=== PATIENT | female | born 1975 | race Caucasian/White ===

== ENCOUNTER 2018-01-29 11:37 | Emergency (ER) | payer OTHER, SELFPAY ==
[2018-01-29 11:38] VITALS: BP 198/115; PULSE 97; RESP 17; TEMP 36.9; O2SAT 98; BMI 24.7
[2018-01-29 11:45] VITALS: BP 212/117; PULSE 100; RESP 14; O2SAT 100
--- NOTE | 2018-01-29 12:33 | ED.DCSUM_ITS ---
- ER Visit Summary Date of Service: 01/29/18 Chief Complaint: Left lower rib cage pain History of Present Illness: The patient is a 42 F no significant past medical or surgical history. Patient states she had a near slip and fall on Monday. This morning to have a left lower rib cage pain. Denies any abdominal pain. The chief complaint was abdominal pain but she does not have any abdominal pain she is having left lower anterior lateral rib cage pain. Associated nausea. No vomiting. No diarrhea or fever. No dysuria. States she denies any fall she slipped but did not she go down she caught herself. Denies any other complaints. No shortness of breath. Pain is worse with movement. Physical Examination: Middle-aged female no acute distress. Vital signs are stable her initial blood pressure 212/117. Pulse ox 100% on room air no signs of hypoxia. H EENT exam unremarkable atraumatic neck nontender. Lungs clear to auscultation bilaterally. Heart regular rate and rhythm no murmur. Chest wall is tender along the left anterior rib cage on the lower aspect. No crepitance. No subcu air. No bony deformity. Abdomen is soft and nontender. She has no abdominal tenderness whatsoever. No ecchymosis or bruising. It is all left lower rib cage pain. Pelvic girdle intact. She is moving all 4 extremities. The neurovascular intact. Calves are nontender without edema or cords. Neurologically she is awake alert with no focal motor deficits. Back exam the posterior ribs are nontender. The spine is nontender. There is no CVA tenderness. Test Results: Chest x-ray 2 views show acute abnormality read both by myself and the radiologist. Emergency Department Course and Treatment: [place] ?2 here for pain. Treatment Plan: Patient is doing well repeat exam. She is absolutely no abdominal pain on either on the first evaluation or her second exam at this time. They are comfortable being discharged home [place] and Motrin for pain. Disposition: Discharge Impression: Left lower rib cage strain This note was generated with [employer] dictation software. It may contain incorrect words, spelling, and punctuation that were not noted in review of the chart prior to signing ED Disposition - Plan for ED Patient: Chief Complaint: Abd Pain Referrals: Steven Dewey MD [Primary Care Provider] -
[2018-01-29] MEDS: HYDROcodone Bitartrate/Apap 5/325 Tablet PO (12:43)
--- NOTE | 2018-01-29 13:27 | RAD_ITS ---
STUDY: X-RAY CHEST REASON FOR EXAM: Female, 42 years old. Left lower rib pain and abdominal pain. TECHNIQUE: PA and lateral views of the chest. COMPARISON: None. FINDINGS: EKG electrodes are seen. The lungs are clear and expanded. Azygos lobe. There is no demonstrated pleural abnormality. Normal size heart. Normal mediastinum and syed. Normal visualized pulmonary arteries. Normal visualized aortic arch and descending thoracic aorta. Normal visualized thoracic spine. Normal visualized ribs, clavicles, and shoulders. There is no demonstrated abnormality of the visualized soft tissue structures of the upper abdomen. RAD/Chest PA and Lateral IMPRESSION: Normal x-ray examination of the chest. Electronically Signed: Dalton Sen MD at 13:59 EDT Tel [phone], Service support ,
[2018-01-29 14:51] VITALS: BP 198/105; PULSE 84; RESP 14; O2SAT 98
--- NOTE | 2018-01-29 15:30 | DCINST.ED_ITS ---
ED Disposition - Plan for ED Patient: Disposition: Home or Assisted Living Chief Complaint: Abd Pain Instructions: ED Strain Chest Wall Prescriptions: Hydrocodone/Acetaminophen [[place] 7.5-325 Tablet] 1 ea PO Q6H PRN PRN #20 tab PRN Reason: Pain Referrals: Steven Dewey MD [Primary Care Provider] - 1 Week if not improving Additional Instructions: Ice to your left lower rib cage and a pillow to support the rib cage. Motrin for pain and inflammation. And [place] for more severe pain.
[2018-01-29 15:40] VITALS: BP 200/108; PULSE 76; RESP 14; O2SAT 97
== END 2018-01-29 15:50 | disposition home or self-care (01) ==
PROVIDERS: Emergency Provider Emergency Medicine; Family Provider Family Medicine; PCP Family Medicine
DX: S29.012A Strain of muscle and tendon of back wall of thorax, initial encounter (principal); W18.40XA Slipping, tripping and stumbling without falling, unspecified, initial encounter; Y93.9 Activity, unspecified; Y92.9 Unspecified place or not applicable; Y99.9 Unspecified external cause status; R11.0 Nausea; Z72.0 Tobacco use; Z86.718 Personal history of other venous thrombosis and embolism
CPT/HCPCS: 71046; 99282

== ENCOUNTER 2018-10-17 14:42 | Emergency (ER) | payer OTHER, SELFPAY ==
[2018-10-17 14:43] VITALS: BP 160/83; PULSE 101; RESP 16; TEMP 36.4; O2SAT 97; BMI 25.9
--- NOTE | 2018-10-17 15:10 | ED.DCSUM_ITS ---
History of Present Illness Chief Complaint: Back Informant: Patient Onset: Today - 1 hour prior to presentation Injury: - - Walking Timing: Continuous Quality: Dull, Aching Location: Lumbar Current Severity: Severe Maximum Severity: Severe Worsened by: improves with: Movement, Ambulation, Bending Relieved by: Nothing Associated Symptoms: Numbness, - - All other associated symptoms were negative Narrative: Patient is a 43-year-old woman who has no significant history with back problems. She does have history of hypertension diagnosed 1 year ago. She denies bowel bladder dysfunction. She denies saddle paresthesia or anesthesia. She reports foot drop. She denies weakness in her quadricep muscle going up or down steps. She reports numbness of her right leg. The entire leg is numb. There is no history of trauma. He denies fever, chills or night sweats. She denies urologic or gynecologic symptoms. She has taken nothing for the pain. Prior similar symptoms: No Recent Illness/Hospitalization: No - Past Medical History (1) History of hypertension Status: Acute Past Medical History - Allergies and Home Meds Allergies/Adverse Reactions: Allergies latex Allergy (Verified 10/17/18 14:45) Rash Primary Care Physician: Tracy Lee NP-C [Primary Care Provider] - Prior records reviewed: Yes Surgical History: no surgical history Lives: Spouse/ Significant Other Smoking Status: Current every day smoker Drugs: None Review of Systems General: Denies: Chills, Fever, Malaise, Sweats ENT: Denies: Rhinorrhea, Sore throat Cardiovascular: Denies: Chest pain Respiratory: Denies: Dyspnea, Cough, Dyspnea on exertion Gastrointestinal: Denies: Abdominal pain, Nausea, Vomiting Genitourinary: Denies: Dysuria, Hematuria, Frequency Musculoskeletal: Reports: Back pain. Denies: Myalgias, Arthralgias, Neck pain, Swelling, Extremity Pain Skin: Denies: Rash, Wounds Neurological: Reports: Numbness. Denies: Headache, Weakness, Parasthesia Hematologic: Denies: Easy bruising Allergy: Denies: Uticaria Physical Exam Vital Signs/Narrative: Vital Signs Temp Pulse Resp BP Pulse Ox 10/17/18 14:43 97.6 F L 101 H 16 160/83 H 97 Inital Vital Signs reviewed: Yes General: Well nourished, Well developed, - - Patient appears uncomfortable with movement and grimaces. Head: Normocephalic, Atraumatic Eyes: Perrl, EOMI. Negative for: Pale conjunctiva, Scleral icterus, - ENT: Moist mucous membranes, No rhinorrhea Neck: Supple, Nontender Cardiovascular: Regular rate, Regular rhythm, No murmurs, Normal S1, Normal S2 Respiratory: No distress, CTA bilaterally, Chest nontender Abdomen: Soft, Nontender, Nondistended, Normal bowel sounds, No masses Rectal: Deferred Back: Normal Inspection, Paraspinal Tenderness - Bilateral, Negative SLR - Right, Negative SLR - Left. Negative for: Nontender Extremeties: Nontender, No edema, - - DP and PT pulse are 2+ and symmetric. Skin: Normal color, No rash Neuro: Alert, Oriented, Normal Strength, Normal Sensation, Normal DTR, Normal Gait, Normal Reflexes - DTR 3+ patella and ankle and symmetric. There is no clonus or Babinski sign., - - Was observed and patient does not have foot drop. She is able to walk on her heels and toes. She is able do one leg squat right and left side. Reflexes: Right Patellar, Right Achilles, Left Patellar, Left Achilles. Negative for: Right Clonus, Right Babinski, Left Clonus, Left Babinski Psychological: Normal affect Diagnostic/Tx/Re-eval - Medical Decision Making Patient's history and physical is consistent with muscular strain. There is no radicular pain and with negative straight leg test and normal neurologic exam imaging is not indicated. Patient was treated with Naprosyn 5 mg and one [place] tablet in the department and discharged with prescription for Naprosyn. She was informed if she is not better in 3 to 5 days she is to follow-up with her primary care physician. She was discharged with appropriate home-going instructions. Differential is muscular pain, herniated disc, vascular disease. Patient did have vascular studies which were unremarkable. ED Disposition - Plan for ED Patient: Disposition: Home or Assisted Living Diagnosis: Acute bilateral low back pain without sciatica Instructions: ED Sprain Strain Lumbar Prescriptions: Naproxen [Naprosyn] 500 mg PO BID #14 tablet Referrals: Tracy Lee NP-C [Primary Care Provider] - 3-5 Days if not improving Additional Instructions: Your prescription was electronically transmitted to [facility] your designated pharmacy of choice.
[2018-10-17 15:13] VITALS: BP 127/87; PULSE 92; RESP 16; O2SAT 98
[2018-10-17] MEDS: HYDROcodone Bitartrate/Apap 5/325 Tablet PO (15:13)
[2018-10-17] MEDS: Naproxen 250 MG Tablet 500 MG PO (15:15)
== END 2018-10-17 15:25 | disposition home or self-care (01) ==
PROVIDERS: Emergency Provider Emergency Medicine; Family Provider Nurse Practitioner Primary Care; PCP Nurse Practitioner Primary Care
DX: M54.5 Low back pain (principal); I10 Essential (primary) hypertension; M21.379 Foot drop, unspecified foot; F17.200 Nicotine dependence, unspecified, uncomplicated; Z79.899 Other long term (current) drug therapy
CPT/HCPCS: 99283

== ENCOUNTER 2020-07-14 20:40 | Emergency (ER) | payer OTHER, SELFPAY ==
[2020-07-14 20:41] VITALS: BP 189/106; PULSE 102; RESP 16; TEMP 36.6; O2SAT 100; BMI 25.6
--- NOTE | 2020-07-14 20:46 | RAD_ITS ---
STUDY: X-RAY - RIGHT ANKLE REASON FOR EXAM: Female, 44 years old. PAIN TECHNIQUE: 3 view(s) of the ankle. COMPARISON: None. FINDINGS: Normal visualized distal tibia and fibula. Normal medial and lateral malleoli. Normal tibiotalar articulation and ankle mortise. Normal visualized talus and calcaneus. The visualized subtalar, talonavicular, calcaneocuboid and tarsal articulations are normal. Soft tissue swelling overlying the lateral malleolus RAD/Ankle min 3 Views IMPRESSION: Mild lateral malleolus sprain. No acute fracture or dislocation Electronically Signed: Law Hernandez MD at 21:01 EST , Service support ,
--- NOTE | 2020-07-14 20:59 | ED.DCSUM_ITS ---
History of Present Illness Chief Complaint: Lower Extremity Injury Informant: Patient Onset: Days Context: Gradual Onset Current Severity: Mild Maximum Severity: Moderate Narrative: Patient presents with pain over the anterior right ankle for the past 3 days. Patient states the night before pain develop she was bowling. She does not remember rolling her ankle or any injury. Someone at work mentioned tonight that she might a blood clot she became concerned about this. No calf pain or swelling. No history of blood clots. - Past Medical History (1) Asthma Status: Chronic (2) GERD (gastroesophageal reflux disease) Status: Chronic (3) History of hypertension Status: Chronic Past Medical History - Allergies and Home Meds Allergies/Adverse Reactions: Allergies latex Allergy (Verified 07/14/20 20:40) Rash Primary Care Physician: Tracy Lee NP, [employer] [Primary Care Provider] - Surgical History: no surgical history Smoking Status: Current every day smoker Review of Systems General: Denies: Chills, Fever Eyes: Denies: Visual changes - bilaterally ENT: Denies: Bilateral ear pain Cardiovascular: Denies: Chest pain Respiratory: Denies: Dyspnea, Cough Gastrointestinal: Denies: Abdominal pain, Nausea, Vomiting, Diarrhea Genitourinary: Denies: Dysuria Musculoskeletal: Reports: Extremity Pain Skin: Denies: Rash Neurological: Denies: Headache Hematologic: Denies: Easy bruising, Easy bleeding Allergy: Denies: Uticaria Physical Exam Vital Signs/Narrative: Vital Signs Temp Pulse Resp BP Pulse Ox 07/14/20 20:41 97.8 F 102 H 16 189/106 H 100 Inital Vital Signs reviewed: Yes General: Well nourished, Well developed Head: Normocephalic ENT: Moist mucous membranes Neck: Supple Cardiovascular: Regular rate, Regular rhythm Respiratory: No distress, CTA bilaterally Abdomen: Soft, Nontender Extremities: - - Tenderness over the anterior ankle along the tendon sheath. No overlying skin changes. No bony tenderness. Strong distal pulses and normal cap refill. Skin: Normal color Neurological: Alert, Oriented x3 Psychological: Normal affect Diagnostic/Tx/Re-eval Right ankle x-rays obtained per nursing protocol. No acute fracture per my interpretation. - Medical Decision Making I discussed with patient I believe she has tendinitis. She will be treated with a prednisone burst. She will continue Tylenol at home. Rc wrap was applied to the ankle. ED Disposition - Plan for ED Patient: Disposition: Home or Assisted Living Diagnosis: Tendinitis of right ankle Instructions: ED Tendonitis Prescriptions: Prednisone [Deltasone] 40 mg PO DAILY #10 tab Transmission Status: Pending to [facility] #30 Referrals: Tracy Lee NP, [employer] [Primary Care Provider] - 1 Week if not improving
[2020-07-14] MEDS: predniSONE 20 MG Tablet 40 MG PO (21:16)
== END 2020-07-14 21:23 | disposition home or self-care (01) ==
LOC: ED 21:11
PROVIDERS: Emergency Provider Emergency Medicine; PCP Nurse Practitioner Primary Care
DX: M77.51 Other enthesopathy of right foot and ankle (principal); I10 Essential (primary) hypertension; J45.909 Unspecified asthma, uncomplicated; K21.9 Gastro-esophageal reflux disease without esophagitis; F17.200 Nicotine dependence, unspecified, uncomplicated; Z79.899 Other long term (current) drug therapy; Z91.040 Latex allergy status
CPT/HCPCS: 73610; 99283

== ENCOUNTER 2021-04-29 12:28 | Emergency (ER) | payer OTHER, SELFPAY ==
[2021-04-29 12:29] VITALS: BP 138/89; PULSE 106; RESP 18; TEMP 35.4; O2SAT 100; BMI 25.3
--- NOTE | 2021-04-29 13:28 | EDS_ITS ---
HPI History of Present Illness HPI Narrative: Patient per with left hip pain that began today. Patient states she was cooking when she started feeling pain in her posterior left hip. Patient denies any falls. Patient denies any trauma or injury. Patient states her pain has been constant. Patient states her pain is throbbing but burning at times. Patient states her pain is worse with ambulation. Patient admits to some numbness and tingling over the left lower leg and into her toes. Chief Complaint: Lower Extremity Injury Informant: patient Onset/Context/Timing Onset: Today Context: Sudden Onset Timing: Continuous Quality of Pain: Burning and Throbbing Location: Left posterior hip and low back Worsened by: Ambulation Relieved by: Nothing Associated Symptoms Associated Symptoms: Positive for Parasthesia; Negative for Weakness and Loss of Funtion PFSH [facility] Medical History (Updated 04/29/21 @ 13:[address] Murtaza Quach DO) High cholesterol Hypertension Medical History no medical history Home Medications amlodipine 2.5 mg PO DAILY 10/17/18 [History Last Taken Unknown] atorvastatin 10 mg PO DAILY 10/17/18 [History Last Taken Unknown] lisinopril-hydrochlorothiazide 1 ea PO DAILY 10/17/18 [History Last Taken Unknown] prednisone 40 mg PO DAILY #10 tab 07/14/20 [Rx Last Taken Unknown] diazepam 5 mg PO Q8 PRN #10 tab 04/29/21 [Rx Last Taken Unknown] naproxen 500 mg PO BID PRN #20 tab 04/29/21 [Rx Last Taken Unknown] Allergy/AdvReac Type Severity Reaction Status Date / Time latex Allergy Rash Verified 04/29/21 12:29 Surgical History (Updated 04/29/21 @ 13:[address] Murtaza Quach DO) Hx of cholecystectomy Social History Smoking Status: Current every day smoker tobacco type: cigarettes ROS ROS ED Constitutional Constitutional ED: Denies chills or fever(s) Eyes Eyes: Denies blurry vision or change in vision ENT ENT ED: Denies rhinorrhea or sore throat Cardiovascular Cardiovascular: Denies chest pain or palpitations Respiratory/Chest Respiratory/Chest: Denies cough or dyspnea Gastrointestinal Gastrointestinal: Denies nausea or vomiting Genitourinary Genitourinary ED: Denies dysuria or hematuria Musculoskeletal Musculoskeletal: Reports back pain; Denies neck pain Integumentary Denies abscess or rash Neurologic Neurologic: Reports paresthesias LLE; Denies headache(s) or weakness Allergic/Immunologic Allergic/Immunologic ED: Denies mouth swelling or urticaria EXAM Physical Exam Const Vital Signs: 04/29/21 12:29 Temperature 95.7 F L Temperature Source Temporal Pulse Rate 106 H Respiratory Rate 18 Blood Pressure 138/89 H Blood Pressure Mean 105 Pulse Ox 100 Oxygen Delivery Method Room Air Positive well nourished HEENT Reports moist mucous membranes Neck full ROM Back/Spine Back/Spine Narrative: There is tenderness to palpation over the left lower lumbar paraspinal muscles. There is tenderness over the sciatic notch and along the distribution of the sciatic nerve. There is no midline tenderness. There is no bony crepitance or step-off. There is good range of motion of the lumbar spine. Strength is 5/5 bilaterally in the lower extremities. There are no s ensory deficits noted. Deep tendon reflexes are 2+/4 bilaterally in the lower extremities. Neuro oriented x3, CN's II-XII intact bilaterally and moves all extremities Sensorium / Orientation: alert Motor Exam: strength 5/5 throughout Deep Tendon Reflexes: Rt Patellar (L4): 2+, Lt Patellar (L4): 2+, Rt Ankle (S1): 2+ and Lt Ankle (S1): 2+ Deep Tendon Reflexes Back: Rt Patellar (L4): 2+, Lt Patellar (L4): 2+, Rt Ankle (S1): 2+ and Lt Ankle (S1): 2+ Psych mental status grossly normal MDM MDM MDM Narrative Medical decision making narrative: Patient was advised of her findings. Patient was advised that this is most likely sciatica nerve pain. Patient was given prescriptions for Naprosyn and Valium to take at night. Patient was instructed to use ice to the area. Patient was instructed to follow-up with her primary care physician in 5 to 7 days. Patient understood and was agreeable with the plan. All questions were answered. Discharge Plan Triage Chief Complaint: Lower Extremity Injury ED Provider: Murtaza Quach Dx/Rx/DC Orders Clinical Impression: Sciatica Instructions: ED Sciatica Prescriptions: New naproxen 500 MG tablet 500 mg PO BID PRN Qty: 20 RF: 0 diazepam [diazepam] 5 MG tablet 5 mg PO Q8 PRN (Reason: Muscle Spasm) Qty: 10 RF: 0 No Action atorvastatin 10 MG tablet 10 mg PO DAILY RF: 0 lisinopril-hydrochlorothiazide 1 EACH tablet 1 ea PO DAILY RF: 0 amlodipine 2.5 MG tablet 2.5 mg PO DAILY RF: 0 prednisone 20 MG tablet 40 mg PO DAILY Qty: 10 RF: 0 Primary Care Provider: Tracy Lee NP Referrals: Tracy Lee NP, [employer] [Primary Care Provider] - Disposition Disposition: Home, Self Care
[2021-04-29] MEDS: diazePAM 5 MG Tablet PO (13:55)
[2021-04-29] MEDS: Naproxen 250 MG Tablet 500 MG PO (13:55)
[2021-04-29 14:02] VITALS: RESP 14
== END 2021-04-29 14:02 | disposition home or self-care (01) ==
PROVIDERS: Emergency Provider Emergency Medicine; PCP Nurse Practitioner Primary Care
DX: M54.32 Sciatica, left side (principal); I10 Essential (primary) hypertension; E78.00 Pure hypercholesterolemia, unspecified; F17.210 Nicotine dependence, cigarettes, uncomplicated; Z79.52 Long term (current) use of systemic steroids; Z79.899 Other long term (current) drug therapy
CPT/HCPCS: 99283

== ENCOUNTER 2022-03-18 23:21 | Inpatient (IN) | payer SELFPAY ==
[2022-03-18 23:21] VITALS: BP 195/124; PULSE 137; RESP 28; TEMP 36.4; O2SAT 94
[2022-03-18 23:22] VITALS: BP 195/124; PULSE 137; RESP 28; TEMP 36.4; O2SAT 94; BMI 26.6
[2022-03-18 23:36] VITALS: O2SAT 95
[2022-03-18 23:41] VITALS: BP 218/109; PULSE 124; RESP 20; O2SAT 95
--- NOTE | 2022-03-18 23:51 | EKG12_ITS ---
Test Reason : DYSRHYTHMIA Blood Pressure : / mmHG Vent. Rate : 123 BPM Atrial Rate : 123 BPM P-R Int : 122 ms QRS Dur : 064 ms QT Int : 336 ms P-R-T Axes : 055 058 043 degrees QTc Int : 481 ms Sinus tachycardia with Premature supraventricular complexes Otherwise normal ECG Confirmed by SIMEON TOLBERT, MARIN ([id number]), image editor ANABELLA BETANCUR ([id number]) on 03/21/2022 8:34:54 AM Referred By: DONNIE Confirmed By:MARIN HENDRIX MD
--- NOTE | 2022-03-18 23:54 | ED.RN ---
no old ekgs on file
[2022-03-19] VITALS (21 sets, daily range): BP systolic 120–196; BP diastolic 68–109; PULSE 77–119; RESP 12–23; TEMP 36.4–37.4; O2SAT 84–100; BMI 25.8
[2022-03-19] MEDS: dilTIAZem 25 MG/5 ML Vial 20 MG IV BOLUS (00:05)
[2022-03-19] MEDS: 0.9% Normal Saline 1,000 ML 999 ML IV (00:06)
--- NOTE | 2022-03-19 00:15 | CT_ITS ---
STUDY: CTA CHEST REASON FOR EXAM: Female, 46 years old. dyspnea RADIATION DOSAGE (If Supplied By Facility): CTDIvol = ( 10.16 ) mGy, DLP = ( 388.54 ) mGycm TECHNIQUE: The examination was performed with the intravenous administration of IV 100mL Isovue-370. Post-processing of the angiographic images was performed, with multiplanar reformation and 3D reconstruction. Individualized dose optimization techniques were used for this CT. COMPARISON: None. FINDINGS: Normal enhancement of the main pulmonary artery and right and left pulmonary arteries. Normal enhancement of the bilateral peripheral pulmonary arteries. There is no demonstrated pulmonary embolism. Normal thoracic aorta and visualized great vessels. There is no demonstrated aortic dissection. Normal heart and pericardium. Normal mediastinum. Normal hilar regions. Normal visualized trachea and bronchi. The lungs are well expanded. There is diffuse interstitial thickening in both lungs suggesting pulmonary edema. Normal pleura. Normal chest wall structures. Normal osseous structures. Normal visualized upper abdomen. CT/CTA Chest W/WO Contrast IMPRESSION: Pulmonary edema. There is no demonstrated pulmonary embolism or arterial dissection. Electronically Signed: Nikolai Keating MD at 1:21 EDT ,
[2022-03-19 00:16] LABS: Absolute Neutrophil Count 6.8 X10^3/uL (2.0-7.7); Basophil# 0.01 X10^3/uL; Basophil% 0.1 % (0-1); Eosinophil# 0.12 X10^3/uL; Eosinophils% 1.1 % (0-5); Hematocrit 37.1 % (37-47); Hemoglobin 13.1 g/dL (12.0-15.0); Lymphocyte % 31.2 % (19-41); Mean Corp Hgb Conc 35.3 g/dL (32-36); Mean Corpuscular Hgb 33.8 pg (27.0-32.0); Mean Corpuscular Volume 95.6 fL (81-99); Mean Platelet Vol. 10.1 fl (6.2-12.0); Monocyte% 7.1 % (0-10); NRBC Flagged by Analyzer 0 % (0-5); Neutrophil # 6.77 X10^3/uL (2.7-7.7); Neutrophil % 60.2 % (47-70); Platelet Count 265 K/mm3 (150-450); RBC Distribution Width CV 13.5 % (11.6-14.6); RBC Distribution Width SD 47.7 fl (35.1-43.9); Red Blood Count 3.88 M/mm3 (4.2-5.4); White Blood Count 11.2 K/mm3 (4.4-11.0)
[2022-03-19 00:24] LABS: Internal QC Validated? YES +Cl - CLEAR BKGD; Pregnancy, Urine Negative Negative
[2022-03-19 00:24] LABS: Partial Thromboplast Time 26.7 Seconds (24.1-36.2); Prothrombin Time (Protime)PT. 12.6 SECONDS (11.7-14.9)
[2022-03-19 00:34] LABS: Anion Gap 10 (5-15); BUN 14 mg/dL (7-18); Calcium,Total 8.6 mg/dL (8.5-10.1); Chloride 106 mmol/L (98-107); Creatinine, Serum 1.17 mg/dL (0.55-1.02); EST Glomerular Filtration Rate 53 mL/min (>60); Est Glom Filt Rate - Afr Amer 64 mL/min (>60); Estimated Creatinine Clearance 48.53 ml/min; Glucose 120 mg/dL (74-106); Magnesium 2.1 mg/dL (1.6-2.6); Potassium 2.9 mmol/L (3.5-5.1); Sodium Level 138 mmol/L (136-145); Troponin-I HS 98 pg/mL (3.0-54.0)
[2022-03-19] MEDS: Morphine 4 MG/ML Syringe IV (00:55)
[2022-03-19] MEDS: Ondansetron 4 MG/2 ML Vial IV ×2 (00:55→14:04)
[2022-03-19] MEDS: Furosemide 40 MG/4 ML Vial IV (01:43)
[2022-03-19] MEDS: Nitroglycerin SL (ED/IMG/CATH) 0.4 MG TABLET SL (01:44)
[2022-03-19 02:16] LABS: BNP,B-Type NATRIURETIC PEPTIDE 542.8 pg/mL (0-100)
[2022-03-19 02:18] LABS: Troponin-I HS 115 pg/mL (3.0-54.0)
[2022-03-19] MEDS: Morphine 2 MG/ML Syringe IV (02:27)
--- NOTE | 2022-03-19 03:20 | EKG12_ITS ---
Test Reason : AM EKG Blood Pressure : / mmHG Vent. Rate : 076 BPM Atrial Rate : 076 BPM P-R Int : 108 ms QRS Dur : 062 ms QT Int : 444 ms P-R-T Axes : 050 060 072 degrees QTc Int : 499 ms Sinus rhythm with short TX Prolonged QT Abnormal ECG When compared with ECG of 19-MAR-2022 04:21, MANUAL COMPARISON REQUIRED, DATA IS UNCONFIRMED Confirmed by LAILA TOLBERT, MASTER ([id number]), restaurant expeditor ANABELLA BETANCUR ([id number]) on 03/21/2022 12:49:12 PM Referred By: SERG Confirmed By:MASTER ULLOA MD
[2022-03-19] MEDS: Aspirin 325 MG Tablet PO (03:21)
[2022-03-19] MEDS: Potassium Chloride Oral Tablet 20 MEQ 40 MEQ PO (03:21)
[2022-03-19] MEDS: Enoxaparin 80 MG/0.8 ML Syringe 70 MG SC ×2 (03:22→21:04)
--- NOTE | 2022-03-19 03:22 | EX.ED.DYSGE1 ---
HPI History of Present Illness Chief Complaint: Shortness of Breath Narrative Narrative: Patient is a 46-year-old female with history of hypertension hyperlipidemia. She states roughly 4 weeks ago she stopped her medications. She reports that she has been feeling normal but this evening she was sitting down watching TV when she developed sudden onset chest pressure and shortness of breath sensation. She denies any nausea vomiting or diaphoresis associated with this. She does report a history of a DVT approximately 3 to 4 years ago and states she is not on blood thinner medication. [facility] Medical History High cholesterol Hypertension Home Medications amlodipine 2.5 mg tablet 2.5 mg PO DAILY 10/17/18 [History Last Taken Unknown] atorvastatin 10 mg tablet 10 mg PO DAILY 10/17/18 [History Last Taken Unknown] lisinopril 20 mg-hydrochlorothiazide 12.5 mg tablet 1 ea PO DAILY 10/17/18 [History Last Taken Unknown] Allergy/AdvReac Type Severity Reaction Status Date / Time latex Allergy Rash Verified 03/18/22 23:38 Family History (Updated 03/19/22 @ 03:[address] Murtaza Elias DO) Other Heart disease Surgical History (Updated 04/29/21 @ 13:[address] Murtaza Quach DO) Hx of cholecystectomy Social History Smoking Status: Current every day smoker tobacco type: cigarettes alcohol intake: current alcohol intake frequency: a few times a month substance use type: marijuana ROS ROS ED Constitutional Constitutional ED: Denies chills or fever(s) ENT ENT ED: Denies sore throat Cardiovascular Cardiovascular: Reports chest pain and racing heartbeat Respiratory/Chest Respiratory/Chest: Reports dyspnea; Denies cough Gastrointestinal Gastrointestinal: Denies abdominal pain, diarrhea, nausea or vomiting Genitourinary Genitourinary ED: Denies dysuria Musculoskeletal Musculoskeletal: Denies myalgias Integumentary Denies rash Neurologic Neurologic: Denies headache(s) Hematologic/Lymphatic Hematologic/Lymphatic: Denies easy bleeding or easy bruising EXAM Physical Exam Const Vital Signs: 03/18/22 23:22 03/18/22 23:21 03/18/22 23:36 Temperature 97.6 F L 97.6 F L Temperature Source Temporal Temporal Pulse Rate 137 H 137 H Respiratory Rate 28 H 28 H Respiratory Effort Short of Breath Labored Blood Pressure 195/124 H 195/124 H Blood Pressure Mean 147 147 Pulse Ox 94 94 Oxygen Delivery Method Room Air Room Air Room Air Oxygen Flow Rate (L/min) 03/18/22 23:41 03/19/22 01:00 03/19/22 01:08 Temperature Temperature Source Pulse Rate 124 H 113 H Respiratory Rate 20 H 20 H Respiratory Effort Blood Pressure 218/109 H 184/95 H Blood Pressure Mean 145 124 Pulse Ox 95 84 93 Oxygen Delivery Method Room Air Room Air Nasal Cannula Oxygen Flow Rate (L/min) 4 03/19/22 01:44 03/19/22 01:59 Temperature Temperature Source Pulse Rate 119 H 107 H Respiratory Rate 12 Respiratory Effort Blood Pressure 192/109 H 166/95 H Blood Pressure Mean 118 Pulse Ox 92 Oxygen Delivery Method Room Air Oxygen Flow Rate (L/min) Positive well nourished and well developed General Appearance ED: well developed HEENT Reports moist mucous membranes Eyes PERRL and EOMs intact bilaterally Neck supple and no JVD Chest Wall palpation of chest normal Resp Resp Narrative: Patient is tachypneic but there is no accessory muscle use nasal flaring or retractions. Breath sounds are slightly diminished throughout with faint rhonchi in the bilateral bases consistent with her history of smoking. Cardio regular rhythm Rate: tachycardic and other Other Details: Tachycardic rate with regular rhythm. radial pulses are plus 2 out of 4 bilaterally are equal and symmetric GI non-tender and non-distended GI Narrative: No voluntary guarding or rigidity no pulsatile mass Auscultation: normoactive bowel sounds Palpation: soft Extremity normal to inspection Extremity Narrative: No asymmetric edema no pitting edema negative Homans' sign bilaterally Neuro oriented x3 and CN's II-XII intact bilaterally Sensorium / Orientation: alert Psych mental status grossly normal Skin no rashes or lesions noted MDM MDM MDM Narrative Medical decision making narrative: Patient presented to the ER hypertensive and tachycardic with tachypnea but was satting in the mid 90s on room air. With the sudden onset of symptoms and the fact she had a previous DVT and is now tachycardic I have concern for development of a pulmonary embolus. Secondary to this a CTA was obtained along with basic blood work. Labs showed hypokalemia with a potassium of 2.9 and elevated troponin at 98. CTA revealed pulmonary edema changes without infiltrate aortic dissection or pulmonary embolus. 2-hour delta troponin did increase slightly to 115. At this time patient will need admitted to the hospital secondary to the elevated troponin and new findings of pulmonary edema. Lab Data Attestation: I reviewed the patient's lab results. Labs: Laboratory Results - last 24 hr 03/19/22 03/19/22 03/19/22 00:07 00:07 00:07 WBC 11.2 H RBC 3.88 L Hgb 13.1 Hct 37.1 MCV 95.6 MCH 33.8 H MCHC 35.3 RDW Std Deviation 47.7 H RDW Coeff of Shilo 13.5 Plt Count 265 MPV 10.1 Immature Gran % (Auto) 0.300 Neut % (Auto) 60.2 Lymph % (Auto) 31.2 [place] % (Auto) 7.1 Eos % (Auto) 1.1 Baso % (Auto) 0.1 Absolute Neuts (auto) 6.8 Absolute Lymphs (auto) 3.50 Nucleated RBC % 0 PT 12.6 INR 1.0 APTT 26.7 Sodium 138 Potassium 2.9 L Chloride 106 Carbon Dioxide 22.0 Anion Gap 10 BUN 14 Creatinine 1.17 H Estim Creat Clear Calc 48.53 Est GFR (MDRD) Af Amer 64 Est GFR (MDRD) Non-Af 53 L BUN/Creatinine Ratio 12.0 Glucose 120 H Calcium 8.6 Magnesium 2.1 Troponin I High Sens 98 H B-Natriuretic Peptide Urine Test 03/19/22 03/19/22 03/19/22 00:10 01:56 01:56 WBC RBC Hgb Hct MCV MCH MCHC RDW Std Deviation RDW Coeff of Shilo Plt Count MPV Immature Gran % (Auto) Neut % (Auto) Lymph % (Auto) [place] % (Auto) Eos % (Auto) Baso % (Auto) Absolute Neuts (auto) Absolute Lymphs (auto) Nucleated RBC % PT INR APTT Sodium Potassium Chloride Carbon Dioxide Anion Gap BUN Creatinine Estim Creat Clear Calc Est GFR (MDRD) Af Amer Est GFR (MDRD) Non-Af BUN/Creatinine Ratio Glucose Calcium Magnesium Troponin I High Sens 115 H B-Natriuretic Peptide 542.8 H Urine Test Negative Radiography Diagnostic Testing: Clinical Impression(s) from Imaging Studies Chest CTA 03/19/22 00:15 IMPRESSION: Pulmonary edema. There is no demonstrated pulmonary embolism or arterial dissection. Electronically Signed: Nikolai Keating MD at 1:21 EDT , Critical Care Time Critical Care Time: Yes Critical care time (excluding procedures): - (Critical care time of 31 minutes) Discharge Plan Triage Chief Complaint: Shortness of Breath ED Provider: Chauncey Ray Dx/Rx/DC Orders Clinical Impression: Non-ST elevated myocardial infarction (non-STEMI), Pulmonary edema, Hypertension, Acute hypokalemia Primary Care Provider: Tracy Lee NP Disposition Disposition: Acute Care Hospital [facility]
--- NOTE | 2022-03-19 03:23 | HP.PCM.HOS_ITS ---
HPI - General General Date of Admission: 03/19/22 Date of Service: 03/19/22 Chief Complaint: chest pain HPI Narrative JESÚS TINOCO, is a 46 F who presents with chest pain. Around 11 PM on the , patient was laying down watching TV where she developed midsternal chest pressure. She felt short of breath as well. And roommate called EMS and scan to the hospital. In the hospital, her blood pressure was extremely high at 218/109. There was concern for PE so patient did undergo a CTA of her chest. No PE was identified but some pulmonary edema was seen. Her troponin went from 98-1 15. Her BNP was elevated at 542. Patient received 20 mg of diltiazem, morphine, nitroglycerin, 40 mg of furosemide, 3 and 25 mg of aspirin, 78 mg of enoxaparin and potassium. Patient feels better but still having chest pressure. Patient has never had an event like this before. Patient does have a history of hypertension but there was an issue with her getting her medications where the prescription had lapsed and patient did not get it filled. She did not feel it necessary as she felt fine. [facility] Medical History High cholesterol Hypertension Home Medications amlodipine 2.5 mg tablet 2.5 mg PO DAILY 10/17/18 [History Last Taken Unknown] atorvastatin 10 mg tablet 10 mg PO DAILY 10/17/18 [History Last Taken Unknown] lisinopril 20 mg-hydrochlorothiazide 12.5 mg tablet 1 ea PO DAILY 10/17/18 [History Last Taken Unknown] Allergy/AdvReac Type Severity Reaction Status Date / Time latex Allergy Rash Verified 03/18/22 23:38 Family History (Updated 03/19/22 @ 03:[address] Murtaza Elias DO) Other Heart disease Surgical History Hx of cholecystectomy Social History (Updated 03/19/22 @ 03:[address] Murtaza Elias DO) Smoking Status: Current every day smoker tobacco type: cigarettes alcohol intake: current alcohol intake frequency: a few times a month substance use type: marijuana Vital Signs Vital Signs Vital Signs: 03/18/22 23:22 03/18/22 23:21 03/18/22 23:36 Temperature 36.4 C L 36.4 C L Temperature Source Temporal Temporal Pulse Rate 137 H 137 H Respiratory Rate 28 H 28 H Respiratory Effort Short of Breath Labored Blood Pressure 195/124 H 195/124 H Blood Pressure Mean 147 147 Pulse Ox 94 94 Oxygen Delivery Method Room Air Room Air Room Air Oxygen Flow Rate (L/min) 03/18/22 23:41 03/19/22 01:00 03/19/22 01:08 Temperature Temperature Source Pulse Rate 124 H 113 H Respiratory Rate 20 H 20 H Respiratory Effort Blood Pressure 218/109 H 184/95 H Blood Pressure Mean 145 124 Pulse Ox 95 84 93 Oxygen Delivery Method Room Air Room Air Nasal Cannula Oxygen Flow Rate (L/min) 4 03/19/22 01:44 03/19/22 01:59 03/19/22 03:13 Temperature 36.7 C Temperature Source Temporal Pulse Rate 119 H 107 H 111 H Respiratory Rate 12 23 H Respiratory Effort Blood Pressure 192/109 H 166/95 H 187/101 H Blood Pressure Mean 118 129 Pulse Ox 92 97 Oxygen Delivery Method Room Air Room Air Oxygen Flow Rate (L/min) Weight Weight: 66.2 kg Body Mass Index (BMI) 26.6 Physical Exam Const alert and no apparent distress HEENT normocephalic, head/scalp atraumatic, hearing grossly normal bilaterally and moist oral mucous membranes Eyes PERRL and EOMs intact bilaterally Neck no lymphadenopathy and supple Resp normal respiratory effort, no retractions, no use of accessory muscles and clear to auscultation bilaterally Cardio regular rate, regular rhythm, S1 normal heart sound and S2 normal heart sound GI normal to inspection, nondistended, normoactive bowel sounds, soft to palpation, non-tender, non-distended and hepatosplenomegaly Extremity normal to inspection and full ROM Neuro moves all extremities and no focal motor deficits Neuro Narrative: Normal gait Psych affect normal Results Lab / Micro Data Attestation: I reviewed the patient's lab results. Result Diagrams: 03/19/22 00:07 03/19/22 00:07 Labs: Laboratory Results - last 24 hr 03/19/22 00:07: WBC 11.2 H, RBC 3.88 L, Hgb 13.1, Hct 37.1, MCV 95.6, MCH 33.8 H , MCHC 35.3, RDW Std Deviation 47.7 H, RDW Coeff of Shilo 13.5, Plt Count 265, MPV 10.1, Immature Gran % (Auto) 0.300, Neut % (Auto) 60.2, Lymph % (Auto) 31.2, Stokes % (Auto) 7.1, Eos % (Auto) 1.1, Baso % (Auto) 0.1, Absolute Neuts (auto) 6.8, Absolute Lymphs (auto) 3.50, Nucleated RBC % 0 03/19/22 00:07: PT 12.6, INR 1.0, APTT 26.7 03/19/22 00:07: Sodium 138, Potassium 2.9 L, Chloride 106, Carbon Dioxide 22.0, Anion Gap 10, BUN 14, Creatinine 1.17 H, Estim Creat Clear Calc 48.53, Est GFR (MDRD) Af Amer 64, Est GFR (MDRD) Non-Af 53 L, BUN/Creatinine Ratio 12.0, Glucose 120 H, Calcium 8.6, Magnesium 2.1, Troponin I High Sens 98 H 03/19/22 00:10: Urine Test Negative 03/19/22 01:56: B-Natriuretic Peptide 542.8 H 03/19/22 01:56: Troponin I High Sens 115 H EKG Initial EKG: Attestation: I personally reviewed and interpreted this EKG as follows: Prior EKG tracings: available for review EKG Rhythm Intrepretation: Sinus Tachycardia Radiology Impression Chest CTA 03/19/22 00:15 IMPRESSION: Pulmonary edema. There is no demonstrated pulmonary embolism or arterial dissection. Electronically Signed: Nikolai Keating MD at 1:21 EDT , Assessment & Plan Assessment/Plan (1) Non-STEMI (non-ST elevated myocardial infarction): PLAN: May be type 2 given CHF and hypertensive urgency. However, risk factors given uncontrolled HTN, tobacco abuse and family history Plan: * continue ASA, enoxaparin * check echo * consult cardiology. DW pt about the possibility of a LHC (if so, then it may not be able to be done until 03/21) (2) CHF exacerbation: PLAN: suspect HFpEF, but no baseline echo. Also, I suspect flash pulmonary edema given hypertensive urgency. Received 40 of IV furosemide in ED Plan: * check echo * furosemide 40 PO BID for now. Pt well compensated now. (3) Hypertensive urgency: PLAN: Has not taken medication in 3 weeks when there was issue for a lapsed Rx. She did not pursue it further since she felt fine. Start lisinopril 20/d in addition to furosmide. PLAN: Plan VTE prophylaxis: anticoagulation. Charges/Coding Visit Charges Inpatient E&M: 59856 Init Hosp L3
[2022-03-19] MEDS: hydrALAZINE 20 MG/ML Vial 5 MG IV ×2 (04:42→09:16)
[2022-03-19 05:46] LABS: Bedside Glucose 107 mg/dL (74-106)
--- NOTE | 2022-03-19 05:55 | ECHOD_ITS ---
Reason For Study: Chest pain, SOB Procedure This was a 2D Doppler, Color Flow transthoracic echocardiogram. The exam was of adequate technical quality. Exam performed portable in patient room. Left Ventricle Normal LV size. Left ventricular systolic function is normal. The estimated ejection fraction is 65 %. Diastolic function is indeterminate. No regional wall motion abnormalities noted. Right Ventricle Normal RV size. Normal systolic function. Atria Normal left atrium. Normal right atrium. No doppler evidence for ASD. Mitral Valve There is no mitral annular calcification. Mild focal mitral valve calcification of the anterior leaflet. Trivial mitral valve insufficiency. Tricuspid Valve Normal tricuspid valve. Trivial tricuspid valve insufficiency. Unable to estimate RV systolic pressure due to insufficient tricuspid regurgitant envelope. Aortic Valve Trisinus/trileaflet aortic valve. Mild focal aortic valve calcification. Pulmonic Valve The pulmonic valve is not well visualized. Great Vessels Normal sized aortic root. Pericardium/Pleural No pericardial effusion. MMode/2D Measurements & Calculations LVIDd: 3.8 cm IVSd: 1.2 cm Ao root diam: 2.3 cm LVIDs: 2.4 cm LVPWd: 1.1 cm RVDd: 3.0 cm FS: 36.4 % LAV(MOD-bp): 38.9 ml LVAd ap4: 19.2 cm2 LVAd ap2: 20.7 cm2 LAV(MOD-bp) Indexed: 23.2 ml/m2 LVLd ap4: 7.0 cm LVLd ap2: 7.5 cm LAV(MOD-sp2): 40.5 ml EDV(MOD-sp4): 43.6 ml EDV(MOD-sp2): 49.2 ml LAV(MOD-sp4): 36.6 ml EDV(sp4-el): 44.6 ml EDV(sp2-el): 48.0 ml LVAs ap4: 11.6 cm2 LVAs ap2: 11.3 cm2 LVLs ap4: 6.2 cm LVLs ap2: 6.7 cm ESV(MOD-sp4): 18.8 ml ESV(MOD-sp2): 17.7 ml ESV(sp4-el): 18.3 ml ESV(sp2-el): 16.3 ml EF(MOD-sp4): 56.9 % EF(MOD-sp2): 64.1 % EF(sp4-el): 58.9 % SV(MOD-sp4): 24.8 ml SV(MOD-sp2): 31.6 ml SV(sp4-el): 26.3 ml LA dimension(2D): 3.8 cm LA A4 area: 14.9 cm2 RA A4 area: 10.2 cm2 Time Measurements MV dec time: 0.14 sec Doppler Measurements & Calculations MV E max nick: 134.9 cm/sec Lat Peak E' Nick: 6.9 cm/sec Med Peak E' Nick: 8.9 cm/sec MV A max nick: 79.8 cm/sec E/E' lat: 19.7 E/E' med: 15.2 MV E/A: 1.7 MV dec slope: 962.1 cm/sec2 Ao V2 max: 170.1 cm/sec LV V1 max: 152.7 cm/sec Ao max P.6 mmHg LV V1 max P.3 mmHg PA V2 max: 89.2 cm/sec ECHO/Echo Complete Interpretation Summary Left ventricular systolic function is normal. The estimated ejection fraction is 65 %. Mild focal mitral valve calcification of the anterior leaflet. Trivial mitral valve insufficiency. Trivial tricuspid valve insufficiency. Mild focal aortic valve calcification. Unable to estimate RV systolic pressure due to insufficient tricuspid regurgita nt envelope. Diastolic function is indeterminate. Ordering Physician: Murtaza Elias Referring Physician: Tracy Lee Performed By: Akilah Becker RDCS
[2022-03-19] MEDS: oxyCODONE 5 MG Tablet PO ×2 (05:58→10:24)
[2022-03-19 06:41] LABS: Troponin-I HS 105 pg/mL (3.0-54.0)
[2022-03-19 06:48] LABS: Anion Gap 9 (5-15); BUN 13 mg/dL (7-18); BUN/Creat Ratio 12.7 RATIO (10-20); Calcium,Total 7.9 mg/dL (8.5-10.1); Chloride 105 mmol/L (98-107); Cholesterol 234 mg/dL (200); Creatinine, Serum 1.02 mg/dL (0.55-1.02); EST Glomerular Filtration Rate 62 mL/min (>60); Est Glom Filt Rate - Afr Amer 76 mL/min (>60); Estimated Creatinine Clearance 55.67 ml/min; Glucose 100 mg/dL (74-106); High Density Lipoprotein 45 mg/dL; Potassium 3.5 mmol/L (3.5-5.1); Sodium Level 136 mmol/L (136-145); Thyroid Stim Hormone (TSH) 3.34 uIU/mL (0.358-3.74); Triglycerides 155 mg/dL; Very Low Density Lipoprotein 31 mg/dL (5-40)
[2022-03-19 07:05] LABS: Bedside Glucose 108 mg/dL (74-106)
[2022-03-19] MEDS: Furosemide 40 MG Tablet PO ×2 (09:08→17:07)
[2022-03-19] MEDS: Lisinopril 20 MG Tablet PO (09:08)
[2022-03-19] MEDS: Aspirin E.C. 81 MG Tablet PO (09:08)
[2022-03-19] MEDS: Acetaminophen 325 MG Tablet 650 MG PO (09:09)
--- NOTE | 2022-03-19 10:50 | CASEMGMT ---
RN CM Face to Face with patient for initial transition planning/care coordination assessment. RN CM introduced self and role at [facility]. Patient lying in bed, alert and oriented, family at bedside. Patient willing to participate in assessment and is able to answer all questions appropriately. Care providers, pharmacy, and demographics verified. Patient wishes to discharge home, denies need for home health at this time. Patient states she has no further needs or concerns at this time. CM to follow for discharge planning needs that may arise. PCP: SHAHNAZ Lee Specialists: none Preferred Pharmacy: [facility] Insurance: [facility] [employer] [facility] Prescription Benefit: yes Living Will/HPOA: none LNOK: mother Living Arrangements: Patient lives with friend in a single story home with 2 steps and railing to enter the home. Patient is independent at home. Transportation: self, family DME/HHC: Patient states he has crutches, grab bars, and BP cuff at home. Patient denies previous HHC Disposition Plan: Patient to discharge home with family support and follow-up plans in place. Jacklyn GLASS, RN, CM
--- NOTE | 2022-03-19 11:46 | PCM.PN.HOSP ---
Subjective Subjective Follow-up for non-STEMI Patient was admitted with chest discomfort and shortness of breath/dyspnea. Patient with high troponin. Blood pressure was high, accelerated hypertension. Chest x-ray initially reviewed and shows pulmonary edema and patient feels better after Lasix. Shortness of breath is improved. She also recently developed cough. Objective Data Objective Data Vital Signs: Vital Signs Temp Pulse Resp BP Pulse Ox O2 Del Method O2 Flow Rate 97.9 F 100 16 155/79 H 100 Room Air 4 03/19/22 10:03/19/22 10:03/19/22 10:03/19/22 10:03/19/22 10:03/19/22 10:03/19/22 01:08 Oxygen Flow Rate (L/min) 4 Oxygen Delivery Method Room Air Weight: 141 lb 1.533 oz Body Mass Index (BMI) 25.8 Intake & Output: Intake and Output for Last 24 Hours 03/17/22 03/18/22 03/19/22 23:59 23:59 23:59 Intake Total 1000 / 1000 Balance 1000 / 1000 Lab / Micro Data Result Diagrams: 03/19/22 00:07 03/19/22 05:32 Labs: Laboratory Results - last 24 hr 03/19/22 00:07: WBC 11.2 H, RBC 3.88 L, Hgb 13.1, Hct 37.1, MCV 95.6, MCH 33.8 H, MCHC 35.3, RDW Std Deviation 47.7 H, RDW Coeff of Shilo 13.5, Plt Count 265, MPV 10.1, Immature Gran % (Auto) 0.300, Neut % (Auto) 60.2, Lymph % (Auto) 31.2, [place] % (Auto) 7.1, Eos % (Auto) 1.1, Baso % (Auto) 0.1, Absolute Neuts (auto) 6.8, Absolute Lymphs (auto) 3.50, Nucleated RBC % 0 03/19/22 00:07: PT 12.6, INR 1.0, APTT 26.7 03/19/22 00:07: Sodium 138, Potassium 2.9 L, Chloride 106, Carbon Dioxide 22.0, Anion Gap 10, BUN 14, Creatinine 1.17 H, Estim Creat Clear Calc 48.53, Est GFR (MDRD) Af Amer 64, Est GFR (MDRD) Non-Af 53 L, BUN/Creatinine Ratio 12.0, Glucose 120 H, Calcium 8.6, Magnesium 2.1, Troponin I High Sens 98 H 03/19/22 00:10: Urine Test Negative 03/19/22 01:56: B-Natriuretic Peptide 542.8 H 03/19/22 01:56: Troponin I High Sens 115 H 03/19/22 04:16: POC Glucose 107 H 03/19/22 05:32: Sodium 136, Potassium 3.5, Chloride 105, Carbon Dioxide 22.0, Anion Gap 9, BUN 13, Creatinine 1.02, Estim Creat Clear Calc 55.67, Est GFR (MDRD) Af Amer 76, Est GFR (MDRD) Non-Af 62, BUN/Creatinine Ratio 12.7, Glucose 100, Calcium 7.9 L, Triglycerides 155, Cholesterol 234 H, LDL Cholesterol 158 H, VLDL Cholesterol 31, HDL Cholesterol 45, TSH 3.34 03/19/22 05:32: Troponin I High Sens 105 H 03/19/22 06:41: POC Glucose 108 H Radiography Diagnostic Testing: Radiology Impression Chest CTA 03/19/22 00:15 IMPRESSION: Pulmonary edema. There is no demonstrated pulmonary embolism or arterial dissection. Electronically Signed: Nikolai Keating MD at 1:21 EDT , Physical Exam Narrative No prior heart disease. Physical exam General: Alert, Oriented x3, Cooperative HEENT: Atraumatic, PERRLA, EOMI, Normocephalic Oral: No Gingival or Mucosal Lesions/ Ulcerations Neck: Supple, No JVD, Negative Carotid Bruits Lungs: Air entry equal in bilateral lung bases. No crepitation/rhonchi Cardiovascular: Regular rate, Regular Rhythm, Normal S1, Normal S2, No murmurs Abdomen: Bowel Sounds Present, Soft, Non Tender, Non-Distended : No renal angle tenderness. No suprapubic tenderness. Extremities: No edema, Capillary Refill Less than 3 Seconds Skin: No rashes, No breakdown Musculoskeletal: No Tenderness to Palpation of Joints or Extremities Neurological: Cranial nerves II-XII grossly intact, DTR 2+/4 and Symmetrical, Neuro grossly intact Psych/Mental Status: Normal Affect, Appropriate. Assessment & Plan Assessment/Plan (1) Non-STEMI (non-ST elevated myocardial infarction): PLAN: Non-STEMI, type II OH due to increased demand from CHF exacerbation and hypertensive urgency/instructed hypertension. However, risk factors given uncontrolled HTN, tobacco abuse and family history right of way clearer shows sinus rhythm/sinus tachycardia. Twelve-lead EKG sinus tachycardia with PAC possible biatrial enlargement. 2D echo EF 65%, no major valve insufficiency/stenosis. Chest CTA individually reviewed shows pulmonary edema. No PE or arterial dissection. Management plan Patient was seen and evaluated by master machinist. Consult reviewed and appreciated. Troponins 98, 115 and 105, flat and mildly elevated. Type II OH event Continue aspirin and enoxaparin. Telephone Information Supervisor recommended continue medical management and will follow whether she requires invasive LHC. (2) CHF exacerbation: PLAN: Acute on chronic HFpEF from uncontrolled blood pressure BNP 542. Heart failure core measures including intake and output, fluid restriction less than 1500 mL, daily weight monitoring, kidney and electrolytes monitoring. Continue Lasix 40 mg twice daily. (3) Hypertensive urgency: PLAN: Has not taken medication in 3 weeks when there was issue for a lapsed Rx. She did not pursue it further since she felt fine. Start lisinopril 20 milligrams daily in addition to furosmide. PLAN: Plan VTE prophylaxis: anticoagulation.
--- NOTE | 2022-03-19 12:30 | CON.PCM.CA_ITS ---
Assessment & Plan Assessment/Plan (1) Non-STEMI (non-ST elevated myocardial infarction): PLAN: The patient is referred for findings compatible with an acute non-ST segment elevation DE. This may be a type II DE secondary to her hypertensive urgency/emergency and subsequent concerns of flash pulmonary edema/CHF. Her cardiac enzymes have remained without significant change. Her ECG demonstrates no acute ECG changes. Her transthoracic echocardiogram demonstrates overall preserved left ventricular wall motion and systolic function/LVEF. At the moment she should continue medical management. As her clinical course progresses consideration will be given as to further noninvasive or invasive evaluation for the possibility of underlying CAD, etc. (2) CHF exacerbation: PLAN: The patient presented with findings thought compatible with acute CHF thought secondary to flash pulmonary edema thought secondary to her hypertensive urgency/emergency. She appears to be symptomatically improved at this time. She will need to continue medical management. It may be reasonable to obtain a follow-up chest x-ray to further evaluate her pulmonary process. She has also undergone evaluation with a transthoracic echocardiogram with the findings as noted. (3) Hypertensive urgency: PLAN: The patient admits she had been without her antihypertensive therapy for a period of time. It appears without her antihypertensive therapy she developed her hypertensive urgency/emergency. Again this may be the trigger for her acute coronary findings/events. She will need to continue medical management to bring her blood pressure under better control. (4) Asthma: PLAN: The patient has a history of asthma. She will continue evaluation care per internal medicine. (5) GERD (gastroesophageal reflux disease): PLAN: The patient has history of GERD. Again she will continue evaluation care per internal medicine. Addt'l Comments The patient's case was discussed and reviewed with the patient and previously with Dr. Elias of the [facility] hospitalist staff. This note was generated using a voice recognition system and there may be incorrect words, spelling or punctuation that were not noted when reviewing the office note prior to saving. HPI Consult Data Date of Consult: 03/19/22 HPI Narrative HPI Narrative: JESÚS TINOCO, is a 46 year old white female who presents for evaluation of chest discomfort/shortness of breath/dyspnea, abnormal cardiac enzymes, hypertensive urgency/emergency, and concerns of possible flash pulmonary edema. The patient admits to a longstanding history of hypertension. She states that she had been without her medication for period of time based upon communication issues between her physician and pharmacist. She felt she was doing well without her medications. She notes recently she had developed a coug h. She notes yesterday she felt more of her cough, a chest pressure sensation, a shortness of breath sensation, a sensation as if she could not get air , and subsequently elected to present to the hospital for further evaluation. She notes that yesterday she would not have been able to lie supine and breathe comfortably. There was no ongoing nausea, emesis, or diaphoresis. She denied any near-syncope or syncope. She states prior to these events, on her good days she had been up and ambulating and feeling well with no concerns. She notes to the best of her knowledge she has no cardiovascular history other than her hypertension. She does not recall going through any previous cardiovascular diagnostic studies. She was evaluated in the emergency department and was noted to have findings of an underlying sinus tachycardia and marked hypertension with a systolic blood pressure 218 mmHg and a diastolic blood pressure 109 mmHg. She was noted to have an elevated troponin I level and an elevated BNP level. She underwent evaluation with a chest CTA which demonstrated concerns of pulmonary edema but no findings of thromboembolic disease or great vessel disease. She was subsequently treated with additional medical therapy which reportedly included aspirin, nitroglycerin sublingual, morphine sulfate, IV diltiazem, IV furosemide, potassium supplement, and subcutaneous enoxaparin. She was then placed in the PCU for further evaluation and care. This was for concerns of a non-ST segment elevation DE and CHF thought secondary to hypertensive urgency/emergency. She has undergone subsequent evaluation with additional troponin I levels. It is noted her troponin I levels have not changed significantly with respect to a peak and decline. She has had no new acute electrocardiographic changes. Her cardiac rhythm has remained sinus rhythm. Today she states she feels much better. She states she does not have the chest pressure. She notes her breathing is much improved. She states she has been able to lie back and breathe more comfortably which she would not of been able to do prior to coming to the hospital. She is also undergone evaluation with a transthoracic echocardiogram. The results are noted below. [facility] Medical History High cholesterol Hypertension Home Medications amlodipine 2.5 mg tablet 2.5 mg PO DAILY Check with primary doctor 10/17/18 [History Last Taken Unknown] atorvastatin 10 mg tablet 10 mg PO DAILY Check with primary doctor 10/17/18 [History Last Taken Unknown] lisinopril 20 mg-hydrochlorothiazide 12.5 mg tablet 1 ea PO DAILY Check with primary doctor 10/17/18 [History Last Taken Unknown] Allergy/AdvReac Type Severity Reaction Status Date / Time latex Allergy Rash Verified 03/18/22 23:38 Family History (Updated 03/19/22 @ 03:[address] Murtaza Elias DO) Other Heart disease Surgical History Hx of cholecystectomy Social History (Updated 03/19/22 @ 03:[address] Murtaza Elias DO) Smoking Status: Current every day smoker tobacco type: cigarettes alcohol intake: current alcohol intake frequency: a few times a month substance use type: marijuana ROS Constitutional Constitutional: Reports as per HPI Eyes Eyes: Reports as per HPI ENT HEENT: Reports as per HPI Cardiovascular Cardiovascular: Reports chest pain, dyspnea and orthopnea Respiratory/Chest Respiratory/Chest: Reports dyspnea Gastrointestinal Gastrointestinal: Reports as per HPI Genitourinary Genitourinary: Reports as per HPI Musculoskeletal Musculoskeletal: Reports as per HPI Integumentary Integumentary: Reports as per HPI Neurologic Neurologic: Reports as per HPI Psychiatric Psychiatric: Reports as per HPI Physical Exam Const alert, oriented x3, no apparent distress and healthy appearing Orientation / Consciousness: awake HEENT normocephalic, head/scalp atraumatic and hearing grossly normal bilaterally Eyes PERRL, EOMs intact bilaterally, conjunctivae normal and no scleral icterus Neck full ROM, supple and no JVD Carotids: normal carotid upstroke Resp normal respiratory effort Auscultation: diminished lung sounds bilateral lower Cardio regular rate, regular rhythm, S1 normal heart sound and S2 normal heart sound Cardio Narrative: Positive S4 Heart Sounds: gallop S4 gallop and abnormal sounds GI normal to inspection, nondistended, normoactive bowel sounds Extremity no pedal edema Skin no rashes or lesions noted Psych mental status grossly normal Risk Stratification Risk Stratification Applicable: Yes Age >/= 65: No >/= 3 CAD Risk Factors (HTN, HLD, DM, family hx of CAD, or current smoker): Yes Aspirin Use in the Past 7 Days: No Severe Angina (>/= episodes in 24 hours): No EKG ST Changes >/= 0.5mm: No Positive Cardiac Marker: Yes JAMES Risk Stratification Score: 2 JAMES % Risk: 8% Risk Procedure Criteria Type of Procedure Procedure Type: Elective Elective Risks - COVID COVID Risk Discussion: The surgeon/proceduralist and patient have discussed in detail the risk of exposure to and/or potential harm posed by the COVID-19 virus with having a surgery/procedure at this time versus the risk of delaying the surgery/procedure. It is not possible to know either the risk of delaying the surgery or procedure or chance of getting an infection with perfect accuracy, but a joint decision was made between the patient and the surgeon/proceduralist to proceed at this time with the scheduled surgery/procedure as indicated on the consent form. Objective Data Vital Signs: Vital Signs Temp Pulse Resp BP Pulse Ox O2 Del Method O2 Flow Rate 97.9 F 100 16 155/79 H 100 Room Air 4 03/19/22 10:22 03/19/22 10:22 03/19/22 10:03/19/22 10:03/19/22 10:03/19/22 10:03/19/22 01:08 Oxygen Flow Rate (L/min) 4 Oxygen Delivery Method Room Air Weight: 141 lb 1.533 oz Body Mass Index (BMI) 25.8 Intake & Output: Intake and Output for Last 24 Hours 03/17/22 03/18/22 03/19/22 23:59 23:59 23:59 Intake Total 1000 / 1000 Balance 1000 / 1000 Lab / Micro Data Result Diagrams: 03/19/22 00:07 03/19/22 05:32 Labs: Laboratory Results - last 24 hr 03/19/22 00:07: WBC 11.2 H, RBC 3.88 L, Hgb 13.1, Hct 37.1, MCV 95.6, MCH 33.8 H , MCHC 35.3, RDW Std Deviation 47.7 H, RDW Coeff of Shilo 13.5, Plt Count 265, MPV 10.1, Immature Gran % (Auto) 0.300, Neut % (Auto) 60.2, Lymph % (Auto) 31.2, Rhea % (Auto) 7.1, Eos % (Auto) 1.1, Baso % (Auto) 0.1, Absolute Neuts (auto) 6.8, Absolute Lymphs (auto) 3.50, Nucleated RBC % 0 03/19/22 00:07: PT 12.6, INR 1.0, APTT 26.7 03/19/22 00:07: Sodium 138, Potassium 2.9 L, Chloride 106, Carbon Dioxide 22.0, Anion Gap 10, BUN 14, Creatinine 1.17 H, Estim Creat Clear Calc 48.53, Est GFR (MDRD) Af Amer 64, Est GFR (MDRD) Non-Af 53 L, BUN/Creatinine Ratio 12.0, Glucose 120 H, Calcium 8.6, Magnesium 2.1, Troponin I High Sens 98 H 03/19/22 00:10: Urine Test Negative 03/19/22 01:56: B-Natriuretic Peptide 542.8 H 03/19/22 01:56: Troponin I High Sens 115 H 03/19/22 04:16: POC Glucose 107 H 03/19/22 05:32: Sodium 136, Potassium 3.5, Chloride 105, Carbon Dioxide 22.0, Anion Gap 9, BUN 13, Creatinine 1.02, Estim Creat Clear Calc 55.67, Est GFR (MDRD) Af Amer 76, Est GFR (MDRD) Non-Af 62, BUN/Creatinine Ratio 12.7, Glucose 100, Calcium 7.9 L, Triglycerides 155, Cholesterol 234 H, LDL Cholesterol 158 H, VLDL Cholesterol 31, HDL Cholesterol 45, TSH 3.34 03/19/22 05:32: Troponin I High Sens 105 H 03/19/22 06:41: POC Glucose 108 H Cardiology Labs/Tests 03/19/22 00:07: WBC 11.2 H, RBC 3.88 L, Hgb 13.1, Hct 37.1, MCV 95.6, MCH 33.8 H , MCHC 35.3, Plt Count 265, MPV 10.1, Immature Gran % (Auto) 0.300, Neut % (Auto) 60.2, Lymph % (Auto) 31.2, Rhea % (Auto) 7.1, Eos % (Auto) 1.1, Baso % (Auto) 0.1, Absolute Neuts (auto) 6.8, Nucleated RBC % 0 03/19/22 00:07: PT 12.6, INR 1.0, APTT 26.7 03/19/22 00:07: Sodium 138, Potassium 2.9 L, Chloride 106, Carbon Dioxide 22.0, Anion Gap 10, BUN 14, Creatinine 1.17 H, Est GFR (MDRD) Af Amer 64, Est GFR (MDRD) Non-Af 53 L, BUN/Creatinine Ratio 12.0, Glucose 120 H, Calcium 8.6, Magnesium 2.1 03/19/22 01:56: B-Natriuretic Peptide 542.8 H 03/19/22 05:32: Sodium 136, Potassium 3.5, Chloride 105, Carbon Dioxide 22.0, Anion Gap 9, BUN 13, Creatinine 1.02, Est GFR (MDRD) Af Amer 76, Est GFR (MDRD) Non-Af 62, BUN/Creatinine Ratio 12.7, Glucose 100, Calcium 7.9 L, Triglycerides 155, Cholesterol 234 H, LDL Cholesterol 158 H, VLDL Cholesterol 31, HDL Cholesterol 45 Rhythm: Sinus rhythm/sinus tachycardia EKG: Sinus rhythm/sinus tachycardia; PACs; possible biatrial enlargement ECHO: As noted below Radiography Diagnostic Testing: Radiology Impression Chest CTA 03/19/22 00:15 IMPRESSION: Pulmonary edema. There is no demonstrated pulmonary embolism or arterial dissection. Electronically Signed: Nikolai Keating MD at 1:21 EDT , Echocardiogram 03/19/22 05:55 Interpretation Summary Left ventricular systolic function is normal. The estimated ejection fraction is 65 %. Mild focal mitral valve calcification of the anterior leaflet. Trivial mitral valve insufficiency. Trivial tricuspid valve insufficiency. Mild focal aortic valve calcification. Unable to estimate RV systolic pressure due to insufficient tricuspid regurgitant envelope. Diastolic function is indeterminate. Ordering Physician: Murtaza Elias Referring Physician: Tracy Lee Performed By: Akilah Becker RDCS
[2022-03-19] MEDS: Carvedilol 3.125 MG TABLET PO ×2 (14:04→21:03)
[2022-03-19] MEDS: amLODIPine 2.5 MG Tablet PO (14:04)
[2022-03-19] MEDS: Ketorolac 15 MG/ML Vial IV (16:26)
[2022-03-19 17:11] LABS: Hemoglobin A1c 5.2 % (3.8-5.6)
[2022-03-19] MEDS: Atorvastatin Calcium 10 MG Tablet PO (21:03)
[2022-03-20] VITALS (10 sets, daily range): BP systolic 127–170; BP diastolic 69–95; PULSE 77–96; RESP 16–18; TEMP 36.6–37.1; O2SAT 94–98
[2022-03-20] MEDS: Acetaminophen 325 MG Tablet 650 MG PO (03:24)
--- NOTE | 2022-03-20 05:19 | NURSING ---
pt. off floor to x-ray
--- NOTE | 2022-03-20 05:20 | RAD_ITS ---
EXAM: XR CHEST, 2 VIEWS CLINICAL INDICATION: CHF TECHNIQUE: Frontal and lateral views of the chest. This report was created using [employer] report generation technology. COMPARISON: XR Chest dated 01/29/2018 FINDINGS: LUNGS AND PLEURAL SPACES: Normal. No consolidation or edema. No pneumothorax. No effusion. HEART: Normal heart size. MEDIASTINUM: No mediastinal or hilar mass. BONES/JOINTS: No acute abnormality. SOFT TISSUES: Normal. RAD/Chest PA and Lateral IMPRESSION: No acute cardiopulmonary abnormality. No interval change. Electronically Signed: Obinna Miramontes MD at 8:22 EDT ,
[2022-03-20 06:02] LABS: Absolute Lymphocyte Count 3.14 X10^3/uL (0.83-4.51); Absolute Neutrophil Count 4.3 X10^3/uL (2.0-7.7); Basophil# 0.01 X10^3/uL; Basophil% 0.1 % (0-1); Eosinophils% 1.2 % (0-5); Hematocrit 42.2 % (37-47); Hemoglobin 13.9 g/dL (12.0-15.0); Lymphocyte # 3.14 X10^3/ul (0.83-4.51); Lymphocyte % 37.5 % (19-41); Mean Corp Hgb Conc 32.9 g/dL (32-36); Mean Corpuscular Hgb 32.2 pg (27.0-32.0); Mean Corpuscular Volume 97.7 fL (81-99); Mean Platelet Vol. 10.1 fl (6.2-12.0); Monocyte# 0.79 X10^3/uL; Monocyte% 9.4 % (0-10); NRBC Flagged by Analyzer 0 % (0-5); Neutrophil # 4.31 X10^3/uL (2.7-7.7); Neutrophil % 51.6 % (47-70); Platelet Count 303 K/mm3 (150-450); RBC Distribution Width CV 13.6 % (11.6-14.6); RBC Distribution Width SD 49.4 fl (35.1-43.9); Red Blood Count 4.32 M/mm3 (4.2-5.4); White Blood Count 8.4 K/mm3 (4.4-11.0)
[2022-03-20 06:17] LABS: Anion Gap 7 (5-15); BUN 13 mg/dL (7-18); BUN/Creat Ratio 11.1 RATIO (10-20); Calcium,Total 8.5 mg/dL (8.5-10.1); Chloride 103 mmol/L (98-107); Creatinine, Serum 1.17 mg/dL (0.55-1.02); EST Glomerular Filtration Rate 53 mL/min (>60); Est Glom Filt Rate - Afr Amer 64 mL/min (>60); Estimated Creatinine Clearance 48.53 ml/min; Glucose 104 mg/dL (74-106); Potassium 3.4 mmol/L (3.5-5.1); Sodium Level 135 mmol/L (136-145)
[2022-03-20] MEDS: Aspirin E.C. 81 MG Tablet PO (08:40)
[2022-03-20] MEDS: amLODIPine 2.5 MG Tablet PO (08:41)
[2022-03-20] MEDS: Lisinopril 20 MG Tablet PO (08:41)
[2022-03-20] MEDS: Furosemide 40 MG Tablet PO ×2 (08:41→17:10)
[2022-03-20] MEDS: Carvedilol 3.125 MG TABLET PO (08:41)
--- NOTE | 2022-03-20 10:24 | CT_ITS ---
EXAM: CT HEAD WITHOUT INTRAVENOUS CONTRAST CLINICAL INDICATION: HEADACHE TECHNIQUE: Multiple axial images were obtained of the head without intravenous contrast. This CT exam was performed using one or more of the following dose reduction techniques: automated exposure control, adjustment of the mA and/or kV according to patient size, and/or use of iterative reconstruction technique. This report was created using [employer] technology. COMPARISON: None. FINDINGS: BRAIN AND EXTRA-AXIAL SPACES: Normal. No intra- or extra-axial hemorrhage. No evidence of acute infarct. No intracranial mass or mass effect. There is preservation of the sy/white matter interface. Posterior fossa structures are unremarkable. Ventricles are appropriate for age. No hydrocephalus. Basal cisterns are patent. BONES/JOINTS: Normal. No discrete lytic or blastic abnormalities. SINUSES: Unremarkable as visualized. No acute sinusitis. MASTOID AIR CELLS: Normal. Clear. ORBITS: Visualized globes, extraocular muscles, optic nerves and retrobulbar fat appear unremarkable. CT/Brain/Head without Contrast IMPRESSION: Normal CT brain without intravenous contrast. Electronically Signed: Obinna Miramontes MD at 10:50 EDT ,
[2022-03-20] MEDS: Pantoprazole Sodium 40 MG Tablet PO (10:26)
[2022-03-20] MEDS: Ibuprofen 400 MG Tablet PO (10:26)
--- NOTE | 2022-03-20 13:12 | PN.CARD_ITS ---
Subjective Subjective The patient is awake and alert. She states overall she does feel better. She notes that it still is uncomfortable for her to take a deep breath. At times she states she can hear herself wheezing. Objective Data Vital Signs: Vital Signs Temp Pulse Resp BP Pulse Ox O2 Del Method O2 Flow Rate 98.0 F 77 16 152/95 H 98 Room Air 4 03/20/22 08:35 03/20/22 08:35 03/20/22 08:35 03/20/22 08:35 03/20/22 10:59 03/20/22 10:59 03/19/22 01:08 Oxygen Flow Rate (L/min) 4 Oxygen Delivery Method Room Air Weight: 141 lb 1.533 oz Body Mass Index (BMI) 25.8 Intake & Output: Intake and Output for Last 24 Hours 03/18/22 03/19/22 03/20/22 23:59 23:59 23:59 Intake Total 1900 / 1900 Output Total 100 / 100 Balance 1800 / 1800 Lab / Micro Data Result Diagrams: 03/20/22 05:35 03/20/22 05:35 Labs: Laboratory Results - last 24 hr 03/19/22 05:32: Hemoglobin A1c 5.2 03/20/22 05:35: WBC 8.4, RBC 4.32, Hgb 13.9, Hct 42.2, MCV 97.7, MCH 32.2 H, MCHC 32.9 D, RDW Std Deviation 49.4 H, RDW Coeff of Shilo 13.6, Plt Count 303, MPV 10.1, Immature Gran % (Auto) 0.200, Neut % (Auto) 51.6, Lymph % (Auto) 37.5, Williamson % (Auto) 9.4, Eos % (Auto) 1.2, Baso % (Auto) 0.1, Absolute Neuts (auto) 4.3, Absolute Lymphs (auto) 3.14, Nucleated RBC % 0 03/20/22 05:35: Sodium 135 L, Potassium 3.4 L, Chloride 103, Carbon Dioxide 25.0, Anion Gap 7, BUN 13, Creatinine 1.17 H, Estim Creat Clear Calc 48.53, Est GFR (MDRD) Af Amer 64, Est GFR (MDRD) Non-Af 53 L, BUN/Creatinine Ratio 11.1, Glucose 104, Calcium 8.5 Cardiology Labs/Tests 03/19/22 05:32: Hemoglobin A1c 5.2 03/20/22 05:35: WBC 8.4, RBC 4.32, Hgb 13.9, Hct 42.2, MCV 97.7, MCH 32.2 H, MCHC 32.9 D, Plt Count 303, MPV 10.1, Immature Gran % (Auto) 0.200, Neut % (Auto) 51.6, Lymph % (Auto) 37.5, Williamson % (Auto) 9.4, Eos % (Auto) 1.2, Baso % (Auto) 0.1, Absolute Neuts (auto) 4.3, Nucleated RBC % 0 03/20/22 05:35: Sodium 135 L, Potassium 3.4 L, Chloride 103, Carbon Dioxide 25.0, Anion Gap 7, BUN 13, Creatinine 1.17 H, Est GFR (MDRD) Af Amer 64, Est GFR (MDRD) Non-Af 53 L, BUN/Creatinine Ratio 11.1, Glucose 104, Calcium 8.5 Rhythm: Sinus rhythm Radiography Diagnostic Testing: Radiology Impression Chest X-Ray 03/20/22 05:20 IMPRESSION: No acute cardiopulmonary abnormality. No interval change. Electronically Signed: Obinna Miramontes MD at 8:22 EDT , Brain CT 03/20/22 10:24 IMPRESSION: Normal CT brain without intravenous contrast. Electronically Signed: Obinna Miramontes MD at 10:50 EDT , Physical Exam Const alert, oriented x3, no apparent distress and healthy appearing Orientation / Consciousness: awake HEENT normocephalic, head/scalp atraumatic and hearing grossly normal bilaterally Eyes PERRL, EOMs intact bilaterally, conjunctivae normal and no scleral icterus Neck full ROM, supple and no JVD Carotids: normal carotid upstroke Resp normal respiratory effort Auscultation: wheezes right lower Cardio regular rate, regular rhythm, S1 normal heart sound and S2 normal heart sound Cardio Narrative: Positive S4 Heart Sounds: gallop S4 gallop and abnormal sounds GI normal to inspection, nondistended, normoactive bowel sounds Extremity no pedal edema Skin no rashes or lesions noted Psych mental status grossly normal Assessment & Plan Assessment/Plan (1) Non-STEMI (non-ST elevated myocardial infarction): PLAN: The patient is referred for findings compatible with an acute non-ST segment elevation MO. This may be a type II MO secondary to her hypertensive urgency/emergency and subsequent concerns of flash pulmonary edema/CHF. Her cardiac enzymes have remained without significant change. Her ECG demonstrated no acute ECG changes. Her transthoracic echocardiogram demonstrates overall preserved left ventricular wall motion and systolic function/LVEF. At the moment she should continue medical management. Her case has been discussed and reviewed with her. Based upon her cardiovascular risks and her cardiovascular event it was felt reasonable that she undergo further evaluation for the possibility of CAD with a diagnostic cardiac catheterization. The procedure and risk were discussed with her. She was agreeable to this approach. (2) CHF exacerbation: PLAN: The patient presented with findings thought compatible with acute CHF thought secondary to flash pulmonary edema thought secondary to her hypertensive urgency/emergency. She appears to be symptomatically improved at this time. Her chest x-ray was reviewed. She had no new acute cardiopulmonary findings. She will need to continue medical management. She has also undergone evaluation with a transthoracic echocardiogram with the findings as noted. She will continue evaluation and care as noted. (3) Hypertensive urgency: PLAN: The patient admits she had been without her antihypertensive therapy for a period of time. It appears without her antihypertensive therapy she developed her hypertensive urgency/emergency. Again this may be the trigger for her acute coronary findings/events. Her medications will be adjusted and attempt to bring her blood pressure under better control. (4) Asthma: PLAN: The patient has a history of asthma. She states she does hear herself wheeze at times. She will continue evaluation care per internal medicine. (5) GERD (gastroesophageal reflux disease): PLAN: The patient has history of GERD. Again she will continue evaluation care per internal medicine. Addt'l Comments The patient's case was discussed and reviewed with the patient, her mother who was present at the time, and Dr. Laguna. This note was generated using a voice recognition system and there may be incorrect words, spelling or punctuation that were not noted when reviewing the office note prior to saving. Procedure Criteria Type of Procedure Procedure Type: Elective Elective Risks - COVID COVID Risk Discussion: The surgeon/proceduralist and patient have discussed in detail the risk of exposure to and/or potential harm posed by the COVID-19 virus with having a surgery/procedure at this time versus the risk of delaying the surgery/procedure. It is not possible to know either the risk of delaying the surgery or procedure or chance of getting an infection with perfect accuracy, but a joint decision was made between the patient and the surgeon/proceduralist to proceed at this time with the scheduled surgery/procedure as indicated on the consent form.
[2022-03-20] MEDS: Potassium Chloride Oral Tablet 20 MEQ 40 MEQ PO (13:35)
--- NOTE | 2022-03-20 14:32 | PN.HOSP_ITS ---
Subjective Subjective Follow-up for non-STEMI and headache. Patient complain of headache after nitro sublingual but it persisted yesterday afternoon and night and was given 2 doses of IV Toradol 15 mg. Patient had a mild headache in the morning and gave Motrin low-dose [address] head was done. Patient did not have chest pain or shortness of breath in the morning today. Objective Data Objective Data Vital Signs: Vital Signs Temp Pulse Resp BP Pulse Ox O2 Del Method O2 Flow Rate 98.2 F 80 16 157/78 H 96 Room Air 4 03/20/22 13:33 03/20/22 13:33 03/20/22 13:33 03/20/22 13:33 03/20/22 13:33 03/20/22 13:33 03/19/22 01:08 Oxygen Flow Rate (L/min) 4 Oxygen Delivery Method Room Air Weight: 141 lb 1.533 oz Body Mass Index (BMI) 25.8 Intake & Output: Intake and Output for Last 24 Hours 03/18/22 03/19/22 03/20/22 23:59 23:59 23:59 Intake Total 1900 / 1900 Output Total 100 / 100 Balance 1800 / 1800 Lab / Micro Data Result Diagrams: 03/20/22 05:35 03/20/22 05:35 Labs: Laboratory Results - last 24 hr 03/19/22 05:32: Hemoglobin A1c 5.2 03/20/22 05:35: WBC 8.4, RBC 4.32, Hgb 13.9, Hct 42.2, MCV 97.7, MCH 32.2 H, MCHC 32.9 D, RDW Std Deviation 49.4 H, RDW Coeff of Shilo 13.6, Plt Count 303, MPV 10.1, Immature Gran % (Auto) 0.200, Neut % (Auto) 51.6, Lymph % (Auto) 37.5, Long % (Auto) 9.4, Eos % (Auto) 1.2, Baso % (Auto) 0.1, Absolute Neuts (auto) 4.3, Absolute Lymphs (auto) 3.14, Nucleated RBC % 0 03/20/22 05:35: Sodium 135 L, Potassium 3.4 L, Chloride 103, Carbon Dioxide 25.0, Anion Gap 7, BUN 13, Creatinine 1.17 H, Estim Creat Clear Calc 48.53, Est GFR (MDRD) Af Amer 64, Est GFR (MDRD) Non-Af 53 L, BUN/Creatinine Ratio 11.1, Glucose 104, Calcium 8.5 Radiography Diagnostic Testing: Radiology Impression Chest X-Ray 03/20/22 05:20 IMPRESSION: No acute cardiopulmonary abnormality. No interval change. Electronically Signed: Obinna Miramontes MD at 8:22 EDT , Brain CT 03/20/22 10:24 IMPRESSION: Normal CT brain without intravenous contrast. Electronically Signed: Obinna Miramontes MD at 10:50 EDT , Physical Exam Narrative environmental monitoring technician shows sinus rhythm. Patient does not have history of chronic migraine headache tension headache. General: Alert, Oriented x3, Cooperative HEENT: Atraumatic, PERRLA, EOMI, Normocephalic Oral: No Gingival or Mucosal Lesions/ Ulcerations Neck: Supple, No JVD, Negative Carotid Bruits Lungs:? Air entry equal in bilateral lung bases.? No crepitation/rhonchi Cardiovascular: Regular rate, Regular Rhythm, Normal S1, Normal S2, No murmurs Abdomen: Bowel Sounds Present, Soft, Non Tender, Non-Distended : No renal angle tenderness.? No suprapubic tenderness. Extremities: No edema, Capillary Refill Less than 3 Seconds Skin: No rashes, No breakdown Musculoskeletal: No Tenderness to Palpation of Joints or Extremities Neurological: Cranial nerves II-XII grossly intact, DTR? 2+/4 and Symmetrical, no focal neurological deficit. Psych/Mental Status: Normal Affect, Appropriate. Assessment & Plan Assessment/Plan (1) Non-STEMI (non-ST elevated myocardial infarction): PLAN: Plan 1. Non-STEMI, type II TX due to increased demand from? CHF exacerbation and hypertensive urgency/instructed hypertension. However, risk factors given uncontrolled HTN, tobacco abuse and family history environmental monitoring technician shows sinus rhythm/sinus tachycardia.? Twelve-lead EKG sinus tachycardia with PAC possible biatrial enlargement.? 2D echo EF 65%, no major valve insufficiency/stenosis.? Chest CTA individually reviewed shows pulmonary edema.? No PE or arterial dissection. Management plan Patient was seen and evaluated by spool cleaner.? Consult reviewed and appreciated.? Troponins 98, 115 and 105, flat and mildly elevated.? Type II TX event Continue aspirin and enoxaparin.? 03/20: Discussed with spool cleaner. Plan for 2D echo and [facility] cardiac cath tomorrow AM. Fasting profile shows total cholesterol 234, LDL 158, HDL normal. TSH normal. A1c 5.2%.Patient on high intensity atorvastatin. (2) CHF exacerbation: PLAN: Acute on chronic HFpEF from uncontrolled blood pressure BNP 542. Heart failure core measures including intake and output, fluid restriction less than 1500 mL, daily weight monitoring, kidney and electrolytes monitoring.? Continue Lasix 40 mg twice daily. (3) Hypertensive urgency: PLAN: Has not taken medication in 3 weeks when there was issue for a lapsed Rx. She did not pursue it further since she felt fine. Start lisinopril 20 milligrams daily in addition to furosmide. 03/20: Blood pressure improved. 151/89. 4. Headache, exact etiology unclear: Resolved. CT is not an acute change. Probably mild tension headache. Charges/Coding Visit Charges Inpatient E&M: 78981 Subs Hosp L2
[2022-03-20] MEDS: Carvedilol 6.25 MG Tablet PO (21:30)
[2022-03-20] MEDS: predniSONE 20 MG Tablet 60 MG PO (21:31)
[2022-03-20] MEDS: DiphenhydrAMINE 25 MG Capsule 50 MG PO (21:31)
[2022-03-20] MEDS: Famotidine 20 MG Tablet PO (21:31)
[2022-03-20] MEDS: Atorvastatin Calcium 40 MG Tablet PO (21:32)
[2022-03-21] VITALS (13 sets, daily range): BP systolic 126–175; BP diastolic 75–108; PULSE 69–95; RESP 15–18; TEMP 36.6–36.8; O2SAT 94–99
--- NOTE | 2022-03-21 05:00 | EKG12_ITS ---
Test Reason : CP Blood Pressure : / mmHG Vent. Rate : 100 BPM Atrial Rate : 100 BPM P-R Int : 110 ms QRS Dur : 064 ms QT Int : 388 ms P-R-T Axes : 049 046 043 degrees QTc Int : 500 ms Sinus rhythm with short HI Prolonged QT Abnormal ECG No previous ECGs available Confirmed by LAILA TOLBERT, MASTER ([id number]), editor index ANABELLA BETANCUR ([id number]) on 03/21/2022 12:58:30 PM Referred By: YONG Confirmed By:MASTER ULLOA MD
[2022-03-21] MEDS: Aspirin E.C. 81 MG Tablet PO (06:03)
[2022-03-21] MEDS: Lisinopril 20 MG Tablet PO (06:03)
[2022-03-21] MEDS: Carvedilol 6.25 MG Tablet PO ×2 (06:03→10:58)
[2022-03-21] MEDS: amLODIPine 5 MG Tablet PO ×2 (06:04→11:59)
[2022-03-21 06:17] LABS: Absolute Lymphocyte Count 0.97 X10^3/uL (0.83-4.51); Absolute Neutrophil Count 6.7 X10^3/uL (2.0-7.7); Basophil# 0.01 X10^3/uL; Basophil% 0.1 % (0-1); Eosinophil# 0.01 X10^3/uL; Eosinophils% 0.1 % (0-5); Hematocrit 40.7 % (37-47); Hemoglobin 13.7 g/dL (12.0-15.0); Lymphocyte # 0.97 X10^3/ul (0.83-4.51); Lymphocyte % 12.4 % (19-41); Mean Corp Hgb Conc 33.7 g/dL (32-36); Mean Corpuscular Hgb 33.3 pg (27.0-32.0); Mean Corpuscular Volume 98.8 fL (81-99); Mean Platelet Vol. 10.3 fl (6.2-12.0); Monocyte# 0.14 X10^3/uL; Monocyte% 1.8 % (0-10); NRBC Flagged by Analyzer 0 % (0-5); Neutrophil # 6.67 X10^3/uL (2.7-7.7); Neutrophil % 85.3 % (47-70); Platelet Count 299 K/mm3 (150-450); RBC Distribution Width CV 13.4 % (11.6-14.6); RBC Distribution Width SD 48.4 fl (35.1-43.9); Red Blood Count 4.12 M/mm3 (4.2-5.4); White Blood Count 7.8 K/mm3 (4.4-11.0)
[2022-03-21 06:32] LABS: Anion Gap 8 (5-15); BUN 12 mg/dL (7-18); Calcium,Total 8.8 mg/dL (8.5-10.1); Chloride 108 mmol/L (98-107); Creatinine, Serum 1.09 mg/dL (0.55-1.02); EST Glomerular Filtration Rate 58 mL/min (>60); Est Glom Filt Rate - Afr Amer 70 mL/min (>60); Estimated Creatinine Clearance 52.09 ml/min; Glucose 135 mg/dL (74-106); Potassium 4.1 mmol/L (3.5-5.1); Sodium Level 136 mmol/L (136-145)
[2022-03-21] MEDS: DiphenhydrAMINE 25 MG Capsule 50 MG PO (07:36)
[2022-03-21] MEDS: Famotidine 20 MG Tablet PO (07:36)
--- NOTE | 2022-03-21 08:00 | NURSING ---
Called report to Janet SRINIVASAN in laborer hoisting
--- NOTE | 2022-03-21 08:22 | CASEMGMT ---
According to the [facility] website, the following are in-network tertiary facilities: [facility], [facility], [facility], and . Jennifer SRINIVASAN CM
--- NOTE | 2022-03-21 08:49 | PCM.PN.HOSP ---
Objective Data Objective Data Vital Signs: Vital Signs Temp Pulse Resp BP Pulse Ox O2 Del Method O2 Flow Rate 97.9 F 87 15 159/79 H 94 Room Air 4 03/21/22 07:39 03/21/22 07:39 03/21/22 07:39 03/21/22 07:39 03/21/22 07:49 03/21/22 07:49 03/19/22 01:08 Oxygen Flow Rate (L/min) 4 Oxygen Delivery Method Room Air Weight: 141 lb 1.533 oz Body Mass Index (BMI) 25.8 Intake & Output: Intake and Output for Last 24 Hours 03/19/22 03/20/22 03/21/22 23:59 23:59 23:59 Intake Total 1900 / 1900 1040 / 1040 Output Total 100 / 100 Balance 1800 / 1800 1040 / 1040 Lab / Micro Data Result Diagrams: 03/21/22 04:48 03/21/22 04:48 Labs: Laboratory Results - last 24 hr 03/21/22 04:48: WBC 7.8, RBC 4.12 L, Hgb 13.7, Hct 40.7, MCV 98.8, MCH 33.3 H, MCHC 33.7, RDW Std Deviation 48.4 H, RDW Coeff of Shilo 13.4, Plt Count 299, MPV 10.3, Immature Gran % (Auto) 0.300, Neut % (Auto) 85.3 H, Lymph % (Auto) 12.4 L, [place] % (Auto) 1.8, Eos % (Auto) 0.1, Baso % (Auto) 0.1, Absolute Neuts (auto) 6.7, Absolute Lymphs (auto) 0.97, Nucleated RBC % 0 03/21/22 04:48: Sodium 136, Potassium 4.1, Chloride 108 H, Carbon Dioxide 20.0 L, Anion Gap 8, BUN 12, Creatinine 1.09 H, Estim Creat Clear Calc 52.09, Est GFR (MDRD) Af Amer 70, Est GFR (MDRD) Non-Af 58 L, BUN/Creatinine Ratio 11.0, Glucose 135 H, Calcium 8.8 Radiography Diagnostic Testing: Radiology Impression Brain CT 03/20/22 10:24 IMPRESSION: Normal CT brain without intravenous contrast. Electronically Signed: Obinna Miramontes MD at 10:50 EDT Reading Location ID and State: [facility] / [place] Tel , Service support , Physical Exam Narrative monitoring manager shows sinus rhythm. Patient does not have history of chronic migraine headache tension headache. General: Alert, Oriented x3, Cooperative HEENT: Atraumatic, PERRLA, EOMI, Normocephalic Oral: No Gingival or Mucosal Lesions/ Ulcerations Neck: Supple, No JVD, Negative Carotid Bruits Lungs:? Air entry equal in bilateral lung bases.? No crepitation/rhonchi Cardiovascular: Regular rate, Regular Rhythm, Normal S1, Normal S2, No murmurs Abdomen: Bowel Sounds Present, Soft, Non Tender, Non-Distended : No renal angle tenderness.? No suprapubic tenderness. Extremities: No edema, Capillary Refill Less than 3 Seconds Skin: No rashes, No breakdown Musculoskeletal: No Tenderness to Palpation of Joints or Extremities Neurological: Cranial nerves II-XII grossly intact, DTR? 2+/4 and Symmetrical, no focal neurological deficit. Psych/Mental Status: Normal Affect, Appropriate. Assessment & Plan Assessment/Plan (1) Non-STEMI (non-ST elevated myocardial infarction): PLAN: Plan 1. Non-STEMI, type II NV due to increased demand from? CHF exacerbation and hypertensive urgency/instructed hypertension. However, risk factors given uncontrolled HTN, tobacco abuse and family history monitoring manager shows sinus rhythm/sinus tachycardia.? Twelve-lead EKG sinus tachycardia with PAC possible biatrial enlargement.? 2D echo EF 65%, no major valve insufficiency/stenosis.? Chest CTA individually reviewed shows pulmonary edema.? No PE or arterial dissection. Management plan Patient was seen and evaluated by compo caster.? Consult reviewed and appreciated.? Troponins 98, 115 and 105, flat and mildly elevated.? Type II NV event Continue aspirin and enoxaparin.? 03/20: Discussed with compo caster. Plan for 2D echo and [facility] cardiac cath tomorrow AM. Fasting profile shows total cholesterol 234, LDL 158, HDL normal. TSH normal. A1c 5.2%.Patient on high intensity atorvastatin. (2) CHF exacerbation: PLAN: Acute on chronic HFpEF from uncontrolled blood pressure BNP 542. Heart failure core measures including intake and output, fluid restriction less than 1500 mL, daily weight monitoring, kidney and electrolytes monitoring.? Continue Lasix 40 mg twice daily. (3) Hypertensive urgency: PLAN: Has not taken medication in 3 weeks when there was issue for a lapsed Rx. She did not pursue it further since she felt fine. Start lisinopril 20 milligrams daily in addition to furosmide. 03/20: Blood pressure improved. 151/89. 4. Headache, exact etiology unclear: Resolved. CT is not an acute change. Probably mild tension headache.
--- NOTE | 2022-03-21 09:22 | CL.D_ITS ---
Patient Name: JESÚS TINOCO Study Date: 03/21/2022 Performing: Servando Nam MD Ht: 62 inches 157.48 cm : 1975 Wt: 141.3 lbs 64 kg Age: 46 Gender: female BSA: 1.65 PROCEDURE(S) PERFORMED [id number])[facility] CLINICAL PROFILE AND INDICATIONS Indications: ACS > 24 hrs Heart Failure: NYHA Class: 3, Newly Diagnosed: Yes, Heart Failure Type: Diastolic Stress/Imaging Stress/Image Study Performed: No Angina Classification Anginal Classification w/in 2 Weeks: Anginal Equivalent Dyspnea CAD Presentations: Non-STEMI. CONCLUSIONS Normal coronary arteries RECOMMENDATIONS Risk factor modification Medical therapy DESCRIPTION OF PROCEDURE The patient arrived to the procedure lab. The risks and benefits of the procedure as well as a full description of our services here and current unavailability of surgical backup were fully explained to the patient and/or their significant other prior to the catheterization. The Timeout was completed, verifying the correct patient and procedure. The patient's procedural site was prepped and draped in the usual fashion. Local anesthetic was given subcutaneously to right radial region with Lidocaine 2%. Using a modified Seldinger technique, arterial access was obtained via the right radial artery, a 6Fr sheath was inserted. Left Coronary Artery selective angiography was performed in multiple views using a 5 Fr. 4.0 [place] catheter. Right Coronary Artery selective angiography was then performed in multiple views using a 5 Fr. 4.0 [place] catheter.The arterial sheath was pulled and a TR Band was applied for hemostasis CORONARY ANGIOGRAPHY DOMINANCE: Right Dominant LEFT HEART ASSESSMENT Left Ventricular Ejection Fraction: Not assessed LEFT MAIN: Angiographically normal LEFT ANTERIOR DESCENDING ARTERY: Angiographically normal CIRCUMFLEX ARTERY: Angiographically normal RIGHT CORONARY ARTERY: Angiographically normal COMPLICATIONS No Complications PROCEDURE MEDICATIONS Fentanyl 50 mcg IV Versed 1 mg IV Fentanyl 50 mcg IV Versed 1 mg IV Oxygen: 2 L/min via nasal cannula Heparin given [place] 03/21/2022 08:25:43 Solu-medrol 125 mg IV 03/21/2022 08:17:28 SUMMARY OF HEMODYNAMIC DATA Time AIR REST ECG 08:12:14 AO 163/78 (108) SA 08:54:10 Signed By Servando Nam MD On 03/21/2022 09:21:34 Servando Nam MD
--- NOTE | 2022-03-21 09:25 | PN.CARD_ITS ---
Subjective Subjective The patient is now that is post diagnostic cardiac catheterization. She has no new acute complaints. Objective Data Vital Signs: Vital Signs Temp Pulse Resp BP Pulse Ox O2 Del Method O2 Flow Rate 97.9 F 87 15 159/79 H 94 Room Air 4 03/21/22 07:39 03/21/22 07:39 03/21/22 07:39 03/21/22 07:39 03/21/22 07:49 03/21/22 07:49 03/19/22 01:08 Oxygen Flow Rate (L/min) 4 Oxygen Delivery Method Room Air Weight: 141 lb 1.533 oz Body Mass Index (BMI) 25.8 Intake & Output: Intake and Output for Last 24 Hours 03/19/22 03/20/22 03/21/22 23:59 23:59 23:59 Intake Total 1900 / 1900 1040 / 1040 Output Total 100 / 100 Balance 1800 / 1800 1040 / 1040 Lab / Micro Data Result Diagrams: 03/21/22 04:48 03/21/22 04:48 Labs: Laboratory Results - last 24 hr 03/21/22 04:48: WBC 7.8, RBC 4.12 L, Hgb 13.7, Hct 40.7, MCV 98.8, MCH 33.3 H, MCHC 33.7, RDW Std Deviation 48.4 H, RDW Coeff of Shilo 13.4, Plt Count 299, MPV 10.3, Immature Gran % (Auto) 0.300, Neut % (Auto) 85.3 H, Lymph % (Auto) 12.4 L, [place] % (Auto) 1.8, Eos % (Auto) 0.1, Baso % (Auto) 0.1, Absolute Neuts (auto) 6.7, Absolute Lymphs (auto) 0.97, Nucleated RBC % 0 03/21/22 04:48: Sodium 136, Potassium 4.1, Chloride 108 H, Carbon Dioxide 20.0 L , Anion Gap 8, BUN 12, Creatinine 1.09 H, Estim Creat Clear Calc 52.09, Est GFR (MDRD) Af Amer 70, Est GFR (MDRD) Non-Af 58 L, BUN/Creatinine Ratio 11.0, Glucose 135 H, Calcium 8.8 Cardiology Labs/Tests 03/21/22 04:48: WBC 7.8, RBC 4.12 L, Hgb 13.7, Hct 40.7, MCV 98.8, MCH 33.3 H, MCHC 33.7, Plt Count 299, MPV 10.3, Immature Gran % (Auto) 0.300, Neut % (Auto) 85.3 H, Lymph % (Auto) 12.4 L, [place] % (Auto) 1.8, Eos % (Auto) 0.1, Baso % (Auto) 0.1, Absolute Neuts (auto) 6.7, Nucleated RBC % 0 03/21/22 04:48: Sodium 136, Potassium 4.1, Chloride 108 H, Carbon Dioxide 20.0 L , Anion Gap 8, BUN 12, Creatinine 1.09 H, Est GFR (MDRD) Af Amer 70, Est GFR (MDRD) Non-Af 58 L, BUN/Creatinine Ratio 11.0, Glucose 135 H, Calcium 8.8 Rhythm: Sinus rhythm Cardiac Cath: CONCLUSIONS Normal coronary arteries RECOMMENDATIONS Risk factor modification Medical therapy DESCRIPTION OF? PROCEDURE The patient arrived to the procedure lab. The risks and benefits of the procedure as well as a full description of our services here and current unavailability of surgical backup were fully explained to the patient and/or their significant other prior to the catheterization. The Timeout was completed, verifying the correct patient and procedure. The patient's procedural site was prepped and draped in the usual fashion. Local anesthetic was given subcutaneously to right radial region with Lidocaine 2%. Using a modified Seldinger technique, arterial access was obtained via the right radial artery, a 6Fr sheath was inserted.? Left Coronary Artery selective angiography was performed in multiple views using a 5 Fr. 4.0 [place] catheter. Right Coronary Artery selective angiography was then performed in multiple views using a 5 Fr. 4.0 [place] catheter.The arterial sheath was pulled and a TR Band was applied for hemostasis CORONARY ANGIOGRAPHY DOMINANCE:? Right Dominant LEFT HEART ASSESSMENT Left Ventricular Ejection Fraction: Not assessed LEFT MAIN: Angiographically normal LEFT ANTERIOR DESCENDING ARTERY: Angiographically normal CIRCUMFLEX ARTERY: Angiographically normal RIGHT CORONARY ARTERY: Angiographically normal Radiography Diagnostic Testing: Radiology Impression Brain CT 03/20/22 10:24 IMPRESSION: Normal CT brain without intravenous contrast. Electronically Signed: Obinna Miramontes MD at 10:50 EDT , Physical Exam Const alert, oriented x3, no apparent distress and healthy appearing Orientation / Consciousness: awake HEENT normocephalic, head/scalp atraumatic and hearing grossly normal bilaterally Eyes PERRL, EOMs intact bilaterally, conjunctivae normal and no scleral icterus Neck full ROM, supple and no JVD Carotids: normal carotid upstroke Resp normal respiratory effort Auscultation: wheezes right lower Cardio regular rate, regular rhythm, S1 normal heart sound and S2 normal heart sound Cardio Narrative: Positive S4 Heart Sounds: gallop S4 gallop and abnormal sounds GI normal to inspection, nondistended, normoactive bowel sounds Extremity no pedal edema Skin no rashes or lesions noted Psych mental status grossly normal Assessment & Plan Assessment/Plan (1) Non-STEMI (non-ST elevated myocardial infarction): PLAN: The patient is referred for findings compatible with an acute non-ST segment elevation [place]. Based upon her cardiac catheterization findings demonstrating angiographically normal-appearing coronary arteries this appears to be a type II event thought secondary to her hypertension. Her transthoracic echocardiogram demonstrates overall preserved left ventricular wall motion and systolic function/LVEF. At the moment she will continue medical management. (2) CHF exacerbation: PLAN: The patient presented with findings thought compatible with acute CHF thought secondary to flash pulmonary edema thought secondary to her hyperten sive urgency/emergency. She appears to be symptomatically improved at this time. Her chest x-ray was reviewed. She had no new acute cardiopulmonary findings. Her transthoracic echocardiogram has been previously reviewed with preserved left ventricular wall motion and systolic function/LVEF. Her cardiac catheterization demonstrates angiographically normal-appearing coronary arteries. She will continue medical management. (3) Hypertensive urgency: PLAN: The patient admits she had been without her antihypertensive therapy for a period of time. It appears without her antihypertensive therapy she developed her hypertensive urgency/emergency. Again this may be the trigger for her acute coronary findings/events. Her medications will be adjusted and attempt to bring her blood pressure under better control. (4) Asthma: PLAN: The patient has a history of asthma. She states she does hear herself wheeze at times. She will continue evaluation care per internal medicine. (5) GERD (gastroesophageal reflux disease): PLAN: The patient has history of GERD. Again she will continue evaluation care per internal medicine. Addt'l Comments The patient's case has been discussed and reviewed with the patient, her mother, and the aforementioned information has been forwarded to Dr. Laguna. This note was generated using a voice recognition system and there may be inco rrect words, spelling or punctuation that were not noted when reviewing the office note prior to saving. Procedure Criteria Type of Procedure Procedure Type: Elective Elective Risks - COVID COVID Risk Discussion: The surgeon/proceduralist and patient have discussed in detail the risk of exposure to and/or potential harm posed by the COVID-19 virus with having a surgery/procedure at this time versus the risk of delaying the surgery/procedure. It is not possible to know either the risk of delaying the surgery or procedure or chance of getting an infection with perfect accuracy, but a joint decision was made between the patient and the surgeon/proceduralist to proceed at this time with the scheduled surgery/procedure as indicated on the consent form.
[2022-03-21] MEDS: 0.9% Normal Saline 1,000 ML 75 ML IV (09:30)
[2022-03-21] MEDS: Potassium Chloride Oral Tablet 20 MEQ 40 MEQ PO (10:19)
[2022-03-21] MEDS: Pantoprazole Sodium 40 MG Tablet PO (10:19)
[2022-03-21] MEDS: Furosemide 40 MG Tablet PO (10:19)
--- NOTE | 2022-03-21 10:41 | PCM.DC ---
Discharge Instructions Diet Discharge Diet: 2000 mg Sodium Diet Activity Discharge Activity: Return to Normal Activity (From tomorrow, 03/22/2022) Dressing / Incision Call your doctor if you observe: Fever of 101 or Higher, Coldness, Increased Pain, Numbness or Tingling, Change in Color, Inability to urinate, Inability to have a bowel movement, Using more than 1 pad per hour, Shortness of breath, Dizziness, Fainting spells, Swelling in the ankles, Chest pain, Prolonged hiccupping, Increased palpitations (irregular heartbeat), Calf discomfort and Uncontrolled pain Follow Up Care Test Results: Test results from this visit will be discussed in further detail at your follow-up appointment, if applicable. Discharge Plan Admission Admit Date/Time: 03/19/22 03:10 Attending Provider: Teodoro Laguna Primary Care Provider: Tracy Lee NP Consulting Providers: Servando Nam ; Murtaza Elias Discharge Orders/Prescriptions Prescriptions: New atorvastatin 40 mg Tablet 40 mg PO 2200 Qty: 30 2RF carvedilol 12.5 mg Tablet 12.5 mg PO BIDCM Qty: 60 2RF lisinopril 20 mg Tablet 20 mg PO BID Qty: 60 2RF aspirin 81 mg Tablet,Delayed Release (Dr/Ec) 81 mg PO BREAKFAST Qty: 30 2RF amlodipine 10 mg Tablet 10 mg PO DAILY Qty: 30 2RF nitroglycerin 0.4 mg Tablet, Sublingual 0.4 mg sublingual Q5M PRN (Reason: CHEST PAIN) Qty: 30 0RF hydrochlorothiazide 25 mg Tablet 25 mg PO DAILY Qty: 30 1RF Discontinued atorvastatin 10 MG tablet 10 mg PO DAILY lisinopril-hydrochlorothiazide 1 EACH tablet 1 ea PO DAILY amlodipine 2.5 MG tablet 2.5 mg PO DAILY Label Comments: Take 1 tablet by mouth daily Referrals / Follow Up: Tracy Lee NP, STATEMENT DISTRIBUTION CLERK-C [Primary Care Provider] - Disposition Disposition (needs filled in before D/C Order can be placed): Home, Self Care
[2022-03-21] MEDS: hydroCHLOROthiazide 25 MG Tablet PO (10:58)
--- NOTE | 2022-03-21 11:59 | DS.PCM_ITS ---
Providers Date of Admission: 03/19/22 Date of Discharge: 03/21/22 Primary Care Physician: SHANON Yoo Consultations 03/19/22 03:57 Consult: Cardiology Routine Consulting Provider: Servando Nam Reason for Consult: Chest Pain EMERGENT Consult: No MD Notified: Yes Date Notified: 03/19/22 Time Notified: 03:14 Method of Notification: Verbal Reason For Visit: NSTEMI Diagnosis Discharge Diagnosis (1) Non-STEMI (non-ST elevated myocardial infarction): Status: Acute Code(s): I21.4 - Non-ST elevation (NSTEMI) myocardial infarction (2) CHF exacerbation: Status: Chronic Code(s): I50.9 - Heart failure, unspecified (3) Hypertensive urgency: Status: Acute Code(s): I16.0 - Hypertensive urgency (4) Asthma: Status: Chronic Code(s): J45.909 - Unspecified asthma, uncomplicated (5) GERD (gastroesophageal reflux disease): Status: Chronic Code(s): K21.9 - Gastro-esophageal reflux disease without esophagitis Medications at Discharge Home Medications amlodipine 10 mg tablet 10 mg PO DAILY #30 tabs 03/21/22 aspirin 81 mg tablet,delayed release 81 mg PO BREAKFAST #30 tabs 03/21/22 atorvastatin 40 mg tablet 40 mg PO 2200 #30 tabs 03/21/22 carvedilol 12.5 mg tablet 12.5 mg PO BIDCM #60 tabs 03/21/22 hydrochlorothiazide 25 mg tablet 25 mg PO DAILY #30 tabs 03/21/22 lisinopril 20 mg tablet 20 mg PO BID #60 tabs 03/21/22 nitroglycerin 0.4 mg sublingual tablet 0.4 mg sublingual Q5M PRN CHEST PAIN #30 tabs 03/21/22 Hospital Course Summary of Care Provided Hospital Course: This is 46-year-old female who was admitted with midsternal chest pain associated shortness of breath. Her chest pain was more like discomfort/pressure. Patient had high troponin. Blood pressure was high, accelerated hypertension. Chest x-ray initially reviewed and shows pulmonary edema and was treated with Lasix.? Shortness of breath is improved.? She also recently developed cough. 1. Non-STEMI, type II ME due to increased demand from? CHF exacerbation and hypertensive urgency/accelerated hypertension. However, risk factors given uncontrolled HTN, tobacco abuse and family history cardiac monitor technician shows sinus rhythm/sinus tachycardia.? Twelve-lead EKG sinus tachycardia with PAC possible biatrial enlargement.? 2D echo EF 65%, no major valve insufficiency/stenosis.? Chest CTA individually reviewed shows pulmonary e kathryn.? No PE or arterial dissection. Management plan Patient was seen and evaluated by club licensee.? Consult reviewed and appreciated.? Troponins 98, 115 and 105, flat and mildly elevated.? Type II ME event Continue aspirin and enoxaparin.? 03/20: Discussed with club licensee. Plan for [facility] cardiac cath tomorrow AM. Fasting profile shows total cholesterol 234, LDL 158, HDL normal. TSH normal. A1c 5.2%.Patient on high intensity atorvastatin. 03/21: Patient had cardiac cath which showed angiographically normal coronary arteries. Patient deemed high risk for coronary artery disease in future, patient was started on baby aspirin and prescription given. (2) CHF exacerbation: Acute on chronic HFpEF from uncontrolled blood pressure BNP 542. Heart failure core measures including intake and output, fluid restriction less than 1500 mL, daily weight monitoring, kidney and electrolytes monitoring.? Continue Lasix 40 mg twice daily. Patient was managed with Lasix but she is well fluid balanced. HCTZ increased 25 mg daily. Follow-up with PCP. (3) Hypertensive urgency: PLAN: Has not taken medication in 3 weeks when there was issue for a lapsed Rx. She did not pursue it further since she felt fine. 03/20: Blood pressure improved. 151/89. 03/21 blood pressure was controlled with lisinopril 20 mg p.o. twice daily, carvedilol, amlodipine and HCTZ. Prescriptions for antihypertensive medication and atorvastatin sent to pharmacy. 4. Headache, exact etiology unclear: Resolved. CT is not an acute change. Probably mild tension headache. Got better with NSAIDs Discharge medication reconciliation done. Discharge follow-up instructions completed. Discharge process discussed with the patient and all questions were answered to patient's satisfaction. Total time spent, exact 35 minutes on discharge meds reconciliation, examination, coordination of care with nurses and ancillary staff, review of imaging and blood test and discussion with the patient on follow-up instruction s. Physical Exam Narrative cardiac monitor technician shows sinus rhythm. Patient does not have history of chronic migraine headache tension headache. General: Alert, Oriented x3, Cooperative HEENT: Atraumatic, PERRLA, EOMI, Normocephalic Oral: No Gingival or Mucosal Lesions/ Ulcerations Neck: Supple, No JVD, Negative Carotid Bruits Lungs:? Air entry equal in bilateral lung bases.? No crepitation/rhonchi Cardiovascular: Regular rate, Regular Rhythm, Normal S1, Normal S2, No murmurs Abdomen: Bowel Sounds Present, Soft, Non Tender, Non-Distended : No renal angle tenderness.? No suprapubic tenderness. Extremities: No edema, Capillary Refill Less than 3 Seconds Skin: No rashes, No breakdown Musculoskeletal: No Tenderness to Palpation of Joints or Extremities Neurological: Cranial nerves II-XII grossly intact, DTR? 2+/4 and Symmetrical, no focal neurological deficit. Psych/Mental Status: Normal Affect, Appropriate. Weight / BMI Weight Weight: 141 lb 1.533 oz Body Mass Index (BMI) 25.8 ABG / Lab / Microbiology Data Result Diagrams: 03/21/22 04:48 03/21/22 04:48 Laboratory: Laboratory Results - last 24 hr 03/21/22 04:48: WBC 7.8, RBC 4.12 L, Hgb 13.7, Hct 40.7, MCV 98.8, MCH 33.3 H, MCHC 33.7, RDW Std Deviation 48.4 H, RDW Coeff of Shilo 13.4, Plt Count 299, MPV 10.3, Immature Gran % (Auto) 0.300, Neut % (Auto) 85.3 H, Lymph % (Auto) 12.4 L, [place] % (Auto) 1.8, Eos % (Auto) 0.1, Baso % (Auto) 0.1, Absolute Neuts (auto) 6.7, Absolute Lymphs (auto) 0.97, Nucleated RBC % 0 03/21/22 04:48: Sodium 136, Potassium 4.1, Chloride 108 H, Carbon Dioxide 20.0 L , Anion Gap 8, BUN 12, Creatinine 1.09 H, Estim Creat Clear Calc 52.09, Est GFR (MDRD) Af Amer 70, Est GFR (MDRD) Non-Af 58 L, BUN/Creatinine Ratio 11.0, Glucose 135 H, Calcium 8.8 D/C Instructions Discharge Diet: 2000 mg Sodium Diet Call your doctor if you observe: Fever of 101 or Higher, Coldness, Increased Pain, Numbness or Tingling, Change in Color, Inability to urinate, Inability to have a bowel movement, Using more than 1 pad per hour, Shortness of breath, Dizziness, Fainting spells, Swelling in the ankles, Chest pain, Prolonged hiccupping, Increased palpitations (irregular heartbeat), Calf discomfort and Uncontrolled pain Meaningful Use Info Meaningful Use Diagnoses (Choose all that apply): CHF CHF SUMA/ARB ordered at discharge?: Yes Documented LVEF (%): 65 Discharge Plan Admission Admit Date/Time: 03/19/22 03:10 Attending Provider: Teodoro Laguna Primary Care Provider: Tracy Lee NP Consulting Providers: Servando Nam ; Murtaza Elias Discharge Orders/Prescriptions Prescriptions: New atorvastatin 40 mg Tablet 40 mg PO 2200 Qty: 30 2RF carvedilol 12.5 mg Tablet 12.5 mg PO BIDCM Qty: 60 2RF lisinopril 20 mg Tablet 20 mg PO BID Qty: 60 2RF aspirin 81 mg Tablet,Delayed Release (Dr/Ec) 81 mg PO BREAKFAST Qty: 30 2RF amlodipine 10 mg Tablet 10 mg PO DAILY Qty: 30 2RF nitroglycerin 0.4 mg Tablet, Sublingual 0.4 mg sublingual Q5M PRN (Reason: CHEST PAIN) Qty: 30 0RF hydrochlorothiazide 25 mg Tablet 25 mg PO DAILY Qty: 30 1RF Discontinued atorvastatin 10 MG tablet 10 mg PO DAILY lisinopril-hydrochlorothiazide 1 EACH tablet 1 ea PO DAILY amlodipine 2.5 MG tablet 2.5 mg PO DAILY Label Comments: Take 1 tablet by mouth daily Referrals / Follow Up: Tracy Lee NP, [employer] [Primary Care Provider] - Within 2 Weeks Servando Nam MD [Med Staff - Active Staff] - Within 1 Month Disposition Disposition (needs filled in before D/C Order can be placed): Home, Self Care Charges/Coding Visit Charges Inpatient E&M: 68269 Disch Hosp
== END 2022-03-21 13:51 | disposition home or self-care (01) | DRG 280 ==
LOC: ED 03-19 00:14 → PCU 03-19 03:11
PROVIDERS: Emergency Provider Emergency Medicine; PCP Nurse Practitioner Primary Care; Visit Provider Internal Medicine
DX: I16.0 Hypertensive urgency (principal); I21.A1 Myocardial infarction type 2; I50.33 Acute on chronic diastolic (congestive) heart failure; I11.0 Hypertensive heart disease with heart failure; F17.210 Nicotine dependence, cigarettes, uncomplicated; K21.9 Gastro-esophageal reflux disease without esophagitis; J45.909 Unspecified asthma, uncomplicated; E87.6 Hypokalemia; E78.00 Pure hypercholesterolemia, unspecified; T46.5X6A Underdosing of other antihypertensive drugs, initial encounter; Z91.128 Patient's intentional underdosing of medication regimen for other reason; G44.209 Tension-type headache, unspecified, not intractable; Z86.718 Personal history of other venous thrombosis and embolism
CPT/HCPCS: 36415; 70450; 71046; 71275; 80048; 80061; 81025; 82962; 83036; 83735; 83880; 84443; 84484; 85025; 85610; 85730; 93005; 93306; 93454; 99152; 99153; 99284; J7030; Q9967; A4216; C1769; C1894; J1940; J2405

== ENCOUNTER 2022-06-20 13:55 | Emergency (ER) | payer OTHER, SELFPAY ==
[2022-06-20 13:56] VITALS: BP 163/102; PULSE 81; RESP 14; TEMP 36.6; O2SAT 98; BMI 26.3
--- NOTE | 2022-06-20 14:25 | RAD_ITS ---
STUDY: X-RAY - RIGHT KNEE REASON FOR EXAM: Female, 46 years old. Knee pain and swelling. No known injury. TECHNIQUE: 4 view(s) of the knee. COMPARISON: None. FINDINGS: Normal visualized distal femur. Normal visualized proximal tibia and fibula. Normal proximal tibiofibular articulation. 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 Normal medial femorotibial compartment. Normal lateral femorotibial compartment. Normal patellofemoral articulation. Small joint effusion. RAD/Knee 4 or More Views IMPRESSION: Small joint effusion. Bipartite patella. Electronically Signed: Dalton Sen MD at 14:40 EST ,
[2022-06-20 14:58] LABS: International Normalized Ratio 1.4; Prothrombin Time (Protime)PT. 17.1 SECONDS (11.7-14.9)
--- NOTE | 2022-06-20 15:02 | EDS_ITS ---
HPI History of Present Illness Chief Complaint: Lower Extremity Injury Informant: patient Onset/Context/Timing Onset: Days (2-3) Context: Gradual Onset Timing: Continuous Quality of Pain: Aching Location: Right knee Current Severity: Moderate Maximum Severity: Moderate Worsened by: Bending, walking Relieved by: Remaining still Associated Symptoms Associated Symptoms: Negative for Parasthesia, Weakness or Loss of Funtion Narrative Narrative: Patient has had spontaneous onset of swelling and pain in the right knee. The pain is diffuse, anterior. There is no radiation. No numbness or tingling distally. She is a history of PAD and CAD, and therefore is on aspirin, clopidogrel, warfarin. Her last INR was 2.5 this was a couple weeks ago, she is due to have a check tomorrow. She denies any known injury, but states she could have done something minor to it and does not remember. It started a couple days ago and has gotten worse. She is never had this before. No known history of gout. No fevers or chills. No redness that she has noted or other rashes. No other joints affected. [facility] Medical History High cholesterol History of left heart catheterization (LHC) (~03/21/22) Hypertension Home Medications amlodipine 10 mg tablet 10 mg PO DAILY #30 tabs 03/21/22 [Rx Last Taken Unknown] aspirin 81 mg tablet,delayed release 81 mg PO BREAKFAST #30 tabs 03/21/22 [Rx Last Taken Unknown] carvedilol 12.5 mg tablet 12.5 mg PO BIDCM #60 tabs 03/21/22 [Rx Last Taken Unknown] hydrochlorothiazide 25 mg tablet 25 mg PO DAILY #30 tabs 03/21/22 [Rx Last Taken Unknown] nitroglycerin 0.4 mg sublingual tablet 0.4 mg sublingual Q5M PRN CHEST PAIN #30 tabs 03/21/22 [Rx Last Taken Unknown] clopidogrel 75 mg tablet (Plavix) 75 mg PO DAILY 04/11/22 [History Last Taken Unknown] warfarin 2.5 mg tablet 2.5 mg PO DAILY 04/11/22 [History Last Taken Unknown] tramadol 50 mg tablet 50 mg PO Q6H PRN pain 3 days #12 tabs 06/20/22 [Rx Last Taken Unknown] Allergy/AdvReac Type Severity Reaction Status Date / Time latex Allergy Rash Verified 06/20/22 13:56 Family History (Reviewed 04/11/22 @ 16:10 by Luana Foote MATERIAL CONTROL MANAGER, MATERIAL CONTROL MANAGER-C) Other Heart disease Surgical History Hx of cholecystectomy Social History Smoking Status: Current every day smoker tobacco type: cigarettes alcohol intake: current alcohol intake frequency: a few times a month substance use type: marijuana ROS ROS ED Constitutional Constitutional ED: Denies chills or fever(s) Musculoskeletal Musculoskeletal: Reports extremity pain; Denies neck pain Integumentary Denies Abrasions, rash or wounds Neurologic Neurologic: Denies paresthesias or weakness EXAM Physical Exam Const Vital Signs: 06/20/22 13:56 Temperature 98 F Temperature Source Temporal Pulse Rate 81 Respiratory Rate 14 Blood Pressure 163/102 H Blood Pressure Mean 122 Pulse Ox 98 Oxygen Delivery Method Room Air Positive well nourished and well developed General Appearance ED: well developed and NAD Neck full ROM and supple Back/Spine normal ROM and normal to inspection Extremity Extremity Narrative: Right knee: Effusion. Tender around the area where the effusion is, but no bony tenderness. Full extension, excellent range of motion until the extreme of flexion where she is limited due to pain. All ligaments stable with short endpoints and no significant pain on stressing including ACL PCL. No erythema, the knee is not hot. All other compartments soft and nontender, nondistended. No ecchymoses or purpura seen. The left knee has no effusion. Neuro oriented x3, no focal motor deficits and no sensory deficits noted Sensorium / Orientation: alert Psych mental status grossly normal and thought process normal Skin no wounds Rashes: no rashes MDM MDM MDM Narrative Medical decision making narrative: 4 view x-ray series of the right knee are obtained, does show a bipartite patella, and a joint effusion, no bony abnormalities. Radiology in agreement. I had her INR measured it was 1.4 subtherapeutic, this makes a hemarthrosis less likely, she does not have the appearance of an obvious hemarthrosis although this is in the differential. I discussed treatment for this with the patient, it is possible she has internal knee derangement, less likely that she has gout, pseudogout, septic arthritis she is moving the knee very well with minimal discomfort until the extreme of flexion. We will give her an Rc wrap, prescription for analgesics to use as needed, I do not think she will need crutches since she walked in here without the Rc wrap, I advised rest and outpatient follow-up with orthopedics in 1 week or more for reevaluation. We will also advised that she take an extra dose of warfarin for the next day or 2 and have a follow-up INR at the end of the week. Lab Data Attestation: I reviewed the patient's lab results. Labs: Laboratory Results - last 24 hr 06/20/22 14:40 PT 17.1 H INR 1.4 Radiography Diagnostic Testing: Clinical Impression(s) from Imaging Studies Knee X-Ray 06/20/22 14:25 IMPRESSION: Small joint effusion. Bipartite patella. Electronically Signed: Dalton Sen MD at 14:40 EST Reading Location ID and State: [facility] / [place] , Service support , Discharge Plan Triage Chief Complaint: Lower Extremity Injury ED Provider: Azael Vergara Dx/Rx/DC Orders Clinical Impression: Effusion of right knee, Subtherapeutic international normalized ratio (INR) Instructions: ED Knee Effusion Prescriptions: New tramadol 50 mg tablet 50 mg PO Q6H PRN (Reason: pain) 3 Days Qty: 12 0RF No Action clopidogrel [Plavix] 75 mg tablet 75 mg PO DAILY warfarin 2.5 mg tablet 2.5 mg PO DAILY Rx Instructions: on odd numbered days carvedilol 12.5 mg Tablet 12.5 mg PO BIDCM Qty: 60 2RF aspirin 81 mg Tablet,Delayed Release (Dr/Ec) 81 mg PO BREAKFAST Qty: 30 2RF amlodipine 10 mg Tablet 10 mg PO DAILY Qty: 30 2RF nitroglycerin 0.4 mg Tablet, Sublingual 0.4 mg sublingual Q5M PRN (Reason: CHEST PAIN) Qty: 30 0RF hydrochlorothiazide 25 mg Tablet 25 mg PO DAILY Qty: 30 1RF Primary Care Provider: Tracy Lee NP Referrals: Roberto Carlos Jeff MD [Med Staff - Active Staff] - 1-2 Weeks Tracy Lee MATERIAL CONTROL MANAGER, MATERIAL CONTROL MANAGER-C [Primary Care Provider] - Activity Restrictions/Additional Instructions: He did not have to have your INR rechecked tomorrow, but the end of the week would be a good idea. Double your warfarin dose for the next 2 doses. Ice packs as needed to the right knee, rest it, limit bending as much as you are able using the Rc wrap. Disposition Disposition: Home, Self Care
[2022-06-20 15:18] VITALS: BP 130/88; PULSE 62; RESP 15; O2SAT 97
[2022-06-20] MEDS: traMADol 50 MG Tablet PO (15:20)
== END 2022-06-20 15:21 | disposition home or self-care (01) ==
PROVIDERS: Emergency Provider Emergency Medicine; PCP Nurse Practitioner Primary Care; Visit Provider Emergency Medicine
DX: M25.461 Effusion, right knee (principal); I73.9 Peripheral vascular disease, unspecified; R79.1 Abnormal coagulation profile; M25.561 Pain in right knee; I25.10 Atherosclerotic heart disease of native coronary artery without angina pectoris; E78.00 Pure hypercholesterolemia, unspecified; I10 Essential (primary) hypertension; F17.210 Nicotine dependence, cigarettes, uncomplicated; Z79.02 Long term (current) use of antithrombotics/antiplatelets; Z79.82 Long term (current) use of aspirin; Z79.01 Long term (current) use of anticoagulants; Z79.899 Other long term (current) drug therapy
CPT/HCPCS: 73564; 85610; 99283

== ENCOUNTER 2023-05-29 16:45 | Emergency (ER) | payer OTHER, SELFPAY ==
[2023-05-29 16:46] VITALS: BP 164/85; PULSE 78; RESP 18; TEMP 35.9; O2SAT 99; BMI 26.4
--- NOTE | 2023-05-29 17:50 | CT_ITS ---
STUDY: CT BRAIN WITHOUT CONTRAST REASON FOR EXAM: Female, 47 years old. head trauma RADIATION DOSAGE (If Supplied By Facility): CTDIvol = ( 44.99 ) mGy, DLP = ( 745.49 ) mGycm TECHNIQUE: Transaxial CT imaging of the brain was performed without administration of intravenous contrast material. Individualized dose optimization techniques were used for this CT. COMPARISON: 03/20/2022. FINDINGS: Normal soft tissue structures. Normal calvarium. Normal size ventricles and extra-axial spaces for the patient''s age. Normal white matter tracts of the cerebral hemispheres. Normal basal ganglia and thalami. Normal brainstem. Normal cerebellum. There is no intracranial hemorrhage. There are no findings of an acute ischemic infarction. Normal visualized paranasal sinuses. CT/Brain/Head without Contrast IMPRESSION: Normal unenhanced CT scan of the brain. Electronically Signed: Dara Martinez MD at 18:34 EST ,
--- NOTE | 2023-05-29 17:50 | CT_ITS ---
STUDY: CT FACIAL BONES WITHOUT CONTRAST REASON FOR EXAM: Female, 47 years old. trauma RADIATION DOSAGE (If Supplied By Facility): CTDIvol = ( 29.38 ) mGy, DLP = ( 518.07 ) mGycm TECHNIQUE: The patient was scanned in a multi detector CT scanner. Sagittal and coronal images were reconstructed. Individualized dose optimization techniques were used for this CT. COMPARISON: None. FINDINGS: Normal soft tissue structures. Normal orbital mccollum and orbital contents. Normal nasal bones and anterior nasal spine. Normal facial bones. There is no demonstrated fracture. Normal visualized paranasal sinuses. Nonspecific lucencies surrounding the roots of the bilateral posterior lower teeth, etiology indeterminate. CT/Sinus/Facial Bone IMPRESSION: No evidence of facial bone fracture seen. Lucencies surrounding the roots of the bilateral posterior lower teeth, follow-up with dental consultation recommended in nonacute setting. Electronically Signed: Dara Martinez MD at 19:04 EST ,
--- NOTE | 2023-05-29 17:50 | CT_ITS ---
STUDY: CT CERVICAL SPINE WITHOUT CONTRAST REASON FOR EXAM: Female, 47 years old. neck pain RADIATION DOSAGE (If Supplied By Facility): CTDIvol = ( 25.63 ) mGy, DLP = ( 488.01 ) mGycm TECHNIQUE: High resolution transaxial imaging was performed without contrast material. Sagittal and coronal images were reconstructed. Individualized dose optimization techniques were used for this CT. COMPARISON: None FINDINGS: Normal craniovertebral junction. There are mild degenerative changes of the anterior atlantoaxial articulation. Normal odontoid process. Normal cervical lordosis. Mild narrowing of disc height at C5-C6. Otherwise normal vertebral bodies and posterior osseous elements. C2-3: Normal endplates. Normal disc height and morphology. Normal central canal and intervertebral neuroforamina. C3-4: Normal endplates. Normal disc height and morphology. Normal central canal and intervertebral neuroforamina. C4-5: Normal endplates. Normal disc height and morphology. Normal central canal and intervertebral neuroforamina. C5-6: Mild spondylosis. Mild narrowing of disc height. Normal central canal and intervertebral neuroforamina. C6-7: Normal endplates. Normal disc height and morphology. Normal central canal and intervertebral neuroforamina. C7-T1: Normal endplates. Normal disc height and morphology. Normal central canal and intervertebral neuroforamina. Normal visualized soft tissue structures. CT/Spine Cervical without Contras IMPRESSION: Mild spondylosis at C5-C6, otherwise normal CT of the cervical spine with no acute fracture or subluxation. Electronically Signed: Dara Martinez MD at 19:06 EST ,
--- NOTE | 2023-05-29 18:06 | EDS_ITS ---
HPI <SHANON Biggs - Last Filed: 05/29/23 19:33> History of Present Illness Chief Complaint: Headache Narrative Narrative: And is a 47-year-old female who is currently on Coumadin, Plavix for history of blood clot, CT. Presenting to the emergency department after sustaining a left- sided facial injury. Patient states she was reaching above her head, and a metal pot came and struck the patient in the left side of her face. She denies any LOC however states she was dazed. She continues to have pain to the area, she does have some bruising below her left eye. She states she got nauseous, slightly dizzy, and is here for evaluation. Patient denies any other symptoms PFSH <SHANON Biggs - Last Filed: 05/29/23 19:33> [facility] Medical History (Updated 05/29/23 @ 19:33 by SHANON Biggs) High cholesterol History of left heart catheterization (LHC) (~03/21/22) History of CT (myocardial infarction) Hypertension Home Medications amlodipine 10 mg tablet 10 mg PO DAILY #30 tabs 03/21/22 [Rx Last Taken Unknown] aspirin 81 mg tablet,delayed release 81 mg PO BREAKFAST #30 tabs 03/21/22 [Rx Last Taken Unknown] carvedilol 12.5 mg tablet 12.5 mg PO BIDCM #60 tabs 03/21/22 [Rx Last Taken Unknown] hydrochlorothiazide 25 mg tablet 25 mg PO DAILY #30 tabs 03/21/22 [Rx Last Taken Unknown] nitroglycerin 0.4 mg sublingual tablet 0.4 mg sublingual Q5M PRN CHEST PAIN #30 tabs 03/21/22 [Rx Last Taken Unknown] clopidogrel 75 mg tablet (Plavix) 75 mg PO DAILY 04/11/22 [History Last Taken Unknown] warfarin 2.5 mg tablet 2.5 mg PO DAILY 04/11/22 [History Last Taken Unknown] tramadol 50 mg tablet 50 mg PO Q6H PRN pain 3 days #12 tabs 06/20/22 [Rx Last Taken Unknown] Allergy/AdvReac Type Severity Reaction Status Date / Time latex Allergy Rash Verified 05/29/23 16:45 Family History Other Heart disease Surgical History Hx of cholecystectomy Social History Smoking Status: Current every day smoker tobacco type: cigarettes alcohol intake: current alcohol intake frequency: a few times a month substance use type: marijuana ROS <SHANON Biggs - Last Filed: 05/29/23 19:33> ROS ED ROS Narrative Constitutional: Negative for fever, chills, weight loss, weakness Eyes: Negative for vision loss, vision change, double vision. Positive for left eye pain ENT: Negative for any sore throat, ear pain, congestion Cardiovascular: Negative for any chest pain, tightness, palpitations Respiratory: Negative for any cough, sputum production, hemoptysis, dyspnea, dyspnea on exertion, orthopnea Gastrointestinal: Negative for any abdominal pain, nausea, vomiting, diarrhea, constipation, blood in stool, blood in vomit : Negative for any urinary frequency, dysuria, retention, blood in urine Muscle skeletal: Negative for any myalgias, arthralgias, neck pain, back pain Neurological: Negative for any syncope, paresthesias, dizziness. For headache Skin: Negative for any rashes, lumps, itching, abrasions, lacerations Psychiatric: Negative for any depression, anxiety, stress, suicidal ideation, homicidal ideation Hematologic: Negative for any easy bruising, excessive bruising, easy bleeding Allergies: Negative for any eczema, hives, rash EXAM <SHANON Biggs - Last Filed: 05/29/23 19:33> Physical Exam Narrative Exam Narrative: Vital signs reviewed. HEET: Head normocephalic atraumatic, TMs clear bilaterally. Posterior pharynx is clear, moist mucous membranes. Nares clear bilaterally. Pupils are equal round reactive to light, negative for any hemotympanum, negative for any septal hematoma. Patient does have some ecchymosis, edema just below the left eye. No significant tenderness to the orbit. Neck: Supple with no lymphadenopathy have some midline spinal cervical tenderness.. No signs of meningismus. Cardiac: Regular rate and rhythm no murmurs gallops or rubs, equal peripheral pulses bilaterally. Respiratory: Lungs clear to auscultation bilaterally. No chest tenderness. Abdomen: Soft, nontender, nondistended. No abdominal bruit or pulsatile masses. No hepatosplenomegaly Extremities: No peripheral edema, no signs of gross trauma or deformity. Active full range of motion of all extremities. Neuro: Cranial nerves II through XII intact, no focal neurological deficits. Skin: Clean dry and intact with no rash, purpura, petechiae, vesicles or pustules. Backs/flank: No CVA tenderness, no midline spinal tenderness, no deformity. Psych: Normal mood and affect. No SI, HI or acute psychosis. Const Vital Signs: 05/29/23 16:46 Temperature 96.7 F L Temperature Source Temporal Pulse Rate 78 Respiratory Rate 18 Blood Pressure 164/85 H Blood Pressure Mean 111 Pulse Ox 99 Oxygen Delivery Method Room Air Positive well nourished and well developed General Appearance ED: well developed <Dr. Beka Meeks DO - Last Filed: 05/29/23 19:38> Physical Exam Const Vital Signs: 05/29/23 16:46 Temperature 96.7 F L Temperature Source Temporal Pulse Rate 78 Respiratory Rate 18 Blood Pressure 164/85 H Blood Pressure Mean 111 Pulse Ox 99 Oxygen Delivery Method Room Air MDM <SHANON Biggs - Last Filed: 05/29/23 19:33> MDM Radiography Diagnostic Testing: Clinical Impression(s) from Imaging Studies Brain CT 05/29/23 17:50 IMPRESSION: Normal unenhanced CT scan of the brain. Electronically Signed: Dara Martinez MD at 18:34 EST , Cervical Spine CT 05/29/23 17:50 IMPRESSION: Mild spondylosis at C5-C6, otherwise normal CT of the cervical spine with no acute fracture or subluxation. Electronically Signed: Dara Martinez MD at 19:06 EST , Facial/Sinus 05/29/23 17:50 IMPRESSION: No evidence of facial bone fracture seen. Lucencies surrounding the roots of the bilateral posterior lower teeth, follow-up with dental consultation recommended in nonacute setting. Electronically Signed: Dara Martinez MD at 19:04 EST , Treatment and Re-Evaluation :: Patient appears generally well, patient appears nontoxic, vital signs are stable. Presenting to the emerged part with complaints of facial pain, headache, neck pain. Differential diagnosis includes facial fracture, concussion, closed head injury, intracranial bleeding, skull fracture. Patient received a CT scan of the brain, cervical spine as well as the maxillofacial bones. Patient is at high risk secondary to being on the Coumadin and Plavix. Patient's brain CT shows a normal unenhanced CT scan of the brain, CT scan of the cervical spine showed no acute fracture or subluxation. CT scan of the facial and sinus shows no evidence of facial bone fracture seen. At this time, patient be stable for discharge. She instructed return for any worsening symptoms. <Dr. Beka Meeks, DO - Last Filed: 05/29/23 19:38> [facility] Narrative Medical decision making narrative: Patient appears generally well, patient appears nontoxic, vital signs are stable. Presenting to the emerged part with complaints of facial pain, headache, neck pain. Differential diagnosis includes facial fracture, concussion, closed head injury, intracranial bleeding, skull fracture. Patient received a CT scan of the brain, cervical spine as well as the maxillofacial bones. Patient is at high risk secondary to being on the Coumadin and Plavix. Patient's brain CT shows a normal unenhanced CT scan of the brain, CT scan of the cervical spine showed no acute fracture or subluxation. CT scan of the facial and sinus shows no evidence of facial bone fracture seen. At this time, patient be stable for discharge. She instructed return for any worsening symptoms. Patient presenting with headache after hitting hit in the head with the shafer. She initially had some left-sided neck pain but this is now resolved. CT brain, cervical spine, facial bones all negative. Patient offered Tylenol but she declines. She states at this point she just wants to go home. Return precautions were discussed. Radiography Diagnostic Testing: Clinical Impression(s) from Imaging Studies Brain CT 05/29/23 17:50 IMPRESSION: Normal unenhanced CT scan of the brain. Electronically Signed: Dara Martinez MD at 18:34 EST Reading Location ID and State: [id number] / [place] , Service support , Cervical Spine CT 05/29/23 17:50 IMPRESSION: Mild spondylosis at C5-C6, otherwise normal CT of the cervical spine with no acute fracture or subluxation. Electronically Signed: Dara Martinez MD at 19:06 EST , Facial/Sinus 05/29/23 17:50 IMPRESSION: No evidence of facial bone fracture seen. Lucencies surrounding the roots of the bilateral posterior lower teeth, follow-up with dental consultation recommended in nonacute setting. Electronically Signed: Dara Martinez MD at 19:04 EST Reading Location ID and State: [employer] / [place] , Service support , Discharge Plan Triage Chief Complaint: Headache ED Midlevel Provider: Servando Lemus ED Provider: Beka Meeks Dx/Rx/DC Orders Clinical Impression: Concussion, Contusion, Head injury Instructions: Bruises (Contusions), Concussion Dc Prescriptions: No Action clopidogrel [Plavix] 75 mg tablet 75 mg PO DAILY warfarin 2.5 mg tablet 2.5 mg PO DAILY Rx Instructions: on odd numbered days carvedilol 12.5 mg Tablet 12.5 mg PO BIDCM Qty: 60 2RF aspirin 81 mg Tablet,Delayed Release (Dr/Ec) 81 mg PO BREAKFAST Qty: 30 2RF amlodipine 10 mg Tablet 10 mg PO DAILY Qty: 30 2RF nitroglycerin 0.4 mg Tablet, Sublingual 0.4 mg sublingual Q5M PRN (Reason: CHEST PAIN) Qty: 30 0RF hydrochlorothiazide 25 mg Tablet 25 mg PO DAILY Qty: 30 1RF tramadol 50 mg tablet 50 mg PO Q6H PRN (Reason: pain) 3 Days Qty: 12 0RF Primary Care Provider: Tracy Lee NP Referrals: Tracy Lee NP, [facility] [Primary Care Provider] - Activity Restrictions/Additional Instructions: Continue to take her medications daily. Return for any worsening symptoms. Disposition Disposition: Home, Self Care
--- OUTSIDE RECORDS SUMMARY | 2023-05-29 18:38 | XMS RPT_ITS | CCD ---
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 Role Phone SALVATORE MARY Primary Care Physicia n SALVATORE MARY Attending Unava ilable SALVATORE MARY Primary Care Unava ilable Allergies Allergy Classification Reported Allergen(s) Allergy Type Date of Onset Reaction(s) Facility (4 sources) Latex Allergy to substance rash [facility] (4 sources) rubber-neoprene Allergy to substance swelling [facility] Medications Current Medications Medication Drug Class(es) Dates Sig (Normalized) Sig (Original) 8 hr acetaminophen 650 mg extended release oral tablet (4 sources) Start: 09-24-19 Tylenol 8 Hour 650 mg oral tablet, extended release Dose : 1,300 mg = 2 tab(s), Oral, q8h, PRN as needed for fever, # 24 tab(s), 0 Refill(s) Start Date: 09/24/19 Status: Ordered amLODIPine 10 mg oral tablet (4 sources) Dihydropyridine Calcium Channel Sammy Start: 03-29-20 amLODIPine 10 mg oral tablet Dose : 10 mg = 1 tab(s), Oral, qDay, 0 Refill(s) Start Date: 03/29/22 Status: Ordered aspirin 81 mg oral tablet (4 sources) Platelet Aggregation Inhibitor, Nonsteroidal Anti-inflammatory Drug Start: 02-02-20 aspirin 81 mg oral tablet (chewable) Dose : 81 mg = 1 tab(s), Oral, Daily, 0 Refill(s) Start Date: 02/01/18 Status: Ordered atorvastatin 40 mg oral tablet (2 sources) HMG-CoA Reductase Inhibitor Start: 03-29-20 atorvastatin 40 mg oral tablet Dose : 40 mg = 1 tab(s), Oral, qDay, 0 Refill(s) Start Date: 03/29/22 Status: Ordered carvedilol 12.5 mg oral tablet (4 sources) alpha-Adrenergic Sammy, beta-Adrenergic Sammy Start: 03-29-20 carvedilol 12.5 mg oral tablet Dose : 12.5 mg = 1 tab(s), Oral, BID, 0 Refill(s) Start Date: 03/29/22 Status: Ordered clopidogrel 75 mg oral tablet (2 sources) P2Y12 Platelet Inhibitor Start: 04-09-20 Plavix 75 mg oral tablet Dose : 75 mg = 1 tab(s), Oral, qDay, # 30 tab(s), 0 Refill(s), Pharmacy: [id number], PAD (peripheral artery disease) Thrombosis/embolism, arterial, 157.5, cm, 04/07/22 17:14:00 EST, Height Start Date: 04/09/22 Status: Ordered cyclobenzaprine hydrochloride 10 mg oral tablet (2 sources) Muscle Relaxant Start: 03-30-20 cyclobenzaprine 10 mg oral tablet Dose : 10 mg = 1 tab(s), Oral, TID, PRN for muscle spasm, # 10 tab(s), 0 Refill(s), Pharmacy: [facility], 160, cm, 03/30/22 10:50:00 EST, Height Start Date: 03/30/22 Status: Ordered hydroCHLOROthiazide 25 mg oral tablet (4 sources) Thiazide Diuretic Start: 03-29-20 hydroCHLOROthiazide 25 mg oral tablet Dose : 25 mg = 1 tab(s), Oral, qDay, 0 Refill(s) Start Date: 03/29/22 Status: Ordered lisinopril 20 mg oral tablet (4 sources) Angiotensin Converting Enzyme Inhibitor Start: 03-29-20 lisinopril 20 mg oral tablet Dose : 20 mg = 1 tab(s), Oral, BID, 0 Refill(s) Start Date: 03/29/22 Status: Ordered nitroglycerin 0.4 mg sublingual tablet (4 sources) Nitrate Vasodilator Start: 03-29-20 nitroglycerin 0.4 mg sublingual tablet DISSOLVE 1 TABLET UNDER THE TONGUE NEEDED FOR CHEST PAIN- MAY REPEAT EVERY 5 MINUTES IF NEEDED ( MAX 3 DOSES.- IF NO RELIEF CALL 911) Start Date: 03/29/22 Status: Ordered traMADol hydrochloride 50 mg oral tablet (1 source) Opioid Agonist Start: 03-31-20 End: 04-07-20 traMADol 50 mg oral tablet Dose : 50 mg = 1 tab(s), Oral, q6hr, PRN for pain, X 7 day(s), # 28 tab(s), 0 Refill(s), 04/07/22 14:16:00 EST, Pharmacy: [id number], Arterial ischemia, 160, cm, 03/30/22 10:50:00 EST, Height, 63.4 Start Date: 03/31/22 Stop Date: 04/07/22 Status: Ordered warfarin sodium 2.5 mg oral tablet (2 sources) Vitamin K Antagonist Start: 04-09-20 take 1 tablet by mouth once daily Coumadin use warfarin Dose : 2.5 mg =, Oral, qDay, # 30 tab(s), 0 Refill(s), 157.5, cm, 04/07/22 17:14:00 EST, Height Start Date: 04/09/22 Status: Ordered Completed/Discontinued Medications Medication Drug Class(es) Dates Sig (Normalized) Sig (Original) 0.6 ml enoxaparin sodium 100 mg/ml prefilled syringe (2 sources) Low Molecular Weight Heparin Start: 04-09-2022 End: 04-16-2022 inject 0.5 mL by subcutaneous injection every twelve hours Lovenox 60 mg/0.6 mL injectable solution Dose : 50 mg = 0.5 mL, Subcutaneous, q12h, X 7 day(s), # 8.4 mL, 0 Refill(s), 04/16/22 11:07:00 EST, Pharmacy: [id number], 157.5, cm, 04/07/22 17:14:00 EST, Height Start Date: 04/09/22 Stop Date: 04/16/22 Status: Ordered Problems Problem Classification Problem Date Documented Date Episodic/Chronic Acute myocardial infarction (2 sources) Myocardial infarction 03-29-2022 Chronic Aortic and peripheral arterial embolism or thrombosis (1 source) Arterial embolus and thrombosis; Translations: [Embolism and thrombosis of unspecified artery] Onset: 04-08-2022 Chronic Essential hypertension (2 sources) Hypertensive disorder 01-31-2018 Chronic Other circulatory disease (1 source) Disorder of cardiovascular system; Translations: [Other disorder of circulatory system] Episodic Other connective tissue disease (2 sources) Pain in lower limb 03-29-2022 Episodic Other nervous system disorders (4 sources) Paresthesia of right upper limb 10-15-2020 Episodic Peripheral and visceral atherosclerosis (8 sources) Arteriosclerotic vascular disease; Translations: [Peripheral vascular disease] Onset: 04-08-2022 02-01-2018 Chronic Results Test Name Value Interpretation Reference Range Facil ity Vital Signs Date Time Vital Sign Value Performing Clinician Faci lity 04-09-2022 15:12-0500 Body temperature 97.88 [degF] ALANA HARO MD [address] [place] [address] 04-09-2022 15:12-0500 Diastolic Blood Pressure Non-Invasive 67 1 ALANA HARO MD [address] [place] [address] 04-09-2022 15:12-0500 Heart rate 88 /min ALANA HARO MD [address] [place] [address] 04-09-2022 15:12-0500 Respiratory rate 18 /min ALANA HARO MD [address] [place] [address] 04-09-2022 15:12-0500 Signs/Symptoms Transfusion Reaction ALANA HARO MD [facility] 04-09-2022 15:12-0500 Systolic Blood Pressure Non-Invasive 102 1 ALANA HARO MD [facility] 04-09-2022 06:40-0500 Body temperature 97.88 [degF] ALANA HARO MD [facility] 04-09-2022 06:40-0500 Diastolic Blood Pressure Non-Invasive 67 1 ALANA HARO MD [facility] 04-09-2022 06:40-0500 Heart rate 83 /min ALANA HARO MD [facility] 04-09-2022 06:40-0500 Reason For Taking VItal Signs ALANA HARO MD [facility] 04-09-2022 06:40-0500 Respiratory rate 18 /min ALANA HARO MD [facility] 04-09-2022 06:40-0500 Systolic Blood Pressure Non-Invasive 102 1 ALANA HARO MD [address] [place] [address] 04-08-2022 21:45-0500 Body temperature 97.7 [degF] ALANA HARO MD [address] [place] [address] 04-08-2022 21:45-0500 Diastolic Blood Pressure Non-Invasive 78 1 ALANA HARO MD [address] [place] [address] 04-08-2022 21:45-0500 Heart rate 89 /min ALANA HARO MD [address] [place] [address] 04-08-2022 21:45-0500 Respiratory rate 19 /min ALANA HARO MD [address] [place] [address] 04-08-2022 21:45-0500 Systolic Blood Pressure Non-Invasive 124 1 ALANA HARO MD [address] [place] [address] 04-08-2022 19:00-0500 Heart rate 87 /min ALANA HARO MD [facility] 04-08-2022 19:00-0500 Mean blood pressure 96 mm[Hg] ALANA HARO MD [address] [place] [address] 04-08-2022 18:30-0500 Heart rate 92 /min ALANA HARO MD [address] [place] [address] 04-08-2022 18:30-0500 Mean blood pressure 88 mm[Hg] ALANA HARO MD [address] [place] [address] 04-08-2022 18:00-0500 Mean blood pressure 89 mm[Hg] ALANA HARO MD [address] [place] [address] 04-08-2022 17:30-0500 Reason For Taking VItal Signs ALANA HARO MD [facility] 04-08-2022 06:31-0500 Heart rate 65 /min ALANA HARO MD [facility] 04-07-2022 17:14-0500 Body height 157.5 cm ALANA HARO MD [facility] 04-07-2022 17:14-0500 Body weight 63.6 kg ALANA HARO MD [facility] 04-07-2022 17:14-0500 Body weight 25.64 kg/m2 ALANA HARO MD [address] [place] [address] 04-07-2022 16:28-0500 Body height 157.5 cm ALANA HARO MD [address] [place] [address] 04-07-2022 16:28-0500 Body weight 63.6 kg ALANA HARO MD [facility] 04-07-2022 16:28-0500 Body weight 25.64 kg/m2 ALANA HARO MD [facility] 04-06-2022 18:14-0500 Diastolic Blood Pressure Non-Invasive 72 1 FLOR MOLINA MD [facility] 04-06-2022 18:14-0500 Heart rate 76 /min FLOR MOLINA MD [facility] 04-06-2022 18:14-0500 Respiratory rate 18 /min FLOR MOLINA MD [facility] 04-06-2022 18:14-0500 Systolic Blood Pressure Non-Invasive 111 1 FLOR MOLINA MD [facility] 04-06-2022 12:00-0500 Body temperature 97.52 [degF] FLOR MOLINA MD [facility] 04-06-2022 12:00-0500 Body weight 65 kg FLOR MOLINA MD [facility] 04-06-2022 12:00-0500 Diastolic Blood Pressure Non-Invasive 70 1 FLOR MOLINA MD [facility] 04-06-2022 12:00-0500 Heart rate 84 /min FLOR MOLINA MD [facility] 04-06-2022 12:00-0500 Respiratory rate 20 /min FLOR MOLINA MD [facility] 04-06-2022 12:00-0500 Systolic Blood Pressure Non-Invasive 103 1 FLOR MOLINA MD [facility] Encounters Encounter Date Encounter Type Care Provider Facility Start: 05-09-2023 ambulatory SALVATORE Howard JAQUELIN ER ORTHOPEDIC SPECIALIST-FILM HISTORIAN Facility:B Start: 04-13-2022 End: 04-13-2022 Patient encounter procedure ALANA HARO MD [facility] Start: 04-07-2022 End: 04-09-2022 Evaluation and management of inpatient ALANA HARO MD [facility] Start: 04-06-2022 End: 04-06-2022 Emergency department patient visit FLOR MOLINA MD [facility] Start: 03-30-2022 End: 03-30-2022 Patient encounter procedure SALVATORE Howard MELO ORTHOPEDIC SPECIALIST-FILM HISTORIAN [facility] Procedures Date Procedure Procedure Detail Performing Clinician Cholecystectomy SALVATORE WEBSTEREdward RUIZ ORTHOPEDIC SPECIALIST-FILM HISTORIAN Immunizations Immunization Date Immunization Notes Care Provider Fa cili 02-24-2021 SARS-CoV-2 mRNA (tozinameran) vaccine SALVATORE ALEJO ORTHOPEDIC SPECIALIST-FILM HISTORIAN [facility] 02-03-2021 SARS-CoV-2 mRNA (tozinameran) vaccine SALVATORE ALEJO ORTHOPEDIC SPECIALIST-FILM HISTORIAN [facility] Payers Date Payer Category Payer Unknown [id number] 1975 Unknown [id number] Social History Date Type Detail Facility Start: 09-20-2018 Tobacco smoking status Heavy t obacco smoker (finding) [facility] Sex Assigned At Female [facility] Functional Status Date Assessment Result Facility 04-09-2022 Functional Status Room check performed [facility] 04-08-2022 Functional Status [facility] 04-08-2022 Functional Status [facility] 04-08-2022 Functional Status Patient Identi fied Identification band, Verbal [facility] 04-08-2022 Functional Status Maintained [facility] 04-08-2022 Functional Status Done [facility] 04-08-2022 Functional Status Linen Change Done [facility] 04-07-2022 Functional Status [facility] 04-07-2022 Functional Status [facility] Mental Status Date Assessment Result [facility] 04-09-2022 Mental Status Oriented x 4 [facility] 04-08-2022 Mental Status [facility] Clinical Notes 04-07-2022 to 04-09-2022 Note Date & Type Note Facility 04-09-2022 Hospital Discharge instructions Patient Education 04/09/2022 14:09:41 Angiogram Angiogram An angiogram is a procedure used to examine the blood vessels. In this procedure, contrast dye is injected through a long, thin tube (catheter) into an artery. X-rays are then taken, which show if there is a blockage or problem in a blood vessel. The catheter may be inserted in: Your groin area. This is the most common. The fold of your arm, near your elbow. Your wrist. Tell a health care provider about: Any allergies you have, including allergies to shellfish or contrast dye. All medicines you are taking, including vitamins, herbs, eye drops, creams, and [id number] medicines. Any problems you or family members have had with anesthetic medicines. Any blood disorders you have. Any surgeries you have had. Any previous kidney problems or failure you have had. Any medical conditions you have. Whether you are or may be . Whether you are . What are the risks? Generally, this is a safe procedure. However, problems may occur, including: Infection or bruising at the catheter area. Damage to other structures or organs, including rupture of blood vessels or damage to arteries. Allergic reaction to the contrast dye used. Kidney damage from the contrast dye used. Blood clots that can lead to a stroke or heart attack. What happens before the procedure? Staying hydrated Follow instructions from your health care provider about hydration, which may include: Up to 2 hours before the procedure you may continue to drink clear liquids, such as water, clear fruit juice, black coffee, and plain tea. Eating and drinking restrictions Follow instructions from your health care provider about eating and drinking, which may include: 8 hours before the procedure stop eating heavy meals or foods such as meat, fried foods, or fatty foods. 6 hours before the procedure stop eating light meals or foods, such as toast or cereal. 6 hours before the procedure stop drinking milk or drinks that contain milk. 2 hours before the procedure stop drinking clear liquids. General instructions Ask your health care provider about: ?Changing or stopping your normal medicines. This is important if you take diabetes medicines or blood thinners. ?Taking medicines such as aspirin and ibuprofen. These medicines can thin your blood. Do not take these medicines before your procedure if your doctor tells you not to. You may have blood samples taken. Plan to have someone take you home from the hospital or clinic. If you will be going home right after the procedure, plan to have someone with you for 24 hours. What happens during the procedure? To reduce your risk of infection: ?Your health care team will wash or sanitize their hands. ?Your skin will be washed with soap. ?Hair may be removed from the insertion area. You will lie on your back on an X-ray table. You may be strapped to the table if it is tilted. An IV tube will be inserted into one of your veins. Electrodes may be placed on your chest to monitor your heart rate during the procedure. You will be given one or more of the following: ?A medicine to help you relax (sedative). ?A medicine to numb the area where the catheter will be inserted (local anesthetic). The catheter will be inserted into an artery using a guide wire. A type of X-ray (fluoroscopy) will be used to help guide the catheter to the blood vessel to be examined. A contrast dye will then be injected into the catheter, and X-rays will be taken. The contrast will help to show where any narrowing or blockages are located in the blood vessels. You may feel flushed as the contrast dye is injected. After the X-ray is complete, the catheter will be removed. A bandage (dressing) will be placed over the site where the catheter was inserted. Pressure will be applied to help stop any bleeding. The procedure may vary among health care providers and hospitals. What happens after the procedure? Your blood pressure, heart rate, breathing rate, and blood oxygen level will be monitored until the medicines you were given have worn off. You will be kept in bed lying flat for several hours. If the catheter was inserted through your leg, you will be instructed not to bend or cross your legs. The insertion area and the pulse in your feet or wrist will be checked frequently. You will be instructed to drink plenty of fluids. This will help wash the contrast dye out of your body. Additional blood tests and X-rays may be done. Tests to check the electrical activity in your heart (electrocardiogram) may be done. Do not drive for 24 hours if you received a sedative. It is up to you to get the results of your procedure. Ask your health care provider, or the department that is doing the procedure, when your results will be ready. Summary An angiogram is a procedure used to examine the blood vessels. In this procedure, contrast dye is injected through a long, thin tube (catheter) into an artery. X-rays are then taken. Before the procedure, follow your health care provider's instructions about eating and drinking restrictions. You may be asked to stop eating and drinking several hours before the procedure. After the procedure, you will need to lie flat for several hours and drink plenty of fluids. This information is not intended to replace advice given to you by your health care provider. Make sure you discuss any questions you have with your health care provider. Document Released: 02/15/2006 Document Revised: 04/20/2018 Document Reviewed: 06/14/2017 [employer] Patient Education 2020 [employer] Follow Up Care 04/07/2022 16:15:00 With:ARMEN VALENTINE MD, [facility], Surgery, Vascular Surgeons Address: [facility] [address] [address] When:05/07/2022 With:SALVATORE ALEJO Address: [address] [place] [phone] When:1-2 days [facility] 04-09-2022 Note Discharge Instructions Thank you for allowing [facility] to assist you with your healthcare needs. The following is important discharge information regarding your hospital visit. Your Care Team SALVATORE ALEJO Your Diagnosis PAD (peripheral artery disease) Thrombosis/embolism, arterial What to do next Follow Up Appointments Follow Up with ARMEN VALENTINE MD, [facility], Surgery, Vascular Surgeons When In 4 weeks 05/07/2022 EST Where: [facility] [address] [address] Follow Up with SALVATORE ALEJO When Within 1-2 days Where: [address] [place] [phone] The Following Activity and Diet Have Been Ordered for You Discharge Activity - Ordered -- Resume your pre-hospitalization activity, 04/09/22 11:10:00 EST Discharge Diet - Ordered -- No changes were made to your diet during your hospital stay. Please resume your pre hospitalization diet on discharge., 04/09/22 11:10:00 EST The Following Equipment Has Been Ordered for You No qualifying data available. The Following Treatments Have Been Ordered for You Discharge Labs Discharge Outpatient Labwork - Ordered -- PT/INR, Coumadin therapy, follow-up within: 2-4 days, Results Notify to: MD ALANA HARO MD, Draw PT/INR on April 11, call with results and dosing will be decided upon that Ac may be reached at [phone], 04/09/22 11:10:00 EST Discharge Radiology No qualifying data available. Other Therapies No qualifying data available. Post Acute Orders No qualifying data available. Someone Will Contact You Regarding These Home Health Referrals No home referrals have been ordered for you. No one will call you. Allergies Latex (rash) rubber-neoprene (swelling) Medications Please ask your primary doctor or pharmacist before taking any other medication not listed, including over the counter drugs, herbal medications, vitamins and or supplements as they may interact with your home medications. What How Much When Why Instructions Last Dose New clopidogrel (Plavix 75 mg oral tablet) 1 tab(s) by mouth Once a day PAD (peripheral artery disease) Thrombosis/embolism, arterial Pickup at [facility] New enoxaparin (Lovenox 60 mg/ 0.6 mL injectable solution) 0.5 Milliliter Subcutaneous Every 12 hours Duration: 7 Days Pickup at [facility] New warfarin (Coumadin use warfarin ) 2.5 Milligram by mouth Once a day Printed Prescription Unchanged acetaminophen (Tylenol 8 Hour 650 mg oral tablet, extended release) 2 tab(s) by mouth Every 8 hours as needed for as needed for fever Unchanged amLODIPine (amLODIPine 10 mg oral tablet) 1 tab(s) by mouth Once a day Unchanged aspirin (aspirin 81 mg oral tablet (chewable)) 1 tab(s) by mouth Every day Unchanged carvedilol (carvedilol 12.5 mg oral tablet) 1 tab(s) by mouth Two (2) times a day Unchanged hydroCHLOROthiazide (hydroCHLOROthiazide 25 mg oral tablet) 1 tab(s) by mouth Once a day Unchanged lisinopril (lisinopril 20 mg oral tablet) 1 tab(s) by mouth Two (2) times a day Unchanged nitroGLYcerin (nitroglycerin 0.4 mg sublingual tablet) DISSOLVE 1 TABLET UNDER THE TONGUE NEEDED FOR CHEST PAIN- MAY REPEAT EVERY 5 MINUTES IF NEEDED ( MAX 3 DOSES.- IF NO RELIEF CALL 911) Pharmacy Information [facility]: [address] [place], [place] [id number] [phone] What How Much When Comments Stop Taking atorvastatin (atorvastatin 40 mg oral tablet) 1 tab(s) by mouth Once a day Stop Taking cyclobenzaprine (cyclobenzaprine 10 mg oral tablet) 1 tab(s) by mouth Three (3) times a day as needed for for muscle spasm Please take this list to your next doctor s visit. Bring all medications you take, including over the counter medications, herbals and other supplements with you to your doctor s visit. Patients and families are reminded to discard old lists and to update any records with all medication providers or retail pharmacies. Medication Leaflets warfarin (oral) (WAR far in) Collin Peacock What is the most important information I should know about warfarin? You should not take warfarin if you are prone to bleeding because of a medical condition, if you have an upcoming surgery, or if you need a spinal tap or epidural. Do not take warfarin if you cannot take it on time every day. Warfarin increases your risk of severe or fatal bleeding, especially if you have certain medical conditions, if you are 65 or older, or if you have had a stroke, or bleeding in your stomach or intestines. Seek emergency help if you have any bleeding that will not stop. Call your doctor at once if you have other signs of bleeding such as: swelling, pain, feeling very weak or dizzy, unusual bruising, bleeding gums, nosebleeds, heavy menstrual periods or abnormal vaginal bleeding, blood in your urine, bloody or tarry stools, coughing up blood or vomit that looks like coffee grounds. Many other drugs can increase your risk of bleeding when used with warfarin. Tell your doctor about all medicines you have recently used. Avoid making any changes in your diet without first talking to your doctor. Some foods can make warfarin less effective. What is warfarin? Warfarin is an anticoagulant (blood thinner). Warfarin reduces the formation of blood clots. Warfarin is used to treat or prevent blood clots in veins or arteries, which can reduce the risk of stroke, heart attack, or other serious conditions. Warfarin may also be used for purposes not listed in this medication guide. What should I discuss with my healthcare provider before taking warfarin? You should not take warfarin if you are allergic to it, or if: you have very high blood pressure; you recently had or will have surgery on your brain, spine, or eye; you undergo a spinal tap or spinal anesthesia (epidural); or you cannot take warfarin on time every day. You also should not take warfarin if you are are prone to bleeding because of a medical condition, such as: a blood cell disorder (such as low red blood cells or low platelets); ulcers or bleeding in your stomach, intestines, lungs, or urinary tract; an aneurysm or bleeding in the brain; or an infection of the lining of your heart. Do not take warfarin if you are , unless your doctor tells you to. Warfarin can cause defects, but preventing blood clots may outweigh any risks to the baby. If you are not , use effective control to prevent while taking warfarin and for at least 1 month after your last dose. Tell your doctor right away if you become . Warfarin can make you bleed more easily, especially if you have ever had: high blood pressure or serious heart disease; kidney disease; cancer or low blood cell counts; an accident or surgery; bleeding in your stomach or intestines; a stroke; or if you are 65 or older. To make sure warfarin is safe for you, tell your doctor if you have ever had: diabetes; congestive heart failure; liver disease, kidney disease (or if you are on dialysis); a hereditary clotting deficiency; or low blood platelets after receiving heparin. It is not known whether warfarin passes into breast milk. Watch for signs of bruising or bleeding in the baby if you take warfarin while you are breast-feeding a baby. How should I take warfarin? Follow all directions on your prescription label. Your doctor may occasionally change your dose. Do not take warfarin in larger or smaller amounts or for longer than your doctor tells you to. Take warfarin at the same time every day, with or without food. Never take a double dose. Warfarin can make it easier for you to bleed. Seek emergency help if you have any bleeding that will not stop. You will need frequent 'INR' or prothrombin time tests (to measure your blood-clotting time and determine your warfarin dose). You must remain under the care of a doctor while taking warfarin. If you receive warfarin in a hospital, call or visit your doctor 3 to 7 days after you leave the hospital. Your INR will need to be tested at that time. Do not miss any follow-up appointments. Tell your doctor if you are sick with diarrhea, fever, chills, or flu symptoms, or if your body weight changes. You may need to stop taking warfarin 5 to 7 days before having any surgery, dental work, or a medical procedure. Call your doctor for instructions. Wear a medical alert tag or carry an ID card stating that you take warfarin. Any medical care provider who treats you should know that you are taking this medicine. Store at room temperature away from heat, moisture, and light. What happens if I miss a dose? Take the missed dose as soon as you remember. Skip the missed dose if it is almost time for your next scheduled dose. Do not take extra medicine to make up the missed dose. What happens if I overdose? Seek emergency medical attention or call the Poison Help line at . An overdose can cause excessive bleeding. What should I avoid while taking warfarin? Avoid activities that may increase your risk of bleeding or injury. Use extra care to prevent bleeding while shaving or brushing your teeth. You may still bleed more easily for several days after you stop taking warfarin. Avoid making any changes in your diet without first talking to your doctor. Foods that are high in vitamin K (liver, leafy green vegetables, or vegetable oils) can make warfarin less effective. If these foods are part of your diet, eat a consistent amount on a weekly basis. Grapefruit juice, cranberry juice, lamar juice, and pomegranate juice may interact with warfarin and lead to unwanted side effects. Avoid the use of these juice products while taking warfarin. Avoid drinking alcohol. Ask your doctor before using any medicine for pain, arthritis, fever, or swelling. This includes aspirin, ibuprofen (Advil, Motrin), naproxen (Aleve), celecoxib (Celebrex), diclofenac, indomethacin, meloxicam, and others. These medicines may affect blood clotting and may also increase your risk of stomach bleeding. What are the possible side effects of warfarin? Get emergency medical help if you have signs of an allergic reaction: hives; difficult breathing; swelling of your face, lips, tongue, or throat. Warfarin increases your risk of bleeding, which can be severe or life-threatening. Call your doctor at once if you have any signs of bleeding such as: sudden headache, feeling very weak or dizzy; swelling, pain, unusual bruising; bleeding gums, nosebleeds; bleeding from wounds or needle injections that will not stop; heavy menstrual periods or abnormal vaginal bleeding; blood in your urine, bloody or tarry stools; or coughing up blood or vomit that looks like coffee grounds. Clots formed by warfarin may block normal blood flow, which could lead to tissue or amputation of the affected body part. Get medical help at once if you have: pain, swelling, hot or cold feeling, skin changes, or discoloration anywhere on your body; or sudden and severe leg or foot pain, foot ulcer, purple toes or fingers. Bleeding is the most common side effect of warfarin. This is not a complete list of side effects and others may occur. Call your doctor for medical advice about side effects. You may report side effects to FDA at 5-384-TKV-1585. What other drugs will affect warfarin? Many drugs (including some cjkh-fgj-qidjiyy medicines and herbal products) can affect your INR and may increase the risk of bleeding if you take them with warfarin. Not all possible drug interactions are listed in this medication guide. It is very important to ask your doctor and pharmacist before you start or stop using any other medicine, especially: other medicines to prevent blood clots; an antibiotic or antifungal medicine; supplements that contain vitamin K; or herbal (botanical) products--coenzyme Q10, cranberry, echinacea, garlic, ginkgo biloba, ginseng, goldenseal, or Yennifer's wort. This list is not complete and many other drugs can interact with warfarin. This includes prescription and ycuh-ymg-irifxzd medicines, vitamins, and herbal products. Give a list of all your medicines to any healthcare provider who treats you. Where can I get more information? Your pharmacist can provide more information about warfarin. Remember, keep this and all other medicines out of the reach of children, never share your medicines with others, and use this medication only for the indication prescribed. Every effort has been made to ensure that the information provided by [employer]. [employer]') is accurate, up-to-date, and complete, but no guarantee is made to that effect. Drug information contained herein may be time sensitive. [employer] information has been compiled for use by healthcare practitioners and consumers in the [place] and therefore [employer] does not warrant that uses outside of the [place] are appropriate, unless specifically indicated otherwise. [employer] drug information does not endorse drugs, diagnose patients or recommend therapy. [employer] drug information is an informational resource designed to assist licensed healthcare practitioners in caring for their patients and/or to serve consumers viewing this service as a supplement to, and not a substitute for, the expertise, skill, knowledge and judgment of healthcare practitioners. The absence of a warning for a given drug or drug combination in no way should be construed to indicate that the drug or drug combination is safe, effective or appropriate for any given patient. [employer] does not assume any responsibility for any aspect of healthcare administered with the aid of information [facility] provides. The information contained herein is not intended to cover all possible uses, directions, precautions, warnings, drug interactions, allergic reactions, or adverse effects. If you have questions about the drugs you are taking, check with your doctor, nurse or pharmacist. Copyright 5732-6755 [facility] [employer]. Version: 22.01. Revision Date: 02/02/2017. enoxaparin (ee NOX a PAR rin) Lovenox What is the most important information I should know about enoxaparin? Enoxaparin can cause a very serious blood clot around your spinal cord if you undergo a spinal tap or receive spinal anesthesia (epidural), especially if you have a genetic spinal defect, a history of spinal surgery or repeated spinal taps, or if you are using other drugs that can affect blood clotting, including blood thinners or NSAIDs (ibuprofen, Advil, Aleve, and others). This type of blood clot can lead to long-term or permanent paralysis. Get emergency medical help if you have symptoms of a spinal cord blood clot such as back pain, numbness or muscle weakness in your lower body, or loss of bladder or bowel control. What is enoxaparin? Enoxaparin is an anticoagulant that helps prevent the formation of blood clots. Enoxaparin is used to treat or prevent a type of blood clot called deep vein thrombosis (DVT), which can lead to blood clots in the lungs (pulmonary embolism). A DVT can occur after certain types of surgery, or in people who are bed-ridden due to a prolonged illness. Enoxaparin is also used to prevent blood vessel complications in people with certain types of angina (chest pain) or heart attack. Enoxaparin may also be used for purposes not listed in this medication guide. What should I discuss with my healthcare provider before using enoxaparin? You should not use this medicine if you are allergic to enoxaparin, heparin, benzyl alcohol, or pork products, or if you have: active or uncontrolled bleeding; or if you had decreased platelets in your blood after testing positive for a certain antibody while using enoxaparin within the past 100 days. Enoxaparin may cause you to bleed more easily, especially if you have: a bleeding disorder that is inherited or caused by disease; hemorrhagic stroke; an infection of the lining of your heart (also called bacterial endocarditis); stomach or intestinal bleeding or ulcer; or recent brain, spine, or eye surgery. Enoxaparin can cause a very serious blood clot around your spinal cord if you undergo a spinal tap or receive spinal anesthesia (epidural). This type of blood clot could cause long-term or permanent paralysis, and may be more likely to occur if: you have a spinal cord injury; you have a spinal catheter in place or if a catheter has been recently removed; you have a history of spinal surgery or repeated spinal taps; you have recently had a spinal tap or epidural anesthesia; you take aspirin or an NSAID (nonsteroidal anti-inflammatory drug)--ibuprofen (Advil, Motrin), naproxen (Aleve), diclofenac, indomethacin, meloxicam, and others; or you are using a blood thinner (warfarin, Coumadin) or other medicines to treat or prevent blood clots. Tell your doctor if you have ever had: a bleeding disorder such as hemophilia; kidney or liver disease; uncontrolled high blood pressure; eye problems caused by diabetes; a stomach ulcer; or low blood platelets after receiving heparin. Tell your doctor if you are . If you use enoxaparin during , make sure your doctor knows if you have a mechanical heart valve. It may not be safe to breast-feed while using this medicine. Ask your doctor about any risk. How should I use enoxaparin? Follow all directions on your prescription label and read all medication guides or instruction sheets. Use the medicine exactly as directed. Enoxaparin is injected under the skin, or as an infusion into a vein. A healthcare provider may teach you how to properly use the medication by yourself. Read and carefully follow any Instructions for Use provided with your medicine. Do not use enoxaparin if you don't understand all instructions for proper use. Ask your doctor or pharmacist if you have questions. Prepare your injection only when you are ready to give it. Do not use if the medicine has changed colors, or has particles in it. Call your pharmacist for new medicine. You should be sitting or lying down during the injection. Do not inject enoxaparin into a muscle. Your care provider will show you where on your body to inject enoxaparin. Use a different place each time you give an injection. Do not inject into the same place two times in a row. You will need frequent medical tests to help your doctor determine how long to treat you with enoxaparin. If you need surgery or dental work, tell your surgeon or dentist you currently use this medicine. You may need to stop for a short time. Store at room temperature away from moisture and heat. Each single-use prefilled syringe is for one use only. Throw it away after one use, even if there is still medicine left inside. After your first use of an enoxaparin vial (bottle), you must use the medicine within 28 days. Throw away the vial after 28 days. Use a needle and syringe only once and then place them in a puncture-proof 'sharps' container. Follow state or local laws about how to dispose of this container. Keep it out of the reach of children and pets. What happens if I miss a dose? Use the medicine as soon as you can, but skip the missed dose if it is almost time for your next dose. Do not use two doses at one time. What happens if I overdose? Seek emergency medical attention or call the Poison Help line at . Overdose may cause excessive bleeding. What should I avoid while using enoxaparin? Avoid activities that may increase your risk of bleeding or injury. Use extra care to prevent bleeding while shaving or brushing your teeth. What are the possible side effects of enoxaparin? Get emergency medical help if you have signs of an allergic reaction: hives; itching or burning skin; difficult breathing; swelling of your face, lips, tongue, or throat. Also seek emergency medical attention if you have symptoms of a spinal blood clot: back pain, numbness or muscle weakness in your lower body, or loss of bladder or bowel control. Call your doctor at once if you have: unusual bleeding, or any bleeding that will not stop; easy bruising, purple or red spots under your skin; nosebleeds, bleeding gums; abnormal vaginal bleeding, blood in your urine or stools; coughing up blood or vomit that looks like coffee grounds; signs of bleeding in the brain--sudden weakness (especially on one side of the body), sudden severe headache, problems with speech or vision; or low red blood cells (anemia)--pale skin, unusual tiredness, feeling light-headed or short of breath, cold hands and feet. Common side effects may include: nausea, diarrhea; anemia; confusion; or pain, bruising, redness, or irritation where the medicine was injected. This is not a complete list of side effects and others may occur. Call your doctor for medical advice about side effects. You may report side effects to FDA at 5-790-FQQ-0385. What other drugs will affect enoxaparin? Tell your doctor about all your other medicines, especially other medicines to treat or prevent blood clots, such as: abciximab, anagrelide, cilostazol, clopidogrel, dipyridamole, eptifibatide, ticlopidine, tirofiban; alteplase, reteplase, tenecteplase, urokinase; apixaban, argatroban, bivalirudin, dabigatran, desirudin, fondaparinux, lepirudin, rivaroxaban, tinzaparin; or heparin. This list is not complete. Other drugs may affect enoxaparin, including prescription and gueb-gog-vyrtyym medicines, vitamins, and herbal products. Not all possible drug interactions are listed here. Where can I get more information? Your doctor or pharmacist can provide more information about enoxaparin. Remember, keep this and all other medicines out of the reach of children, never share your medicines with others, and use this medication only for the indication prescribed. Every effort has been made to ensure that the information provided by [employer]') is accurate, up-to-date, and complete, but no guarantee is made to that effect. Drug information contained herein may be time sensitive. [employer] information has been compiled for use by healthcare practitioners and consumers in the [place] and therefore [employer] does not warrant that uses outside of the [place] are appropriate, unless specifically indicated otherwise. [employer] drug information does not endorse drugs, diagnose patients or recommend therapy. [employer] drug information is an informational resource designed to assist licensed healthcare practitioners in caring for their patients and/or to serve consumers viewing this service as a supplement to, and not a substitute for, the expertise, skill, knowledge and judgment of healthcare practitioners. The absence of a warning for a given drug or drug combination in no way should be construed to indicate that the drug or drug combination is safe, effective or appropriate for any given patient. [facility] does not assume any responsibility for any aspect of healthcare administered with the aid of information [facility] provides. The information contained herein is not intended to cover all possible uses, directions, precautions, warnings, drug interactions, allergic reactions, or adverse effects. If you have questions about the drugs you are taking, check with your doctor, nurse or pharmacist. Copyright 1208-2201 [facility]. Version: 11.03. Revision Date: 12/03/2018. Education Materials Angiogram An angiogram is a procedure used to examine the blood vessels. In this procedure, contrast dye is injected through a long, thin tube (catheter) into an artery. X-rays are then taken, which show if there is a blockage or problem in a blood vessel. The catheter may be inserted in: Your groin area. This is the most common. The fold of your arm, near your elbow. Your wrist. Tell a health care provider about: Any allergies you have, including allergies to shellfish or contrast dye. All medicines you are taking, including vitamins, herbs, eye drops, creams, and qugf-cya-iptujxn medicines. Any problems you or family members have had with anesthetic medicines. Any blood disorders you have. Any surgeries you have had. Any previous kidney problems or failure you have had. Any medical conditions you have. Whether you are or may be . Whether you are . What are the risks? Generally, this is a safe procedure. However, problems may occur, including: Infection or bruising at the catheter area. Damage to other structures or organs, including rupture of blood vessels or damage to arteries. Allergic reaction to the contrast dye used. Kidney damage from the contrast dye used. Blood clots that can lead to a stroke or heart attack. What happens before the procedure? Staying hydrated Follow instructions from your health care provider about hydration, which may include: Up to 2 hours before the procedure you may continue to drink clear liquids, such as water, clear fruit juice, black coffee, and plain tea. Eating and drinking restrictions Follow instructions from your health care provider about eating and drinking, which may include: 8 hours before the procedure stop eating heavy meals or foods such as meat, fried foods, or fatty foods. 6 hours before the procedure stop eating light meals or foods, such as toast or cereal. 6 hours before the procedure stop drinking milk or drinks that contain milk. 2 hours before the procedure stop drinking clear liquids. General instructions Ask your health care provider about: ? Changing or stopping your normal medicines. This is important if you take diabetes medicines or blood thinners. ? Taking medicines such as aspirin and ibuprofen. These medicines can thin your blood. Do not take these medicines before your procedure if your doctor tells you not to. You may have blood samples taken. Plan to have someone take you home from the hospital or clinic. If you will be going home right after the procedure, plan to have someone with you for 24 hours. What happens during the procedure? To reduce your risk of infection: ? Your health care team will wash or sanitize their hands. ? Your skin will be washed with soap. ? Hair may be removed from the insertion area. You will lie on your back on an X-ray table. You may be strapped to the table if it is tilted. An IV tube will be inserted into one of your veins. Electrodes may be placed on your chest to monitor your heart rate during the procedure. You will be given one or more of the following: ? A medicine to help you relax (sedative). ? A medicine to numb the area where the catheter will be inserted (local anesthetic). The catheter will be inserted into an artery using a guide wire. A type of X-ray (fluoroscopy) will be used to help guide the catheter to the blood vessel to be examined. A contrast dye will then be injected into the catheter, and X-rays will be taken. The contrast will help to show where any narrowing or blockages are located in the blood vessels. You may feel flushed as the contrast dye is injected. After the X-ray is complete, the catheter will be removed. A bandage (dressing) will be placed over the site where the catheter was inserted. Pressure will be applied to help stop any bleeding. The procedure may vary among health care providers and hospitals. What happens after the procedure? Your blood pressure, heart rate, breathing rate, and blood oxygen level will be monitored until the medicines you were given have worn off. You will be kept in bed lying flat for several hours. If the catheter was inserted through your leg, you will be instructed not to bend or cross your legs. The insertion area and the pulse in your feet or wrist will be checked frequently. You will be instructed to drink plenty of fluids. This will help wash the contrast dye out of your body. Additional blood tests and X-rays may be done. Tests to check the electrical activity in your heart (electrocardiogram) may be done. Do not drive for 24 hours if you received a sedative. It is up to you to get the results of your procedure. Ask your health care provider, or the department that is doing the procedure, when your results will be ready. Summary An angiogram is a procedure used to examine the blood vessels. In this procedure, contrast dye is injected through a long, thin tube (catheter) into an artery. X-rays are then taken. Before the procedure, follow your health care provider's instructions about eating and drinking restrictions. You may be asked to stop eating and drinking several hours before the procedure. After the procedure, you will need to lie flat for several hours and drink plenty of fluids. This information is not intended to replace advice given to you by your health care provider. Make sure you discuss any questions you have with your health care provider. Document Released: 02/15/2006 Document Revised: 04/20/2018 Document Reviewed: 06/14/2017 [employer] Patient Education 2020 [employer]. Additional Information VACCINATE! IT SAVES LIVES! Members of the community who have not yet received the COVID-19 vaccine and would like to receive it can visit one of [facility] vaccine clinics. There are many vaccine clinic locations within the [facility]. For locations and available times, please visit [email or web address] It is important to note that some COVID mobile vaccine clinics are held outdoors and may be canceled in rainy or stormy conditions. To learn more about pediatric vaccinations (ages 5-11), we invite you to visit the [facility] webpage. [email or web address] To learn more about the COVID-19 vaccine, we invite you to visit the [employer] website for a list of frequently asked questions. [email or web address] [email or web address] Quarterly Patient Portal Access Instructions: Stay connected with your healthcare team and access your personal medical information anytime with the Quarterly Patient Portal.If you would like a full copy of your medical records, please contact the [facility] Medical Records Department, Monday through Monday between 8a.m. and 4:30p.m. Please follow the directions below to access the portal: 1.Access the email account you provided upon registration to the [facility].2.Look for an invitation email from [facility].3.Open the email and access the invitation link: Accept Invitation to [employer]4.Fill in the required kirby to create your account. Sign into [email or web address] with your username and password that you created in the above steps to stay up to date. You can then view a summary of results, a summary of your visits, and the ability to download your summaries to your computer or send the information securely to a physician. Remember that your healthcare information is confidential, so carefully consider who you will allow to register on the [employer] Patient Portal for access to your information. You can also access the [employer] Patient Portal on the [employer]. Simply click on Health Records under Health Data and then click on the [employer] logo. HOW TO SAFELY DISPOSE OF PRESCRIPTION MEDICATIONS Please use one of the following methods to safely dispose of your unused medications. 1.Use a drug disposal kit: the drug disposal pouch allows you to safely discard your old and unused drugs. Ask your nurse to give you one when you are discharged.2.Visit a local take-back location: Many local pharmacies and police departments have programs that collect old and unwanted prescription drugs. Call your local pharmacy or go to [email or web address]/[email or web address] to find one close to you.3.Make use of household items: Use cat litter or old coffee grounds to dispose medications if other options are not available. Mix your drugs with these household products, seal them in an airtight container and throw it into the garbage. Call [facility]: [phone] to be sure your drugs can be disposed of in this way. Some medicines may require a different approach.4.Never flush your medications down the toilet. IF YOU HAVE BEEN PRESCRIBED AN OPIOID FOR PAIN If you have been prescribed an opioid (such as hydrocodone, oxycodone or morphine), it is critical to understand the possible side effects and risks of opioid pain medications. Even when taken as directed, opioids can have several side effects including: Tolerance, meaning you might need to take more of a medication for the same pain relief. Nausea, vomiting and/or constipation. Sleepiness, dizziness, dry mouth, confusion, depression or itching. Physical dependence, meaning you have withdrawal symptoms when a medication is stopped, can develop within a few days. KNOW YOUR RESPONSIBILITIES It is important to know exactly how much and how often to take the opioid pain medications you are prescribed. Never take opioids in higher amounts or more often than prescribed. Do not combine opioids with alcohol or other drugs that cause drowsiness, such as benzodiazepines, also known as benzos, including diazepam and alprazolam, muscle relaxants or sleep aids. Never sell or share prescription opioids. This is illegal. Store opioids in a secure place and out of reach of others (including children, family, friends and visitors). The last page of this document has been signed and retained as a CHART COPY. Signatures Patient Education Materials Angiogram Medication Leaflets Coumadin, enoxaparin My discharge plan and instructions have been reviewed and explained to me and IEARNEST DEVIN B understand my current condition and have read and understand these discharge instructions. I have received a written copy of the plan/instructions. If I have questions, I am aware that I should contact my doctor. Patient/Architect Internship Signature: Date/Time: Relationship to Patient: ___ Witness Name/Signature: Date/Time: [facility] 04-09-2022 Vascular surgery Progress note Date of Service 04/09/2022 -Patient seen and examined -Left lower extremity: Foot is warm to touch; left groin with no hematoma; difficult to palpate PT pulse -Dr. Haro also saw patient at same time -Increase activity -Plan for Lovenox bridge to Coumadin and discharged home later today -Relayed to patient that she is to do no heavy lifting or driving for 48 hours from time of procedure -Patient will have follow-up arranged with Dr. Valentine Digitally Signed by ARELY PACHECO MD on 04/09/2022 11:13 AM [facility] 04-09-2022 Discharge summary Date of Service April 09, 2022 Discharge Diagnosis 1. PAD (peripheral artery disease) (I73.9 - ICD-10-CM) Ordered: Plavix 75 mg oral tablet; Dose : 75 mg = 1 tab(s), Oral, qDay, # 30 tab(s), 0 Refill(s), Pharmacy: [id number], PAD (peripheral artery disease) Thrombosis/embolism, arterial, 157.5, cm, 04/07/22 17:14:00 EST, Height 2. Thrombosis/embolism, arterial (I74.9 - ICD-10-CM) Ordered: Plavix 75 mg oral tablet; Dose : 75 mg = 1 tab(s), Oral, qDay, # 30 tab(s), 0 Refill(s), Pharmacy: [id number], PAD (peripheral artery disease) Thrombosis/embolism, arterial, 157.5, cm, 04/07/22 17:14:00 EST, Height Unspecified atherosclerosis of [place] arteries of extremities, left leg (I70.202 - ICD-10-CM) Unspecified atherosclerosis of buck[place] arteries of extremities, left leg (I70.202 - ICD-10-CM) Other disorder of circulatory system (I99.8 - ICD-10-CM) Atherosclerosis of renal artery (I70.1 - ICD-10-CM) Additional Orders: Ordered: Cardiolipin IgG Antibodies,04/08/22 9:00:00 EST, URGENT (collect within 2 hrs), Blood, Once, Preferred Lab: [facility], Stop date 04/08/22 9:00:00 EST Ordered: Cardiolipin IgM Antibodies,04/08/22 9:00:00 EST, URGENT (collect within 2 hrs), Blood, Once, Preferred Lab: [facility], Stop date 04/08/22 9:00:00 EST Ordered: Coumadin,Start: 04/09/22 11:15:00 EST, Dose = 7.5 mg, = 1 tab(s), Oral, Once, Stop: 04/09/22 11:15:00 EST, 04/09/22 11:05:00 EST Ordered: Coumadin use warfarin ,Dose : 2.5 mg =, Oral, qDay, # 30 tab(s), 0 Refill(s), 157.5, cm, 04/07/22 17:14:00 EST, Height Ordered: Discharge,04/09/22 11:10:00 EST, Discharged to: Home Ordered: Discharge Activity,Resume your pre-hospitalization activity, 04/09/22 11:10:00 EST Ordered: Discharge Diet,No changes were made to your diet during your hospital stay. Please resume your pre hospitalization diet on discharge., 04/09/22 11:10:00 EST Ordered: Discharge Outpatient Labwork,PT/INR, Coumadin therapy, follow-up within: 2-4 days, Results Notify to: MD ALANA HARO MD, Draw PT/INR on April 11, call with results and dosing will be decided upon that Ac may be reached at [phone], 04/09/22 11:10:00 EST Ordered: Lovenox 60 mg/0.6 mL injectable solution,Dose : 50 mg = 0.5 mL, Subcutaneous, q12h, X 7 day(s), # 8.4 mL, 0 Refill(s), 04/16/22 11:07:00 EST, Pharmacy: [id number], 157.5, cm, 04/07/22 17:14:00 EST, Height Ordered: Prothrombin Gene Mutation,04/08/22 9:00:00 EST, URGENT (collect within 2 hrs), Blood, Once, Preferred Lab: [facility], Stop date 04/08/22 9:00:00 EST End of Orders Hospital Course Patient was directly admitted to the hospital with evidence of peripheral arterial disease on the left. Patient's ABIs indicated aortoiliac type occlusion. CTA with runoff showed evidence of a common iliac thrombus on the left. This was treated interventionally. The patient has not had a stent placed secondary to the relatively small caliber of the artery. Patient is being discharged on a combination of Lovenox and Coumadin. Patient's target INR is 2.5-3.5. Patient has a hypercoagulable work-up pending. Patient is being discharged on an initial dose of 7.5 mg of Coumadin today and tomorrow. PT/INR will be obtained on April 11 and dosing will be decided upon that day dependent on the result. Outpatient follow-up will be with vascular surgery as well as [facility] physicians Allergies Latex (rash) rubber-neoprene (swelling) Consults Consult to Physician - Ordered -- 04/07/22 16:58:00 FABY, ARMEN VALENTINE MD, Routine, AD, aortoiliac ischemia Objective Vitals and Measurements T: 36.6 C (Oral) TMIN: 36.5 C (Oral) TMAX: 36.6 C (Oral) HR: 83 RR: 18 BP: 102/67 SpO2: 95% Weight Dosing Weight: 63.6 kg (04/07/22) Dosing Weight: 63.6 kg (04/07/22) Code Status Code Status - Ordered -- 04/07/22 16:58:00 EST, Full Code, Constant Order Admission Date April 07, 2022 Discharge Date April 09, 2022 Medications New Prescription clopidogrel (Plavix 75 mg oral tablet)1 tab(s) by mouth once a day. Refills: 0. enoxaparin (Lovenox 60 mg/0.6 mL injectable solution)0.5 Milliliter Subcutaneous every 12 hours for 7 Days. Refills: 0. warfarin (Coumadin use warfarin )2.5 Milligram by mouth once a day. Refills: 0. Unchanged acetaminophen (Tylenol 8 Hour 650 mg oral tablet, extended release)2 tab(s) by mouth every 8 hours as needed as needed for fever. amLODIPine (amLODIPine 10 mg oral tablet)1 tab(s) by mouth once a day. aspirin (aspirin 81 mg oral tablet (chewable))1 tab(s) by mouth every day. carvedilol (carvedilol 12.5 mg oral tablet)1 tab(s) by mouth two (2) times a day. hydroCHLOROthiazide (hydroCHLOROthiazide 25 mg oral tablet)1 tab(s) by mouth once a day. lisinopril (lisinopril 20 mg oral tablet)1 tab(s) by mouth two (2) times a day. nitroGLYcerin (nitroglycerin 0.4 mg sublingual tablet)DISSOLVE 1 TABLET UNDER THE TONGUE NEEDED FOR CHEST PAIN- MAY REPEAT EVERY 5 MINUTES IF NEEDED ( MAX 3 DOSES.- IF NO RELIEF CALL 911). Discontinued atorvastatin (atorvastatin 40 mg oral tablet)1 tab(s) by mouth once a day. cyclobenzaprine (cyclobenzaprine 10 mg oral tablet)1 tab(s) by mouth three (3) times a day as needed for muscle spasm. Refills: 0. Follow Up Appointments No qualifying data available. Follow Up Labs/Studies Discharge Labs Discharge Outpatient Labwork - Ordered -- PT/INR, Coumadin therapy, follow-up within: 2-4 days, Results Notify to: MD ALANA HARO MD, Draw PT/INR on April 11, call with results and dosing will be decided upon that Ac may be reached at [phone], 04/09/22 11:10:00 EST Discharge Studies No Follow-up Studies Discharge Diet Discharge Diet - Ordered -- No changes were made to your diet during your hospital stay. Please resume your pre hospitalization diet on discharge., 04/09/22 11:10:00 EST Discharge Activity Discharge Activity - Ordered -- Resume your pre-hospitalization activity, 04/09/22 11:10:00 EST Readmission Risk/Palliative Score LACE Score: 7 (04/08/22 08:55:00) Palliative Total Score: 1 (04/08/22 08:55:00) Digitally Signed by MD ALANA HARO MD on 04/09/2022 11:13 AM [facility] 1. PAD (peripheral artery di sease) Patient has occlusion of the common iliac on the left side. Stenting or lysis will probably be performed later today. Discussed with Dr. Valentine. 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 The main renal artery is also occluded. 2. Thrombosis/embolism, arterial Due to the clotting of major arteries, hypercoagulable state is a high probability. Patient will require target INR of 2.5-3.5 after procedures are complete. Hypercoagulable work-up has been ordered as of this morning. Orders: acetaminophen, Start: 04/07/22 16:58:00 EST, Dose = 650 mg, = 2 tab(s), Oral, q4h, PRN, Pain, scale 1-3, 0, 04/07/22 16:58:00 EST acetaminophen, Start: 04/07/22 16:58:00 EST, Dose = 650 mg, = 2 tab(s), Oral, q4h, PRN, TEMP greater than 38.6 degrees Celsius, 04/07/22 16:58:00 EST acetaminophen-hydrocodone, Start: 04/07/22 16:58:00 EST, Dose = 1 tab(s), Tab, Oral, q4h, PRN, Pain, scale 4-6, 04/07/22 16:58:00 EST albuterol, Start: 04/07/22 16:58:00 EST, Dose = 2.5 mg, = 3 mL, Inhalation, q4hRT, PRN, Shortness of breath or wheezing, 04/07/22 16:58:00 EST amLODIPine, Start: 04/08/22 9:00:00 EST, Dose = 10 mg, = 1 tab(s), Oral, qDay, 1st dose location: [facility], 0, 04/07/22 17:34:00 EST aspirin, Start: 04/08/22 9:00:00 EST, Dose = 81 mg, = 1 tab(s), Oral, Daily, 0, 04/07/22 17:34:00 EST carvedilol, Start: 04/07/22 20:00:00 EST, Dose = 12.5 mg, = 1 tab(s), Oral, BID, 0, 04/07/22 17:34:00 EST hydroCHLOROthiazide, Start: 04/08/22 9:00:00 EST, Dose = 25 mg, = 1 tab(s), Oral, qDay, 0, 04/07/22 17:34:00 EST lisinopril, Start: 04/07/22 21:00:00 EST, Dose = 20 mg, = 1 tab(s), Oral, BID, 04/07/22 17:34:00 EST melatonin, Start: 04/07/22 16:58:00 EST, Dose = 3 mg, = 1 tab(s), Oral, qHS, PRN, Sleep, 04/07/22 16:58:00 EST morphine, Start: 04/07/22 16:58:00 EST, Dose = 5 mg, = 2.5 mL, IV Push, q3h, PRN, Pain, scale 7-10, 0, 04/07/22 16:58:00 EST ondansetron, Start: 04/07/22 16:58:00 EST, Dose = 4 mg, = 2 mL, IV Push, q4h, PRN, Nausea/Vomiting, 04/07/22 16:58:00 EST Admit to Inpatient Ambulate Antinuclear Antibody Screen, Serum Antithrombin III Assay APC Factor V Resistance APTT Panel Blood Glucose Call Parameter Blood Glucose Call Parameter Cardiolipin IgG Antibodies Cardiolipin IgM Antibodies Circulating Anticoagulants - Panel Code Status Communication Order (continuous) Communication Order (continuous) Consult to Physician Diet Order Intake and Output IV Catheter Insertion/Care Prn Adapter Protein C Activity Protein S Activity Free Ag Prothrombin Gene Mutation Pulse Oximeter - Intermittent Vital Signs Diagnostic Tests Pending * Antinuclear Antibody Screen, Serum 04/08/22 * Protein C Activity 04/08/22 * Protein S Activity Free Ag 04/08/22 * APC Factor V Resistance 04/08/22 * Antithrombin III Assay 04/08/22 * Circulating Anticoagulants - Panel 04/08/22 * Prothrombin Gene Mutation 04/08/22 * Cardiolipin IgG Antibodies 04/08/22 * Cardiolipin IgM Antibodies 04/08/22 [facility] 11-18-2022 Note ORIGINAL Images acquired, not reported on this accession number. [id number] Note ORIGINAL Images acquired, not reported on this accession number.[facility] 04-08-2022 Vascular surgery Consult note Date of Service 04/08/2022 History of Present Illness This is a 46-year-old well known to me. She has had known history of PAD but worsening symptoms over the last couple weeks. Saw her in the office and has been admitted in the hospital on a heparin drip. We were able to get the CTA that shows a left common iliac occlusion. Discussed we do intervention on this. The Review of Systems All negative except for the HPI Physical Exam Vitals and Measurements T: 36.8 C (Oral) TMIN: 36.4 C (Oral) TMAX: 36.8 C (Oral) HR: 74(Monitored) RR: 18 BP: 119/69 SpO2: 97% HT: 157.5 cm WT: 63.6 kg BMI: 25.64 Weight Dosing Weight: 63.6 kg (04/07/22) Dosing Weight: 63.6 kg (04/07/22) Patient awake alert oriented No apparent distress Afebrile vital signs stable HEENT: Normocephalic atraumatic Pupils equal, reactive Moist mucous membrane Neck supple Chest nontender Lungs clear Heart appears regular Abdomen soft Extremities palpable radial pulses Right leg with pulses Decreased signals left leg Decreased cap refill left foot Moves all 4 extremities Lab Results 04/08 05:50 WBC: 6.9 Hgb: 12.8 Hct: 37.8 Platelet: 224 Neutrophil %: 45.3 L Glucose Level: 99 Sodium Level: 136 Potassium Level: 4.2 BUN: 12.0 Creatinine Lvl (s): 1.10 04/07 19:49 WBC: 8.7 Hgb: 13.1 Hct: 36.9 Platelet: 222 Neutrophil %: 48.0 L Protime: 11.5 PT International Ratio: 1.0 Assessment/Plan 1. PAD (peripheral artery disease) Ordered: clopidogrel, Start: 04/08/22 13:16:00 EST, Dose = 75 mg, = 1 tab(s), Oral, qDay, 04/08/22 13:16:00 EST Communication Order (continuous) 2. Thrombosis/embolism, arterial And for angiogram with intervention Ordered: clopidogrel, Start: 04/08/22 13:16:00 EST, Dose = 75 mg, = 1 tab(s), Oral, qDay, 04/08/22 13:16:00 EST Orders: heparin, Start: 04/07/22 17:58:00 EST, Dose = 3,816 unit(s), = 0.76 mL, IV Push, q6h, PRN, Protocol, Weight Based Heparin, 04/07/22 17:58:00 EST heparin 25,000 unit(s) [12 unit(s)/kg/hr] + Dextrose 5% Premix Diluent 250 mL, Start: 04/07/22 17:58:00 EST, Rate: 7.63 mL/hr, 04/07/22 17:58:00 EST Call Parameters Complete Blood Count Heparin/APTT Initiation Heparin/APTT Maintenance Heparin/APTT Maintenance Heparin/APTT Maintenance Heparin/APTT Maintenance Problem List/Past Medical History Ongoing Arm paresthesia, right Historical No qualifying data Procedure/Surgical History Cholecystectomy Medications Inpatient albuterol 2.5 mg/3 mL (0.083%) inhalation solution, 2.5 mg= 3 mL, Inhalation, q4hRT, PRN amLODIPine, 10 mg= 1 tab(s), Oral, qDay aspirin 81 mg oral tablet, chewable, 81 mg= 1 tab(s), Oral, Daily carvedilol 12.5 mg oral tablet, 12.5 mg= 1 tab(s), Oral, BID Heparin for IV 25,000 unit(s) [12 unit(s)/kg/hr] + Dextrose 5% Premix Diluent 250 mL Heparin HBW CARDIAC Bolus 5000 units/mL, 3816 unit(s)= 0.76 mL, 60 unit(s)/kg, IV Push, q6h, PRN hydroCHLOROthiazide, 25 mg= 1 tab(s), Oral, qDay lisinopril, 20 mg= 1 tab(s), Oral, BID melatonin, 3 mg= 1 tab(s), Oral, qHS, PRN morphine, 5 mg= 2.5 mL, IV Push, q3h, PRN Blanchard 325- 5 mg oral tablet, 1 tab(s), Oral, q4h, PRN Plavix, 75 mg= 1 tab(s), Oral, qDay Tylenol, 650 mg= 2 tab(s), Oral, q4h, PRN Tylenol, 650 mg= 2 tab(s), Oral, q4h, PRN Zofran, 4 mg= 2 mL, IV Push, q4h, PRN Home amLODIPine 10 mg oral tablet, 10 mg= 1 tab(s), Oral, qDay aspirin 81 mg oral tablet (chewable), 81 mg= 1 tab(s), Oral, Daily atorvastatin 40 mg oral tablet, 40 mg= 1 tab(s), Oral, qDay, Not taking carvedilol 12.5 mg oral tablet, 12.5 mg= 1 tab(s), Oral, BID cyclobenzaprine 10 mg oral tablet, 10 mg= 1 tab(s), Oral, TID, PRN, Not taking hydroCHLOROthiazide 25 mg oral tablet, 25 mg= 1 tab(s), Oral, qDay lisinopril 20 mg oral tablet, 20 mg= 1 tab(s), Oral, BID nitroglycerin 0.4 mg sublingual tablet Tylenol 8 Hour 650 mg oral tablet, extended release, 1300 mg= 2 tab(s), Oral, q8h, PRN Allergies Latex (rash) rubber-neoprene (swelling) Social History Smoking Status - 02/01/2018 Current every day smoker Alcohol - Denies Alcohol Use, 01/31/2018 Use: Current. Frequency: 1-2 times per month., 09/24/2019 Employment/School Status: Employed. Activity Level: Moderate physical work., 11/25/2020 Home/Environment Domestic Concerns: None. Living situation: Home/Independent., 11/25/2020 Nutrition/Health Caffeine intake amount: 6 cups coffee daily., 09/24/2019 Sexual Sexually active: No. Self described orientation: Lesbian, rosado or homosexual., 11/25/2020 Substance Abuse - Denies Substance Abuse, 01/31/2018 Type: Marijuana. Frequency: 1-2 times per month., 11/25/2020 Tobacco Tobacco Use: 10 or more cigarettes (1/2 pack or more)/day in last 30 days. Type: Cigarettes. Previous treatment: None. Ready to change: No. Refused smoking cessation information Smoking Cessation Information., 09/20/2018 Family History Diabetes mellitus: Mother. Immunizations SARS-CoV-2 mRNA (tozinameran) vaccine: 0.3 unknown unit (02/24/21) SARS-CoV-2 mRNA (tozinameran) vaccine: 0.3 unknown unit (02/03/21) Digitally Signed by ARMEN VALENTINE MD on 04/08/2022 01:19 PM [id number] History and physical note Date of Service April 08, 2022 Chief Complaint Arterial thrombus History of Present Illness Patient is a 46-year-old female who was brought in for a direct admission. Patient has evidence of ischemia of the lower limb. Patient was placed on heparin drip last night. She has been working withvascular surgery as well. Dr. Valentine will see her later today. Patient was found to have evidence of left common iliac occlusion on the CTA performed last night. Patient has this in the setting of possible myocardial infarction in February 2022. She was seen in [place] for this. Echocardiogram was interpreted with a 65% ejection fraction and no wall motion abnormality. Patient had cardiac catheterization the same month and this showed normal coronary arteries. For this reason, patient is medically clear for any procedure Dr. Valentine would choose today. Review of Systems Review of Systems General: no weight change, fever Eye: no change in vision ENT: no sore throat, sinus problems CV: no chest pain or palpitations Respiratory: no cough or SOB GI: no nausea or jaundice : no urinary frequency Skin: no rashes Endocrine: no polydipsia, goiter Lymphatic: no swollen glands Physical Exam Vitals and Measurements T: 36.8 C (Oral) TMIN: 36.4 C (Oral) TMAX: 36.8 C (Oral) HR: 65 RR: 18 BP: 97/64 SpO2: 96% HT: 157.5 cm WT: 63.6 kg BMI: 25.64 Weight Dosing Weight: 63.6 kg (04/07/22) Dosing Weight: 63.6 kg (04/07/22) Physical Exam General: A&O times three CV: regular, PMI nondisplaced Resp: clear, normal effort Abd: soft, few bowel sounds present Ext: no edema, left lower extremity is erythematous Lab Results 04/08 05:50 WBC: 6.9 Hgb: 12.8 Hct: 37.8 Platelet: 224 Neutrophil %: 45.3 L Glucose Level: 99 Sodium Level: 136 Potassium Level: 4.2 BUN: 12.0 Creatinine Lvl (s): 1.10 04/07 19:49 WBC: 8.7 Hgb: 13.1 Hct: 36.9 Platelet: 222 Neutrophil %: 48.0 L Protime: 11.5 PT International Ratio: 1.0 Assessment/Plan 1. PAD (peripheral artery disease) Patient has occlusion of the common iliac on the left side. Stenting or lysis will probably be performed later today. Discussed with Dr. Valentine. 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 The main renal artery is also occluded. 2. Thrombosis/embolism, arterial Due to the clotting of major arteries, hypercoagulable state is a high probability. Patient will require target INR of 2.5-3.5 after procedures are complete. Hypercoagulable work-up has been ordered as of this morning. Orders: acetaminophen, Start: 04/07/22 16:58:00 EST, Dose = 650 mg, = 2 tab(s), Oral, q4h, PRN, Pain, scale1-3, 0, 04/07/22 16:58:00 EST acetaminophen, Start: 04/07/22 16:58:00 EST, Dose = 650 mg, = 2 tab(s), Oral, q4h, PRN, TEMP greater than 38.6 degrees Celsius, 04/07/22 16:58:00 EST acetaminophen-hydrocodone, Start: 04/07/22 16:58:00 EST, Dose = 1 tab(s), Tab, Oral, q4h, PRN, Pain, scale 4-6, 04/07/22 16:58:00 EST albuterol, Start: 04/07/22 16:58:00 EST, Dose = 2.5 mg, = 3 mL, Inhalation, q4hRT, PRN, Shortness of breath or wheezing, 04/07/22 16:58:00 EST amLODIPine, Start: 04/08/22 9:00:00 EST, Dose = 10 mg, = 1 tab(s), Oral, qDay, 1st dose location: [facility], 0, 04/07/22 17:34:00 EST aspirin, Start: 04/08/22 9:00:00 EST, Dose = 81 mg, = 1 tab(s), Oral, Daily, 0, 04/07/22 17:34:00 EST carvedilol, Start: 04/07/22 20:00:00 EST, Dose = 12.5 mg, = 1 tab(s), Oral, BID, 0, 04/07/22 17:34:00 EST hydroCHLOROthiazide, Start: 04/08/22 9:00:00 EST, Dose = 25 mg, = 1 tab(s), Oral, qDay, 0, 04/07/2217:34:00 EST lisinopril, Start: 04/07/22 21:00:00 EST, Dose = 20 mg, = 1 tab(s), Oral, BID, 04/07/22 17:34:00 EST melatonin, Start: 04/07/22 16:58:00 EST, Dose = 3 mg, = 1 tab(s), Oral, qHS, PRN, Sleep, 04/07/22 16:58:00 EST morphine, Start: 04/07/22 16:58:00 EST, Dose = 5 mg, = 2.5 mL, IV Push, q3h, PRN, Pain, scale 7-10,0, 04/07/22 16:58:00 EST ondansetron, Start: 04/07/22 16:58:00 EST, Dose = 4 mg, = 2 mL, IV Push, q4h, PRN, Nausea/Vomiting,04/07/22 16:58:00 EST Admit to Inpatient Ambulate Antinuclear Antibody Screen, Serum Antithrombin III Assay APC Factor V Resistance APTT Panel Blood Glucose Call Parameter Blood Glucose Call Parameter Cardiolipin IgG Antibodies Cardiolipin IgM Antibodies Circulating Anticoagulants - Panel Code Status Communication Order (continuous) Communication Order (continuous) Consult to Physician Diet Order Intake and Output IV Catheter Insertion/Care Prn Adapter Protein C Activity Protein S Activity Free Ag Prothrombin Gene Mutation Pulse Oximeter - Intermittent Vital Signs Problem List/Past Medical History Ongoing Arm paresthesia, right Historical No qualifying data Procedure/Surgical History Cholecystectomy Medications Home Medications (9) Active amLODIPine 10 mg oral tablet 10 mg = 1 tab(s), Oral, qDay aspirin 81 mg oral tablet (chewable) 81 mg = 1 tab(s), Oral, Daily atorvastatin 40 mg oral tablet 40 mg = 1 tab(s), Oral, qDay carvedilol 12.5 mg oral tablet 12.5 mg = 1 tab(s), Oral, BID cyclobenzaprine 10 mg oral tablet 10 mg = 1 tab(s), PRN, Oral, TID hydroCHLOROthiazide 25 mg oral tablet 25 mg = 1 tab(s), Oral, qDay lisinopril 20 mg oral tablet 20 mg = 1 tab(s), Oral, BID nitroglycerin 0.4 mg sublingual tablet Tylenol 8 Hour 650 mg oral tablet, extended release 1,300 mg = 2 tab(s), PRN, Oral, q8h Allergies Latex (rash) rubber-neoprene (swelling) Social History Smoking Status - 02/01/2018 Current every day smoker Alcohol - Denies Alcohol Use, 01/31/2018 Use: Current. Frequency: 1-2 times per month., 09/24/2019 Employment/School Status: Employed. Activity Level: Moderate physical work., 11/25/2020 Home/Environment Domestic Concerns: None. Living situation: Home/Independent., 11/25/2020 Nutrition/Health Caffeine intake amount: 6 cups coffee daily., 09/24/2019 Sexual Sexually active: No. Self described orientation: Lesbian, rosado or homosexual., 11/25/2020 Substance Abuse - Denies Substance Abuse, 01/31/2018 Type: Marijuana. Frequency: 1-2 times per month., 11/25/2020 Tobacco Tobacco Use: 10 or more cigarettes (1/2 pack or more)/day in last 30 days. Type: Cigarettes. Previous treatment: None. Ready to change: No. Refused smoking cessation information Smoking Cessation Information., 09/20/2018 Family History Diabetes mellitus: Mother. Immunizations SARS-CoV-2 mRNA (tozinameran) vaccine: 0.3 unknown unit (02/24/21) SARS-CoV-2 mRNA (tozinameran) vaccine: 0.3 unknown unit (02/03/21) Code Status Code Status - Ordered -- 04/07/22 16:58:00 EST, Full Code, Constant Order Digitally Signed by MD ALANA HARO MD on 04/08/2022 09:05 AM [id number] Note ORIGINAL EXAMINATION: CTA OF THE AORTA WITH LOWER EXTREMITY [id number]/07/2022 10:29 pm TECHNIQUE: CTA of the pelvis and bilateral lower extremities was performed after the administration of intravenous contrast. Multiplanar reformatted images are provided for review. MIP images are provided for review. Automated exposure control, iterative reconstruction, and/or weight based adjustment of the mA/kV was utilized to reduce the radiation dose to as low as reasonably achievable. COMPARISON: None HISTORY: ORDERING SYSTEM PROVIDED HISTORY: Reason for Exam: LEFT LEG PAIN W NUMBNESS, HTN, VASC DISEASE,HX PVD Abnormal IRENE FINDINGS: VASCULAR: ABD AORTA Suprarenal: Mild atherosclerosis. No aneurysm. Infrarenal: Moderate to severe atherosclerosis.No aneurysm. Celiac: No significant stenosis. SMA: Patent at the origin and proximally. SOHAN: Patent at the origin and proximally. RIGHT Renal: No significant stenosis. Single renal artery. LEFT Renal: Dual renal arteries. Occluded main renal artery with contrast opacified accessory superior renal artery. RIGHT KULWINDER: Mild stenosis. EIA: No significant stenosis. MANAGER NEW PRODUCT: No significant stenosis. Profunda: No significant stenosis. SFA: No significant stenosis. Popliteal: No significant stenosis. TP trunk: No significant stenosis. MARGOTH: Runoff present to the ankle. Dorsalis pedis artery is severely diminutive proximally and not opacified starting at the mid segment. Peroneal: Runoff present to the ankle. SOLAR SALES ASSOCIATE: Runoff present to the foot. LEFT KULWINDER: Completely occluded due to predominantly noncalcified atherosclerotic plaque. Reconstitution at the internal/external iliac artery bifurcation. EIA: Diminutive. No significant stenosis. MANAGER NEW PRODUCT: No significant stenosis. Profunda: No significant stenosis. SFA: No significant stenosis. Popliteal: No significant stenosis. TP trunk: No significant stenosis. MARGOTH: Runoff present to the ankle. Dorsalis pedis artery is not opacified. Peroneal: Runoff present to the ankle. SOLAR SALES ASSOCIATE: Runoff present to the foot. NONVASCULAR: LUNG BASES: Unremarkable. LIVER:Diffusely hypoattenuating liver suggestive of hepatic steatosis. BILIARY: No extra or intrahepatic duct dilatation. GALLBLADDER: Surgically absent. SPLEEN: Unremarkable. RT ADRENAL: Unremarkable. LT ADRENAL: Unremarkable. PANCREAS: Unremarkable. ASCITES: None RT KIDNEY: Normal enhancement. No hydronephrosis. LT KIDNEY: Severely atrophic, relatively sparing the superior pole. No hydronephrosis. URINARY BLADDER: Unremarkable. UTERUS: No suspicious uterine lesions. Bilobed right ovarian cyst up to 4.1 cm in greatest axial dimension. No follow-up imaging is required. GI: No obstruction or inflammatory change. No free air. Unremarkable appendix. LYMPHATIC: No pathologically enlarged or aggressive appearing lymph nodes. BONES: No acute osseous abnormality. IMPRESSION: 1. On the right, there is normal 2 vessel lower extremity runoff. The right dorsalis pedis artery is diminutive proximally and at not opacified starting at its midportion. 2. On the left, there is normal 2 vessel lower extremity runoff. The left dorsalis pedis artery is not opacified and the anterior tibial artery is not opacified past the ankle. 3. 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 4. Occluded left main renal artery with associated renal atrophy, with relatively preserved superior pole due to an accessory artery. 5. Right ovarian cyst up to 4.1 cm for which no follow-up is required. I have personally reviewed the images of this examination and agree with the resident's findings and interpretation. RECOMMENDATIONS: Unavailable Interpreted by: Amado Fletcher Preliminary Report By: Kennedy Morrison Electronically signed By Amado Fletcher Dictated Date: 04/07/2022 11:05:54 PM Prelim Date: 04/07/2022 11:32:13 PM Sign Date: 04/08/2022 12:13:00 AM Ordering Provider: [facility]11[facility]17-2022 Note ORIGINAL EXAMINATION: CTA OF THE AORTA WITH LOWER EXTREMITY [id number]/07/2022 10:29 pm TECHNIQUE: CTA of the pelvis and bilateral lower extremities was performed after the administration of intravenous contrast. Multiplanar reformatted images are provided for review. MIP images are provided for review. Automated exposure control, iterative reconstruction, and/or weight based adjustment of the mA/kV was utilized to reduce the radiation dose to as low as reasonably achievable. COMPARISON: None HISTORY: ORDERING SYSTEM PROVIDED HISTORY: Reason for Exam: LEFT LEG PAIN W NUMBNESS, HTN, VASC DISEASE,HX PVD Abnormal IRENE FINDINGS: VASCULAR: ABD AORTA Suprarenal: Mild atherosclerosis. No aneurysm. Infrarenal: Moderate to severe atherosclerosis.No aneurysm. Celiac: No significant stenosis. SMA: Patent at the origin and proximally. SOHAN: Patent at the origin and proximally. RIGHT Renal: No significant stenosis. Single renal artery. LEFT Renal: Dual renal arteries. Occluded main renal artery with contrast opacified accessory superior renal artery. RIGHT KULWINDER: Mild stenosis. EIA: No significant stenosis. MANAGER NEW PRODUCT: No significant stenosis. Profunda: No significant stenosis. SFA: No significant stenosis. Popliteal: No significant stenosis. TP trunk: No significant stenosis. MARGOTH: Runoff present to the ankle. Dorsalis pedis artery is severely diminutive proximally and not opacified starting at the mid segment. Peroneal: Runoff present to the ankle. SOLAR SALES ASSOCIATE: Runoff present to the foot. LEFT KULWINDER: Completely occluded due to predominantly noncalcified atherosclerotic plaque. Reconstitution at the internal/external iliac artery bifurcation. EIA: Diminutive. No significant stenosis. MANAGER NEW PRODUCT: No significant stenosis. Profunda: No significant stenosis. SFA: No significant stenosis. Popliteal: No significant stenosis. TP trunk: No significant stenosis. MARGOTH: Runoff present to the ankle. Dorsalis pedis artery is not opacified. Peroneal: Runoff present to the ankle. SOLAR SALES ASSOCIATE: Runoff present to the foot. NONVASCULAR: LUNG BASES: Unremarkable. LIVER:Diffusely hypoattenuating liver suggestive of hepatic steatosis. BILIARY: No extra or intrahepatic duct dilatation. GALLBLADDER: Surgically absent. SPLEEN: Unremarkable. RT ADRENAL: Unremarkable. LT ADRENAL: Unremarkable. PANCREAS: Unremarkable. ASCITES: None RT KIDNEY: Normal enhancement. No hydronephrosis. LT KIDNEY: Severely atrophic, relatively sparing the superior pole. No hydronephrosis. URINARY BLADDER: Unremarkable. UTERUS: No suspicious uterine lesions. Bilobed right ovarian cyst up to 4.1 cm in greatest axial dimension. No follow-up imaging is required. GI: No obstruction or inflammatory change. No free air. Unremarkable appendix. LYMPHATIC: No pathologically enlarged or aggressive appearing lymph nodes. BONES: No acute osseous abnormality. IMPRESSION: 1. On the right, there is normal 2 vessel lower extremity runoff. The right dorsalis pedis artery is diminutive proximally and at not opacified starting at its midportion. 2. On the left, there is normal 2 vessel lower extremity runoff. The left dorsalis pedis artery is not opacified and the anterior tibial artery is not opacified past the ankle. 3. 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 4. Occluded left main renal artery with associated renal atrophy, with relatively preserved superior pole due to an accessory artery. 5. Right ovarian cyst up to 4.1 cm for which no follow-up is required. I have personally reviewed the images of this examination and agree with the resident's findings and interpretation. RECOMMENDATIONS: Unavailable Interpreted by: Amado Fletcher Preliminary Report By: Kennedy Morrison Electronically signed By Amado Fletcher Dictated Date: 04/07/2022 11:05:54 PM Prelim Date: 04/07/2022 11:32:13 PM Sign Date: 04/08/2022 12:13:00 AM Ordering Provider[facility] No data available for this section [facility] Evaluation + Plan note Future Appointments [facility] Evaluation + Plan note Future Appointments Appointment Date:04/19/2022 01:00:00 PM Scheduled Provider:SALVATORE ALEJO APRN-EDWARD Location:[facility] Appointment Type:PC OV Hospital Follow-Up [facility] Hospital Discharge instructions No data available for this section [facility] Note* ERICKSON CARDENAS MD: SIGN, VERIFY Event Display: VL Art Dopplers Both Legs Rest/PVR AOH [facility] Progress note No data available for this section [facility] Summary Purpose Family History No Family History Records FoundNo Family History Records Found Advance Directives No Advanced Directives Records FoundNo Advanced Directives Records Found Additional Source Comments INFORMATION SOURCE (unrecogn ized section and content) DATE CREATED AUTHOR AUTHOR'S ORGANXIOMY ATION 05/10/2023 [facility] ([place]) Care Team (unrecognized sect ion and content) Care Team Personnel Name: SALVATORE ALEJOFILM HISTORIAN Position: P4 Advanced Practice Nurse Member Role: Primary Care Physician Address: Address: [address] [place] [id number] Care Team Related Persons Name: HATTIE STEPHEN Address: [address], [place] [id number] [place] Name: HATTIE STEPHEN Address: [address], [place] [id number] [place] Name: HATTIE STEPHEN Address: [address], [place] [id number] [place] Name: HATTIE STEPHEN Address: [address], [place] [id number] [place] Name: HATTIE STEPHEN Address: [address], [place] [id number] [place] Name: HATTIE STEPHEN Address: [address], [place] [phone] [place] Name: HATTIE STEPHEN Address: [address], [place] [id number] Care Team Personnel Name: SALVATORE ALEJO APRN-FILM HISTORIAN Position: P4 Advanced Practice Nurse Member Role: Primary Care Physician Address: Address: [address] [place] [phone]- Name: Lexii Dumont Position: P3 Registration- Church Administrator Name: RAFAT BARNETTC Position: ED Physician Timber Poisoner Member Role: ED PA Address: Address: [facility] [place] [address]- Care Team Related Persons Name: HATTIE STEPHEN Address: [address], [place] [phone] [place] Name: HATTIE STEPHEN Address: [address], [place] [phone] [place] Name: HATTIE STEPHEN Address: [address], [place] [phone] [place] Name: HATTIE STEPHEN Address: [address], [place] [phone] [place] Name: HATTIE STEPHEN Address: [address], [place] [id number] [place] Name: HATTIE STEPHEN Address: [address], [place] [phone] [place] Name: ANABELLA MEJIA Care Team Personnel Name: SALVATORE ALEJO ORTHOPEDIC SPECIALIST-FILM HISTORIAN Position: P4 Advanced Practice Nurse Member Role: Primary Care Physician Address: Address: [address] [place] [address]- Care Team Related Persons Name: HATTIE STEPHEN Address: [address], [place] [phone] [place] Name: HATTIE STEPHEN Address: [address], [place] [id number] [place] Name: HATTIE STEPHEN Address: [address], [place] [phone] [place] Name: HATTIE STEPHEN Address: [address], [place] [phone] [place] Name: HATTIE STEPHEN Address: [address], [place] [phone] [place] Name: HATTIE STEPHEN Address: [address], [place] [phone] [place] Name: ANABELLA MEJIA Care Team Personnel Name: SALVATORE ALEJO ORTHOPEDIC SPECIALIST-FILM HISTORIAN Position: P4 Advanced Practice Nurse Member Role: Primary Care Physician Address: Address: [address], [place] [address] Care Team Related Persons Name: HATTIE STEPHEN Address: [address], [place] [phone] [place] Name: HATTIE STEPHEN Address: [address], [place] [phone] [place] Name: HATTIE STEPHEN Address: [place] [address], [place] [phone] [place] Name: HATTIE STEPHEN Address: [place] [address], [place] [phone] [place] Name: HATTIE STEPHEN Address: [address], [place] [phone] [place] Name: HATTIE STEPHEN Address: [place] [address], [place] [phone] [place] Name: JACKIE ANABELLA FOR RECORDS PERTAINING TO PATIENTS WHO ARE OR HAVE BEEN ENROLLED IN A CHEMICAL DEPENDENCY/SUBSTANCEABUSE PROGRAM, SOME INFORMATION MAY BE OMITTED. This clinical summary was aggregated from multiple sources. Caution should be exercised in using it in the provision of clinical care. This summary normalizes information from multiple sources, and as a consequence, information in this document may materially change the coding, format and clinical context of patient data. In addition, data may be omitted in some cases. CLINICAL DECISIONS SHOULD BE BASED ON THE PRIMARY CLINICAL RECORDS. [employer] provides no warranty or guarantee of the accuracy or completeness of information in this document.
[2023-05-29 19:41] VITALS: RESP 16
== END 2023-05-29 19:42 | disposition home or self-care (01) ==
PROVIDERS: Emergency Provider Student in an Organized Health Care Education/Training Program; PCP Nurse Practitioner Primary Care; Visit Provider Student in an Organized Health Care Education/Training Program
DX: S06.0X0A Concussion without loss of consciousness, initial encounter (principal); S05.12XA Contusion of eyeball and orbital tissues, left eye, initial encounter; M54.2 Cervicalgia; W20.8XXA Other cause of strike by thrown, projected or falling object, initial encounter; I10 Essential (primary) hypertension; E78.00 Pure hypercholesterolemia, unspecified; F17.210 Nicotine dependence, cigarettes, uncomplicated; Z79.01 Long term (current) use of anticoagulants; Z79.02 Long term (current) use of antithrombotics/antiplatelets; Z79.82 Long term (current) use of aspirin; Z79.899 Other long term (current) drug therapy; I25.2 Old myocardial infarction; Z86.718 Personal history of other venous thrombosis and embolism
CPT/HCPCS: 70450; 70486; 72125; 99282